=== PATIENT | female | born 1950 | race Caucasian/White ===

== ENCOUNTER 2022-11-23 08:17 | Outpatient (OUT) | payer MEDICARE, OTHER, SELFPAY ==
[2022-11-23 09:02] LABS: Basophils Percent Auto 0.9 % (0.2-2.0); Eosinophils Absolute Auto 0.2 10^3/uL (0.0-0.7); Eosinophils Percent Auto 5.2 % (0.9-7.0); Hematocrit 39.9 % (36.0-48.0); Hemoglobin 13.1 g/dL (12.0-16.0); Immature Granulocytes Abs Auto 0.01 10^3/uL (0.00-0.03); Immature Granulocytes Pct Auto 0.2 % (0.0-0.5); Lymphocytes Absolute Auto 1.5 10^3/uL (1.2-3.8); Lymphocytes Percent Auto 34.4 % (20.5-60.0); Mean Corpuscular HGB Conc 32.8 g/dL (29.9-35.2); Mean Corpuscular Hemoglobin 32.1 pg (26.7-34.0); Mean Corpuscular Volume 97.8 fL (81.0-99.0); Mean Platelet Volume 9.5 fL (9.5-13.5); Monocytes Absolute Auto 0.4 10^3/uL (0.3-0.8); Monocytes Percent Auto 8.8 % (1.7-12.0); Neutrophils Absolute Auto 2.2 10^3/uL (1.4-6.5); Neutrophils Percent Auto 50.5 % (43.0-75.0); Platelet Count 257 10^3/uL (150-450); Red Blood Count 4.08 10^6/uL (4.20-5.40); Red Cell Distribution Width 11.9 % (11.0-15.0); White Blood Count 4.4 10^3/uL (4.0-11.0)
[2022-11-23 10:13] LABS: Estimated Average Glucose 117 mg/dL; Glycohemoglobin A1C 5.7 % (4.5-6.2)
[2022-11-23 10:19] LABS: Alanine Aminotransferase 21 U/L (14-59); Albumin Globulin Ratio 1.1; Albumin Level 3.7 g/dL (3.4-5.0); Alkaline Phosphatase 88 U/L (46-116); Anion Gap 12.2; Aspartate Amino Transferase 20 U/L (15-37); Bilirubin Total 0.6 mg/dL (0.2-1.0); Chloride 106 mmol/L (98-107); Estimated GFR (African America >60 (>=60); Estimated GFR (Non-African Ame 55 (>=60); Globulin 3.4 g/dL; Glucose 99 mg/dL (74-106); Potassium 4.2 mmol/L (3.5-5.1); Sodium 141 mmol/L (136-145); Total Protein 7.1 g/dL (6.4-8.2)
[2022-11-23 10:29] LABS: Chol HDL Ratio 2.2; Cholesterol 173 mg/dL (<=200); HDL Cholesterol 77 mg/dL (40-60); Thyroid Stimulating Hormone 2.484 uIU/mL (0.358-3.740); Triglycerides 103 mg/dL (<=150); VLDL CHOLESTEROL 20.6 mg/dL
== END 2022-11-23 08:18 | disposition home or self-care (01) ==
LOC: LAB 08:25
PROVIDERS: PCP Family Medicine; Visit Provider Family Medicine
DX: I10 Essential (primary) hypertension (principal); M91.0 Juvenile osteochondrosis of pelvis; M19.90 Unspecified osteoarthritis, unspecified site; R73.9 Hyperglycemia, unspecified
CPT/HCPCS: 36415; 80053; 80061; 82306; 83036; 84436; 84443; 85025

== ENCOUNTER 2023-01-19 09:15 | Outpatient (OUT) | payer MEDICARE, OTHER, SELFPAY ==
--- NOTE | 2023-01-19 09:23 | XR_ITS ---
[address] [address] Patient Name: GALDINO STAHL MRN: [id number] date: 1950 Sex: F Assigned Patient Location: [facility] Current Patient Location: [facility] Accession/Order Number: [id number] Exam Date: 01/19/2023 09:28 Report Date: 01/19/2023 10:18 At the request of: LISA YEPEZ Procedure: XR lumbar spine 2-3V EXAM: XR lumbar spine 2-3V HISTORY: Lumbar Spondylosis M47.816 COMPARISON: None. TECHNIQUE: 3 views FINDINGS: Mild to moderate S-shaped convex curvature of the lumbar spine. Maintained vertebral body heights and disc spaces. Mild facet arthropathy of L4-S1. No acute fracture. Nonobstructive bowel gas pattern. XR/XR lumbar spine 2-3V IMPRESSION: Facet arthropathy as above. Electronically authenticated by: KEYLA KAPLAN Date: 01/19/2023 10:18
== END 2023-01-19 09:16 | disposition home or self-care (01) ==
LOC: RAD 09:17
PROVIDERS: PCP Family Medicine; Visit Provider Family Medicine
DX: M47.816 Spondylosis without myelopathy or radiculopathy, lumbar region (principal)
CPT/HCPCS: 72100

== ENCOUNTER 2023-11-30 08:27 | Outpatient (OUT) | payer MEDICARE, OTHER, SELFPAY ==
--- NOTE | 2023-11-30 | XR_ITS ---
The [address] [address] Patient Name: GALDINO STAHL MRN: [id number] date: 1950 Sex: F Assigned Patient Location: LAB Current Patient Location: LAB Accession/Order Number: [id number] Exam Date: 11/30/2023 08:50 Report Date: 11/30/2023 09:38 At the request of: LISA YEPEZ Procedure: XR lumbar spine 2-3V EXAMINATION: XR lumbar spine 2-3V HISTORY: M46.1, Inflammation of both sacroiliac joints COMPARISON: 01/19/2023 FINDINGS: BONES: Rotatory dextroscoliosis centered at L3. Mild degenerative spondylosis. [id number] facet osteoarthropathy DISC SPACES: Normal. No significant disc height narrowing, subluxation, or endplate abnormality. PARASPINOUS: Negative. No paraspinous abnormality is seen. OTHER: No acute abnormality of the sacroiliac joints. XR/XR lumbar spine 2-3V IMPRESSION: Stable degenerative changes with rotatory dextroscoliosis Electronically authenticated by: STUART SOL Date: 11/30/2023 09:38
[2023-11-30 08:48] LABS: Basophils Percent Auto 0.9 % (0.2-2.0); Eosinophils Absolute Auto 0.3 10^3/uL (0.0-0.7); Eosinophils Percent Auto 6.7 % (0.9-7.0); Hematocrit 41.8 % (36.0-48.0); Hemoglobin 13.5 g/dL (12.0-16.0); Lymphocytes Absolute Auto 1.6 10^3/uL (1.2-3.8); Lymphocytes Percent Auto 34.4 % (20.5-60.0); Mean Corpuscular HGB Conc 32.3 g/dL (29.9-35.2); Mean Corpuscular Hemoglobin 31.7 pg (26.7-34.0); Mean Corpuscular Volume 98.1 fL (81.0-99.0); Mean Platelet Volume 9.5 fL (9.5-13.5); Monocytes Absolute Auto 0.5 10^3/uL (0.3-0.8); Monocytes Percent Auto 9.7 % (1.7-12.0); Neutrophils Absolute Auto 2.2 10^3/uL (1.4-6.5); Neutrophils Percent Auto 48.3 % (43.0-75.0); Platelet Count 268 10^3/uL (150-450); Red Blood Count 4.26 10^6/uL (4.20-5.40); Red Cell Distribution Width 11.9 % (11.0-15.0); White Blood Count 4.6 10^3/uL (4.0-11.0)
[2023-11-30 09:06] LABS: Estimated Average Glucose 117 mg/dL; Glycohemoglobin A1C 5.7 % (4.5-6.2)
[2023-11-30 09:17] LABS: Anion Gap 14.3; Carbon Dioxide 26.2 mmol/L (21.0-32.0); Chloride 105 mmol/L (98-107); Estimated GFR (African America >60 (>=60); Estimated GFR (Non-African Ame 52 (>=60); Glucose 108 mg/dL (74-106); Potassium 4.5 mmol/L (3.5-5.1); Sodium 141 mmol/L (136-145)
== END 2023-11-30 08:28 | disposition home or self-care (01) ==
LOC: LAB 08:29
PROVIDERS: PCP Family Medicine; Visit Provider Family Medicine
DX: Z00.00 Encounter for general adult medical examination without abnormal findings (principal); M46.1 Sacroiliitis, not elsewhere classified; R73.9 Hyperglycemia, unspecified; R79.89 Other specified abnormal findings of blood chemistry
CPT/HCPCS: 36415; 72100; 80048; 82306; 83036; 85025

== ENCOUNTER 2023-12-27 10:20 | Outpatient (OUT) | payer MEDICARE, OTHER, SELFPAY ==
--- OUTSIDE RECORDS SUMMARY | 2023-12-27 10:42 | XMS_ITS | CCD ---
Author Organization [facility] Care Team Providers Care Account Development Specialist Name Role Phone HOUSE, DR PICKARD Admitting Unavailable HOUSE, DR PICKARD Attending Unavailable HOUSE, DR PICKARD Consulting Unavailable HOUSE, DR PICKARD Primary Care Unavailable HOUSE, DR PICKARD Admitting Unavailable HOUSE, DR PICKARD Attending Unavailable HOUSE, DR PICKARD Consulting Unavailable HOUSE, DR PICKARD Primary Care Unavailable MONICA, DR ELLIOTT Paredes Consulting Unavailable HOUSE, DR PICKARD Admitting Unavailable HOUSE, DR PICKARD Attending Unavailable HOUSE, DR PICKARD Consulting Unavailable HOUSE, DR PICKARD Primary Care Unavailable HOUSE, DR PICKARD Admitting Unavailable HOUSE, DR PICKARD Attending Unavailable HOUSE, DR PICKARD Consulting Unavailable HOUSE, DR PICKARD Primary Care Unavailable Crystal Jose Unavailable Allergies Allergy Classification Reported Allergen(s) Allergy Type Date of Onset Reaction(s) Facility (3 sources) methylPREDNISolone Drug Allergy bad reaction [facility] [employer] Other Medications Current Medications Medication Drug Class(es) Dates Sig (Normalized) Sig (Original) Calcium (3 sources) Phosphate Binder, Calcium Calcium + D Active calcium carbonate 1250 mg oral tablet (1 source) Start: 11-28-2023 take 500 mg by mouth once daily Calcium Carbonate Active 500 MG PO Daily November 28, 2023 12:00am cholecalciferol 0.025 mg oral capsule (2 sources) Vitamin D Start: 11-28-2023 End: 11-29-2023 take 25 ug by mouth once daily Cholecalciferol (Vitamin D3) Active 25 MCG PO Daily November 29, 2023 1:49pm doxycycline hyclate 50 mg delayed release oral tablet (3 sources) Tetracycline-class Drug take 1 tablet by mouth every twenty-four hours Doxycycline Hyclate 50 MG 1 tablet once a day Active metroNIDAZOLE (3 sources) Nitroimidazole Antimicrobial metroNIDAZOLE Active raloxifene hydrochloride 60 mg oral tablet (5 sources) Estrogen Agonist/Antagonist Start: 11-28-2023 End: 11-29-2023 take 1 tablet by mouth once daily Raloxifene Active 60 MG PO Daily November 29, 2023 2:18pm Free[employer] tablet once a day; Note: Source Status: Taking; Provider: Damon Rojas ( ) take 1 tablet by maru th every twenty-four hours Raloxifene HCl 60 MG 1 tablet once a day Active salmon calcitonin 200 unt/actuat nasal spray (9 sources) Calcitonin Start: 11-28-2023 End: 11-29-2023 Calcitonin ([place]) Active 1 SPRAY intranasal (ALT) Daily November 29, 2023 2:18pm Fortical Active Calcitonin ([place]m on) Active Vitamin D (3 sources) Vitamin D Active Completed/Discontinued Medications Medication Drug Class(es) Dates Sig (Normalized) Sig (Original) acetaminophen 325 mg / HYDROcodone bitartrate 5 mg oral tablet (4 sources) Opioid Agonist Start: 11-28-2023 End: 11-29-2023 take 1 tablet by mouth every six hours as needed Hydrocodone-Acetami nophen Discontinued 1 TAB PO Every 6 hours November 28, 2023 12:00am November 29, 2023 1:49pm [employer] tablet as needed Orally every 6 hrs; Note: Source Status: Start; Refills: 0; Qty: 28 Tablet; Provider: Damon Stratton Start: 01-20-2023 take 1 tablet by maru th every six hours HYDROcodone-Acetaminophen 5-325 MG 1 tab let as needed Orally every 6 hrs for 7 days Jan, Active Problems Active Problems Problem Classification Problem Date Documented Da te Episodic/Chronic Chronic kidney disease (4 sources) Chronic kidney disease, unspecified; Translations: [CHRONIC KIDNEY DISEASE UNSPECIFIED] Onset: 03-03-2021 Chronic Diabetes mellitus without complication (3 sources) Hyperglycemia, unspecified; Translations: [Hyperglycemia] Onset: 12-02-2021 11-29-2023 Episodic Essential hypertension (1 source) Essential (primary) hypertension; Translations: [ESSENTIAL PRIMARY HYPERTENSION] Onset: 12-02-2021 Chronic Osteoarthritis (1 source) Unspecified osteoarthritis, unspecified site; Translations: [UNSPECIFIED OSTEOARTHRITIS UNS SITE] Onset: 12-02-2021 Chronic Osteoporosis (7 sources) Age-related osteoporosis without current pathological fracture; Translations: [Osteoporosis] Onset: 11-29-2021 Chronic Other bone disease and musculoskeletal deformities (1 source) Osteopenia; Translations: [Other specified disorders of bone density and structure, unspecified site] 11-29-2023 Episodic Other bone disease and musculoskeletal deformities (1 source) Other specified disorders of bone density and structure, unspecified site; Translations: [Disorder of bone and cartilage, unspecified] 11-29-2023 Episodic Other nervous system disorders (3 sources) Right-sided piriformis syndrome; Translations: [Lesion of sciatic nerve, right lower limb] Chronic Other nervous system disorders (1 source) Lesion of sciatic nerve, right lower limb Chronic Other screening for suspected conditions (not mental disorders or infectious disease) (6 sources) Encounter for screening mammogram for malignant neoplasm of breast; Translations: [Decreased vitamin D] Onset: 01-25-2022 Episodic Spondylosis; intervertebral disc disorders; other back problems (6 sources) Lumbar spondylosis; Translations: [Spondylosis without myelopathy or radiculopathy, lumbar region] Chronic Past or Other Problems Problem Classification Problem Date Documented Date Episodic/Chronic Disorders of teeth and jaw (1 source) Arthralgia of temporomandibular joint, unspecified side; Translations: [ARTHRALGIA TMD JOINT UNSPEC SIDE] Onset: 02-15-2021 Episodic Other connective tissue disease (4 sources) Myalgia, unspecified site; Translations: [MYALGIA UNSPECIFIED SITE] Onset: 01-31-2021 Episodic Other nervous system disorders (1 source) Drug-induced myopathy; Translations: [DRUG-INDUCED MYOPATHY] Onset: 02-15-2021 Episodic Results Test Name Value Interpretation Reference Range Facility XR DEXA BONE DENSITYon 01-26 XR DEXA BONE DENSITY EXAMINATION: XR DEX A BONE DENSITY, 01/25/2022 9:55 AM EDT HISTORY: Osteoporosis COMPARISON: DEXA bone densitometry 11/13/2018 TECHNIQUE: Dual-energy X-ray absorptiometry (DEXA) bone density study performed for the axial skeleton. FINDINGS: SPINE ANALYSIS: Average bone mineral density is 0.57 g/cm2. T-score (standard deviation relative to young adult mean): -2.7 . -3.0% change since prior study. HIP ANALYSIS: Lowest bone mineral density is within the femoral neck, 0.722 g/cm2. T-score (standard deviation relative to young adult mean): -2.3 . -1.1% change since prior study. IMPRESSION: World Torin Organization Classification: Osteoporosis - High Fracture Risk Electronically authenticated by: ELLIOTT BECERRIL Date: 2022-01-26 06:54 Normal [facility] MG MAMM SCREEN 3D KING CADon 01-25-2022 MG MAMM SCREEN 3D KING CAD Patient: ABBY STAHL Exam Date: 01/25/2022 : 1950 Gender:F Ordering : DR MELLY OH D.O. Admission #: [id number] Family : Order #: [id number] CLICK HERE TO VIEW EXAM RADIOLOGY REPORT PROCEDURE: MAMMOGRAM SCREENING 3D BILATERAL CAD COMPARISON: MG MAMM SCREEN KING W CAD, 10/09/2018. MG MAMM SCREEN KING W CAD, 12/06/2016. INDICATIONS: Screening mammography Calculator Name NCI Breast Cancer Risk Assessment Tool 5 Year Breast Cancer Risk 1.90% Lifetime Breast Cancer Risk 5.90% Personal Breast Cancer No Personal Ovarian Cancer No Treatments None Family Cancers None LOCATION: [facility] BREAST COMPOSITION: Heterogeneously dense,which may obscure small masses. FINDINGS: DIAGNOSTIC CATEGORY 1--NEGATIVE. RIGHT BREAST: No significant suspicious finding. No significant change has occurred. LEFT BREAST: No significant suspicious finding. No significant change has occurred. RECOMMENDATIONS: ROUTINE MAMMOGRAM AND CLINICAL EVALUATION IN 12 MONTHS. PLEASE NOTE: A NORMAL MAMMOGRAM DOES NOT EXCLUDE THE POSSIBILITY OF BREAST CANCER. A CLINICALLY SUSPICIOUS PALPABLE LUMP SHOULD BE BIOPSIED. Dictated by: Elliott Becerril M.D. on 01/25/2022 at 13:51 Approved by: Elliott Becerril M.D. on 01/25/2022 at 13:54 Normal [facility] CBC AUTO DIFFon 11-29-2021 BASO # 0.0 103/ul Normal 0.0-0.1 [facility] Comment on above: Performed By: #### C BC #### [facility] [address] [address] [address] Torri Gomez Basophils/100 WBC (Bld) 0.7 % Normal 0.2-2.0 [facility] Comment on above: Performed By: #### C BC #### [facility] [address] [place] [address] Dr. Torri Gomez EO # 0.1 103/ul Normal 0.0-0.[address] [facility] Comment on above: Performed By: #### C BC #### [facility] [address] [place] [address] Dr. Torri Gomez Eosinophils/100 WBC (Bld) 2.4 % Normal 0.9-7.0 [facility] Comment on above: Performed By: #### C BC #### [facility] [address] [place] [address] Dr. Torri Gomez Erythrocyte distribution width (RBC) [Ratio] 11.7 % Normal 11.0-15.0 [facility] Comment on above: Performed By: #### C BC #### [facility] [address] [place] [address] Dr. Torri Gomez Hematocrit (Bld) [Volume fraction] 43.5 % Normal 36.0-48.0 [facility] Comment on above: Performed By: #### C BC #### [facility] [address] [place] [address] Dr. Torri Gomez Hemoglobin (Bld) [Mass/Vol] 14.2 g/dL Normal 12.0-16.[address] [facility] Comment on above: Performed By: #### C BC #### [facility] [address] [place] [address] Dr. Torri Gomez IG # 0.01 10e3/ul Normal 0.00-0.03 [facility] Comment on above: Performed By: #### C BC #### [facility] [address] [place] [address] Dr. Torri Gomez IG % 0.2 % Normal 0.0-0.[address] [facility] Comment on above: Performed By: #### C BC #### [facility] [address] [place] [address] Dr. Torri Gomez LYMPH # 1.5 103/ul Normal 1.2-3.[address] [facility] Comment on above: Performed By: #### C BC #### [facility] [address] [place] [address] Dr. Torri Gomez Lymphocytes/100 WBC (Bld) 35.6 % Normal 20.5-60.0 [facility] Comment on above: Performed By: #### C BC #### [facility] [address] [place] [address] Dr. Torri Gomez MANUAL DIFF REQ NO Normal [facility] Comment on above: Performed By: #### C BC #### [facility] [address] [place] [address] Dr. Torri Gomez MCH (RBC) [Entitic mass] 32.3 pg Normal 26.7-34.0 [facility] Comment on above: Performed By: #### C BC #### [facility] [address] [place] [address] Dr. Torri Gomez MCHC (RBC) [Mass/Vol] 32.6 g/dL Normal 29.9-35.2 [facility] Comment on above: Performed By: #### C BC #### [facility] [address] [place] [address] Dr. Torri Gomez MCV (RBC) [Entitic vol] 98.9 fL Normal 81.0-99.0 [facility] Comment on above: Performed By: #### C BC #### [facility] [address] [place] [address] Dr. Torri Gomez MONO # 0.4 103/ul Normal 0.3-0.[address] [facility] Comment on above: Performed By: #### C BC #### [facility] [address] [place] [address] Dr. Torri Gomez Monocytes/100 WBC (Bld) 9.8 % Normal 1.7-12.[address] [facility] Comment on above: Performed By: #### C BC #### [facility] [address] [place] [address] Dr. Torri Gomez NEUT # 2.2 103/ul Normal 1.4-6.5 [facility] Comment on above: Performed By: #### C BC #### [facility] [address] [place] [address] Dr. Torri Gomez Neutrophils/100 WBC (Bld) 51.3 % Normal 43.0-75.0 [facility] Comment on above: Performed By: #### C BC #### [facility] [address] [place] [address] Dr. Torri Gomez Platelet mean volume (Bld) [Entitic vol] 10.4 fL Normal 9.5-13.5 [facility] Comment on above: Performed By: #### C BC #### [facility] [address] [place] [address] Dr. Torri Gomez PLT 269 103/ul Normal 150-450 [facility] Comment on above: Performed By: #### C BC #### [facility] [address] [place] [address] Dr. Torri Gomez RBC 4.40 106/ul Normal 4.20-5.40 [facility] Comment on above: Performed By: #### C BC #### [facility] [address] [place] [address] Dr. Torri Gomez WBC 4.2 103/ul Normal 4.0-11.0 [facility] Comment on above: Performed By: #### C BC #### [facility] [address] [place] [address] Dr. Torri Gomez GLYCOHEMOGLOBIN A1Con 2021 ADA RECOMMENDATION SEE BELOW Normal [facility] Comment on above: Result Comment: ADA RECOMMENDED LIMIT 4.0 - 6.0 ADA THERAPEUTIC TARGET < 7.0 ACTION SUGGESTED > 7.0 Performed By: #### M CHANTAL, CMP #### [facility] [address] [place] [address] Jesi Briscoe Glucose [Mass/Vol] 120 mg/dL Normal [facility] Comment on above: Performed By: #### M CHANTAL, CMP #### [facility] [address] [place] [address] Jesi Briscoe HbA1c (Bld) [Mass fraction] 5.8 % Normal 4.5-6.2 [facility] Comment on above: Performed By: #### M CHANTAL, CMP #### [facility] [address] [place] [address] Jesi Briscoe LIPID PROFILEon 11-29-2021 CHOL-HDL RATIO NORM SEE BELOW Normal [facility] Comment on above: Result Comment: 3.3 - 4.4 LOW RISK 4.4 - 7.1 AVERAGE RISK 7.1 - 11.0 MODERATE RISK >11.0 HIGH RISK Performed By: #### T 4, LIPID, TSH, CMP #### [facility] [address] [address] [address] Torri Gomez Cholesterol [Mass/Vol] 198 mg/dL Normal <=200 [facility] Comment on above: Performed By: #### T 4, LIPID, TSH, CMP #### [facility] [address] [address] [address] Torri Gomez Cholesterol in HDL [Mass/Vol] 79 mg/dL Critically high 40-60 [facility] Comment on above: Performed By: #### T 4, LIPID, TSH, CMP #### [facility] [address] [address] [address] Torri Gomez Cholesterol in LDL [Mass/Vol] 101.0 mg/dL Normal [facility] Comment on above: Performed By: #### T 4, LIPID, TSH, CMP #### [facility] [address] [address] [address] Torri Gomez Cholesterol.total/Cho lesterol in HDL [Mass ratio] 2.5 {ratio} Normal [facility] Comment on above: Performed By: #### T 4, LIPID, TSH, CMP #### [facility] [address] [address] [address] Torri Gomez HDL NORMAL > or = 60 mg/dl - LO W CARDIOVASCULAR RISK <40 mg/dl - HIGH CARDIOVASCULAR RISK Normal [facility] Comment on above: Performed By: #### T 4, LIPID, TSH, CMP #### [facility] [address] [place] [address] Dr. Torri Gomez LDL CALC NORMAL SEE BELOW Normal [facility] Comment on above: Result Comment: <100 mg/dl OPTIMAL 100 - 129 mg/dl NEAR OR ABOVE OPTIMAL 130 - 159 mg/dl BORDERLINE HIGH 160 - 189 mg/dl HIGH >190 mg/dl VERY HIGH Performed By: #### T 4, LIPID, TSH, CMP #### [facility] [address] [place] [address] Dr. Torri Gomez Triglyceride [Mass/Vol] 90 mg/dL Normal <=150 [facility] Comment on above: Performed By: #### T 4, LIPID, TSH, CMP #### [facility] [address] [place] [address] Dr. Torri Gomez VLDL CALC 18.0 mg/dL Normal [facility] Comment on above: Performed By: #### T 4, LIPID, TSH, CMP #### [facility] [address] [place] [address] Dr. Torri Gomez PROF 14(COMP METB)on 022 Albumin [Mass/Vol] 4.1 g/dL Normal 3.4-5.0 [facility] Comment on above: Performed By: #### T 4, LIPID, TSH, CMP #### [facility] [address] [place] [address] Dr. Torri Gomez Albumin/Globulin [Mass ratio] 1.2 {ratio} Normal [facility] Comment on above: Performed By: #### T 4, LIPID, TSH, CMP #### [facility] [address] [place] [address] Dr. Torri Gomez ALP [Catalytic activity/Vol] 88 U/L Normal 46-116 [facility] Comment on above: Performed By: #### T 4, LIPID, TSH, CMP #### [facility] [address] [place] [address] Dr. Torri Gomez ALT [Catalytic activity/Vol] 22 U/L Normal 14-59 [facility] Comment on above: Performed By: #### T 4, LIPID, TSH, CMP #### [facility] [address] [place] [address] Dr. Torri Gomez Anion gap [Moles/Vol] 13.6 mmol/L Normal [facility] Comment on above: Performed By: #### T 4, LIPID, TSH, CMP #### [facility] [address] [place] [address] Dr. Torri Gomez AST [Catalytic activity/Vol] 18 U/L Normal 15-37 [facility] Comment on above: Performed By: #### T 4, LIPID, TSH, CMP #### [facility] [address] [place] [address] Dr. Torri Gomez Bilirubin [Mass/Vol] 0.5 mg/dL Normal 0.2-1.0 [facility] Comment on above: Performed By: #### T 4, LIPID, TSH, CMP #### [facility] [address] [place] [address] Dr. Torri Gomez Calcium [Mass/Vol] 9.1 mg/dL Normal 8.5-10.1 [facility] Comment on above: Performed By: #### T 4, LIPID, TSH, CMP #### [facility] [address] [place] [address] Dr. Torri Gomez Chloride [Moles/Vol] 104 mmol/L Normal 98-107 [facility] Comment on above: Performed By: #### T 4, LIPID, TSH, CMP #### [facility] [address] [place] [address] Dr. Torri Gomez CO2 [Moles/Vol] 26.8 mmol/L Normal 21.0-32.0 [facility] Comment on above: Performed By: #### T 4, LIPID, TSH, CMP #### [facility] [address] [place] [address] Dr. Torri Gomez Creatinine [Mass/Vol] 1.06 mg/dL Critically high 0.55-1.02 [facility] Comment on above: Performed By: #### T 4, LIPID, TSH, CMP #### [facility] [address] [place] [address] Dr. Torri Gomez EGFR-AF [place] >60 Normal >=60 [facility] Comment on above: Performed By: #### T 4, LIPID, TSH, CMP #### [facility] [address] [place] [address] Dr. Torri Gomez EGFR-NON AF [place] 51 mL/min/1.73m2 Critically low >=[address] [facility] Comment on above: Performed By: #### T 4, LIPID, TSH, CMP #### [facility] [address] [place] [address] Dr. Torri Gomez Globulin (S) [Mass/Vol] 3.4 g/dL Normal [facility] Comment on above: Performed By: #### T 4, LIPID, TSH, CMP #### [facility] [address] [place] [address] Dr. Torri Gomez Glucose [Mass/Vol] 93 mg/dL Normal 74-106 [facility] Comment on above: Performed By: #### T 4, LIPID, TSH, CMP #### [facility] [address] [place] [address] Dr. Torri Gomez Potassium [Moles/Vol] 4.4 mmol/L Normal 3.5-5.1 [facility] Comment on above: Performed By: #### T 4, LIPID, TSH, CMP #### [facility] [address] [place] [address] Dr. Torri Gomez Protein [Mass/Vol] 7.5 g/dL Normal 6.4-8.2 [facility] Comment on above: Performed By: #### T 4, LIPID, TSH, CMP #### [facility] [address] [place] [address] Dr. Torri Gomez Sodium [Moles/Vol] 140 mmol/L Normal 136-145 [facility] Comment on above: Performed By: #### T 4, LIPID, TSH, CMP #### [facility] [address] [place] [address] Dr. Torri Gomez Urea nitrogen [Mass/Vol] 21.0 mg/dL Critically high 7.0-18.0 [facility] Comment on above: Performed By: #### T 4, LIPID, TSH, CMP #### [facility] [address] [place] [address] Dr. Torri Gomez Urea nitrogen/Creatinine [Mass ratio] 19.8 mg/mg Normal [facility] Comment on above: Performed By: #### T 4, LIPID, TSH, CMP #### [facility] [address] [place] [address] Dr. Torri Gomez T4on 11-29-2021 T4 [Mass/Vol] 6.70 ug/dL Normal 4.80-13.90 [facility] Comment on above: Performed By: #### M CHANTAL, CMP #### [facility] [address] [place] [address] Jesi Lamaren TSHon 11-29-2021 TSH 2.359 uIU/mL Normal 0.358-3.740 [facility] Comment on above: Performed By: #### T 4, LIPID, TSH, CMP #### [facility] [address] [place] [address] Dr. Torri Gomez VITAMIN D 25 OHon 11-29-2021 VIT D 25-OH 70.8 ng/mL Normal [facility] Comment on above: Performed By: #### Danielle CORNEJO, CMP #### [facility] [address] [place] [address] Jesisanaz Briscoe VIT D RANGES SEE BELOW Normal [facility] Comment on above: Result Comment: <20 ng/mL Vit D deficient 20 - <30 ng/mL Vit D insufficient 30 - 100 ng/mL Vit D sufficient >100 ng/mL Potential Toxicity Performed By: #### Danielle CORNEJO, CMP #### [facility] [address] [place] [address] Jesi Lamaren PROF 14(COMP METB)on 021 Albumin [Mass/Vol] 4.0 g/dL Normal 3.5-5.0 [facility] Comment on above: Performed By: #### C MP #### [facility] [address] [place] [address] Dr. Torri Gomez Albumin/Globulin [Mass ratio] 1.2 {ratio} Normal [facility] Comment on above: Performed By: #### C MP #### [facility] [address] [place] [address] Dr. Torri Gomez ALP [Catalytic activity/Vol] 83 U/L Normal 38-126 [facility] Comment on above: Performed By: #### C MP #### [facility] [address] [place] [address] Dr. Torri Gomez ALT [Catalytic activity/Vol] 16 U/L Normal 9-52 [facility] Comment on above: Performed By: #### C MP #### [facility] [address] [address] [address] Torri Gomez Anion gap [Moles/Vol] 13.9 mmol/L Normal Th e [facility] Comment on above: Performed By: #### C MP #### [facility] [address] [address] [address] Torri Gomez AST [Catalytic activity/Vol] 28 U/L Normal 14-36 [facility] Comment on above: Performed By: #### C MP #### [facility] [address] [address] [address] Torri Gomez Bilirubin [Mass/Vol] 0.6 mg/dL Normal 0.2-1.3 [facility] Comment on above: Performed By: #### C MP #### [facility] [address] [address] [address] Torri Gomez Calcium [Mass/Vol] 9.1 mg/dL Normal 8.4-10.2 [facility] Comment on above: Performed By: #### C MP #### [facility] [address] [address] [address] Torri Gomez Chloride [Moles/Vol] 103 mmol/L Normal 98-107 [facility] Comment on above: Performed By: #### C MP #### [facility] [address] [address] [address] Torri Gomez CO2 [Moles/Vol] 25.1 mmol/L Normal 22.0-30.[address] [facility] Comment on above: Performed By: #### C MP #### [facility] [address] [address] [address] Torri Gomez Creatinine [Mass/Vol] 1.07 mg/dL Critically high 0.52-1.04 [facility] Comment on above: Performed By: #### C MP #### [facility] [address] [address] [address] Torri Gomez EGFR-AF [place]AN >60 Normal >=[address] [facility] Comment on above: Performed By: #### C MP #### [facility] [address] [address] [address] Torri Gomez EGFR-NON AF [place] 51 mL/min/1.73m2 Critically low >=60 [facility] Comment on above: Performed By: #### C MP #### [facility] [address] [address] [address] Torri Gomez Globulin (S) [Mass/Vol] 3.4 g/dL Normal [facility] Comment on above: Performed By: #### C MP #### [facility] [address] [address] [address] Torri Gomez Glucose [Mass/Vol] 131 mg/dL Critically high 74-106 [facility] Comment on above: Performed By: #### C MP #### [facility] [address] [address] [address] Torri Gomez Potassium [Moles/Vol] 5.0 mmol/L Normal 3.4-5.0 [facility] Comment on above: Performed By: #### C MP #### [facility] [address] [address] [address] Torri Gomez Protein [Mass/Vol] 7.4 g/dL Normal 6.1-8.2 [facility] Comment on above: Performed By: #### C MP #### [facility] [address] [address] [address] Torri Gomez Sodium [Moles/Vol] 137 mmol/L Normal 137-145 [facility] Comment on above: Performed By: #### C MP #### [facility] [address] [address] [address] Torri Gomez Urea nitrogen [Mass/Vol] 26.0 mg/dL Critically high 7.0-17.0 [facility] Comment on above: Performed By: #### C MP #### [facility] [address] [address] [address] Torri Gomez Urea nitrogen/Creatinine [Mass ratio] 24.3 mg/mg Normal [facility] Comment on above: Performed By: #### C MP #### [facility] [id number] Torri Gomez CBC AUTO DIFFon 01-31-2021 BASO # 0.0 103/ul Normal 0.0-0.1 [facility] Comment on above: Performed By: #### C BC #### [facility] [address] [place], [place] [address] Jesi Rachna Basophils/100 WBC (Bld) 0.4 % Normal 0.2-2.[address] [facility] Comment on above: Performed By: #### C BC #### [facility] [address] [place] [address] Jesi Rachna EO # 0.0 103/ul Normal 0.0-0.7 [facility] Comment on above: Performed By: #### C BC #### [facility] [address] [place] [address] Jesi Rachna Eosinophils/100 WBC (Bld) 0.6 % Critically low 0.9-7.0 [facility] Comment on above: Performed By: #### C BC #### [facility] [address] [place] [address] Jesi Rachna Erythrocyte distribution width (RBC) [Ratio] 11.9 % Normal 11.0-15.0 [facility] Comment on above: Performed By: #### C BC #### [facility] [address] [place] [address] Jesi Rachna Hematocrit (Bld) [Volume fraction] 38.5 % Normal 36.0-48.[address] [facility] Comment on above: Performed By: #### C BC #### [facility] [address] [place] [address] Jesi Rachna Hemoglobin (Bld) [Mass/Vol] 12.1 g/dL Normal 12.0-16.[address] [facility] Comment on above: Performed By: #### C BC #### [facility] [address] [place] [address] Jesi Rachna IG # 0.01 10e3/ul Normal 0.00-0.[address] [facility] Comment on above: Performed By: #### C BC #### [facility] [address] [id number] Jesi Rachna IG % 0.1 % Normal 0.0-0.[address] [facility] Comment on above: Performed By: #### C BC #### [facility] [address] [place], [place] [address] Jesi Rachna LYMPH # 1.7 103/ul Normal 1.2-3.[address] [facility] Comment on above: Performed By: #### C BC #### [facility] [address] [place], [place] [address] Jesi Rachna Lymphocytes/100 WBC (Bld) 26.1 % Normal 20.5-60.[address] [facility] Comment on above: Performed By: #### C BC #### [facility] [address] [place], [place] [address] Jesi Rachna MANUAL DIFF REQ NO Normal [facility] Comment on above: Performed By: #### C BC #### [facility] [address] [place] [address] Jesi Rachna MCH (RBC) [Entitic mass] 31.8 pg Normal 26.7-34.0 [facility] Comment on above: Performed By: #### C BC #### [facility] [address] [place] [address] Jesi Rachna MCHC (RBC) [Mass/Vol] 31.4 g/dL Normal 29.9-35.[address] [facility] Comment on above: Performed By: #### C BC #### [facility] [address] [place] [address] Jesi Rachna MCV (RBC) [Entitic vol] 101.0 fL Critically high 81.0-99.[address] [facility] Comment on above: Performed By: #### C BC #### [facility] [address] [place] [address] Jesi Rachna MONO # 0.4 103/ul Normal 0.3-0.[address] [facility] Comment on above: Performed By: #### C BC #### [facility] [address] [place], [place] [address] Jesi Rachna Monocytes/100 WBC (Bld) 5.2 % Normal 1.7-12.[address] [facility] Comment on above: Performed By: #### C BC #### [facility] [address] [place] [address] Jesi Briscoe NEUT # 4.5 103/ul Normal 1.4-6.[address] [facility] Comment on above: Performed By: #### C BC #### [facility] [address] [place] [address] Jesi Briscoe Neutrophils/100 WBC (Bld) 67.6 % Normal 43.0-75.[address] [facility] Comment on above: Performed By: #### C BC #### [facility] [address] [place], [place] [address] Jesi Briscoe Platelet mean volume (Bld) [Entitic vol] 10.3 fL Normal 9.5-13.[address] [facility] Comment on above: Performed By: #### C BC #### [facility] [address] [place] [address] Jesisanaz Briscoe PLT 329 103/ul Normal 150-[address] [facility] Comment on above: Performed By: #### C BC #### [facility] [address] [place], [place] [address] Jesi Briscoe RBC 3.81 106/ul Critically low 4.20-5.40 [facility] Comment on above: Performed By: #### C BC #### [facility] [address] [place] [address] Jesisanaz Briscoe WBC 6.7 103/ul Normal 4.0-11.[address] [facility] Comment on above: Performed By: #### C BC #### [facility] [address] [place], [place] [address] Jesi Briscoe MYOGLOBINon 01-31-2021 JIMBO 44.0 ng/mL Normal <=61.[address] [facility] Comment on above: Performed By: #### M YO, CMP #### [facility] [address] [place] [address] Jesi Rachna PROF 14(COMP METB)on 08-30-2 021 Albumin [Mass/Vol] 3.7 g/dL Normal 3.5-5.0 [facility] Comment on above: Performed By: #### Danielle CORNEJO, CMP #### [facility] [address] [place], [place] [address] Jesi Rachna Albumin/Globulin [Mass ratio] 0.9 {ratio} Normal [facility] Comment on above: Performed By: #### M CHANTAL, CMP #### [facility] [address] [id number] Jesi Rachna ALP [Catalytic activity/Vol] 81 U/L Normal 38-126 [facility] Comment on above: Performed By: #### Danielle CORNEJO, CMP #### [facility] [address] [place] [address] Jesi Rachna ALT [Catalytic activity/Vol] 17 U/L Normal 9-52 [facility] Comment on above: Performed By: #### Danielle CORNEJO, CMP #### [facility] [address] [place] [address] Jesi Rachna Anion gap [Moles/Vol] 15.1 mmol/L Normal [facility] Comment on above: Performed By: #### Danielle CORNEJO, CMP #### [facility] [address] [place] [address] Jesi Rachna AST [Catalytic activity/Vol] 26 U/L Normal 14-36 [facility] Comment on above: Performed By: #### Danielle CORNEJO, CMP #### [facility] [address] [place] [address] Jesi Rachna Bilirubin [Mass/Vol] 0.3 mg/dL Normal 0.2-1.3 [facility] Comment on above: Performed By: #### M YO, CMP #### [facility] [address] [place], [place] [address] Jesi Rachna Calcium [Mass/Vol] 9.4 mg/dL Normal 8.4-10.2 [facility] Comment on above: Performed By: #### M YO, CMP #### [facility] [address] [place], [place] [address] Jesi Rachna Chloride [Moles/Vol] 104 mmol/L Normal 98-107 [facility] Comment on above: Performed By: #### M YO, CMP #### [facility] [address] [id number] Jesi Rachna CO2 [Moles/Vol] 26.0 mmol/L Normal 22.0-30.[address] [facility] Comment on above: Performed By: #### M YO, CMP #### [facility] [address] [place] [address] Jesi Rachna Creatinine [Mass/Vol] 1.21 mg/dL Critically high 0.52-1.04 [facility] Comment on above: Performed By: #### M YO, CMP #### [facility] [address] [place] [address] Jesi Rachna EGFR-AF [place] 54 mL/min/1.73m2 Critically low >=60 [facility] Comment on above: Performed By: #### M YO, CMP #### [facility] [address] [place] [address] Jesi Rachna EGFR-NON AF [place] 44 mL/min/1.73m2 Critically low >=60 [facility] Comment on above: Performed By: #### M YO, CMP #### [facility] [address] [place], [place] [address] Jesi Rachna Globulin (S) [Mass/Vol] 3.9 g/dL Normal [facility] Comment on above: Performed By: #### M YO, CMP #### [facility] [address] [place] [address] Jesi Rachna Glucose [Mass/Vol] 138 mg/dL Critically high 74-106 [facility] Comment on above: Performed By: #### M YO, CMP #### [facility] [address] [place], [place] [address] Jesi Rachna Potassium [Moles/Vol] 4.1 mmol/L Normal 3.4-5.0 [facility] Comment on above: Performed By: #### M YO, CMP #### [facility] [address] [place] [address] Jesi Rachna Protein [Mass/Vol] 7.6 g/dL Normal 6.1-8.2 [facility] Comment on above: Performed By: #### M YO, CMP #### [facility] [address] [id number] Jesi Rachna Sodium [Moles/Vol] 141 mmol/L Normal 137-145 [facility] Comment on above: Performed By: #### M YO, CMP #### [facility] [address] [place], [place] [address] Jesi Rachna Urea nitrogen [Mass/Vol] 19.0 mg/dL Critically high 7.0-17.0 [facility] Comment on above: Performed By: #### M YO, CMP #### [facility] [address] [id number] Jesi Rachna Urea nitrogen/Creatinine [Mass ratio] 15.7 mg/mg Normal [facility] Comment on above: Performed By: #### M YO, CMP #### [facility] [address] [id number] Jesi Rachna SED RATE [facility] 2020 SED RATE 66 mm/hr Critically high <=30 [facility] Comment on above: Performed By: #### M YO, CMP #### [facility] [address] [place] [address] Jesi Rachna Vital Signs Date Time Vital Sign Value Performing Clinician Facility 11-29-2023 13:43-0400 Body height 160.02 cm [facility] 11-29-2023 13:43-0400 Body mass index (BMI) [Ratio] 20.9 kg/m2 [facility] 11-29-2023 13:43-0400 Body weight 53.52 kg [facility] 11-29-2023 13:43-0400 Diastolic blood pressure 81 mm[Hg] [facility] 11-29-2023 13:43-0400 Heart rate 109 /min [facility] 11-29-2023 13:43-0400 Systolic blood pressure 128 mm[Hg] [facility] 01-18-2023 13:00-0400 Body height 160.02 cm Crystal Jose Other [employer] Other 01-18-2023 13:00-0400 Body mass index (BMI) [Ratio] 20.72 kg/m2 Crystal Jose Other [employer] [facility] Other 01-18-2023 13:00-0400 Body weight 53.07 kg Crystal Jose Other [employer] Other 01-18-2023 13:00-0400 Diastolic blood pressure 84 mm[Hg] Crystal Jose Other [employer] Other 01-18-2023 13:00-0400 Systolic blood pressure 134 mm[Hg] Crystal Jose Other [employer] Other Encounters Encounter Date Encounter Type Care Provider Facility Start: 11-29-2023 End: 11-29-2023 ambulatory [facility] Work Phone: Start: 11-29-2023 End: 11-29-2023 Patient encounter procedure [facility] Work Phone: Start: 01-30-2023 End: 01-30-2023 ambulatory Crystal Jose Other [employer] Other Start: 01-30-2023 Telephone encounter Crystal Jose [facility] Start: 01-19-2023 End: 01-19-2023 ambulatory Crystal Jose Other [employer] Other Start: 01-19-2023 Telephone encounter Crystal Jose [facility] Start: 01-18-2023 End: 01-18-2023 ambulatory Crystal Jose Other [employer] Other Start: 01-18-2023 Office outpatient ne w 30 minutes Crystal Jose [facility] Start: 01-25-2022 End: 01-26-[address] [place] Facility:[facility] Start: 11-29-2021 End: 11-30-[address] [place] Facility:[facility] Start: 03-03-2021 End: 03-04-[address] [place] Facility:[facility] Start: 01-31-2021 End: 02-01-[address] [place] Facility:[facility] Plan of Treatment Date Care Activity Detail Author DXA Skeletal system. axial Views for bone density [facility] enter XR Lumbar spine 2 or 3 Views [facility] Payers Date Payer Category Payer Medicare [id number] 1957 Unknown [id number] 1950 Unknown [id number] [id number] [id number] 1950 Unknown [id number] [id number] [id number] 1950 Unknown [id number] [id number] [id number] 1950 Unknown [id number] [id number] [id number] Unknown [place] [facility] [place] [id number] Social History Date Type Detail Facility Unknown if ever smoked [employer] Other Sex Assigned At Sex Assigned At Bir th [employer] Other Start: 11-29-2023 Tobacco smoking status NHIS Never smoked tobacco (finding) [facility] Start: 1950 Sex Assigned At Female [facility] Evaluation note 01-18-2023 Note Date & Type Note Facility 01-18-2023 Evaluation note Encounter Date Diagnosis Assessment Notes Jan, Piriformis syndrome of right side (ICD-10 - G57.01) Order for PT given to pt. Consider repeat xray, Neurosurgery referral. Requests short term rx of pain med. 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 [place] [employer] Other Evaluation note Note Date & Type Note Facility Evaluation note No Information [facility] Other Evaluation note Note Date & Type Note Facility Evaluation note Diagnosis Onset Date Bilateral sacroiliitis acute Hyperglycemia acute Low vitamin D level acute Medicare annual wellness visit, subsequent acute Osteopenia acute Osteoporosis acute [facility] Work Phone: History general Narrative - Reported Note Date & Type Note Facility History general Narrative - Reported Type Medical History osteoporosis [facility] [employer] Other Summary Purpose Family History Relationship Condition Age at Onset Recorded Date/T toma father Unknown Advance Directives Advance Directive Response Recorded Date/ Time Advance Directives No November 28 1:25pm Chief Complaint and Reason for Visit Chief Complaint pysical Reason for Visit Bilateral sacroiliit is Hyperglycemia Low vitamin D level Medicare annual wellness visit, subsequent Osteopenia Osteoporosis Additional Source Comments INFORMATION SOURCE (unrecogn ized section and content) DATE CREATED AUTHOR 01/28/2022 [facility] REASON FOR VISIT (unrecogniz ed section and content) Prescription?Check [facility] x[facility] Care Teams (unrecognized sec tion and content) Team Status: Active Member Role Status Dates Crystal Jose MD Primary Care Provider Active Team Status: Inactive Member Role Status Dates Crystal Jose MD Primary Care Provide r, Attending Provider Active Start: November 29, 2023 End: November 29, 2023 Goals (unrecognized section and content) Goals may be documented in a n alternate section FOR RECORDS PERTAINING TO PATIENTS WHO ARE OR HAVE BEEN ENROLLED IN A CHEMICAL DEPENDENCY/SUBSTANCEABUSE PROGRAM, SOME INFORMATION MAY BE OMITTED. This clinical summary was aggregated from multiple sources. Caution should be exercised in using it in the provision of clinical care. This summary normalizes information from multiple sources, and as a consequence, information in this document may materially change the coding, format and clinical context of patient data. In addition, data may be omitted in some cases. CLINICAL DECISIONS SHOULD BE BASED ON THE PRIMARY CLINICAL RECORDS. [employer] provides no warranty or guarantee of the accuracy or completeness of information in this document.
--- NOTE | 2023-12-27 11:12 | P.CN_ITS ---
Consult Note: HPI Data of Consult Patient: new to practice Requesting Physician: Yue Ward NP Primary Care Provider: Crystal Jose MD Consult Narrative Reason for consult: establish chronic low back pain Narrative: Abby Carlin 73 year old female presents for evaluation of chronic low back pain. Patient has had low back pain greater than 5 years, but worsening to constant annoying pain as of june 2023. Patient has been engaged in provider guided HEP greater than 6 weeks with mild benefit. She has recent imaging which confirms facet arthropathy, lumbar DDD, and scoliosis. Patient reporting pain 3/10 increasing to 6/10 with strenuous activity and throughout the day. Pain constant 3/10 with no improvement with tylenol and ibuprofen. denies numbness tingling weakness. cc:: CC: Yue Ward NP Review of Systems 2 ROS0 Status of ROS 10 or more systems reviewed and unremark able except as noted in history and below Musculoskeletal Reports: back pain Exam Constitutional Documenting provider has reviewed patient's vital signs: yes Common normals: no apparent distress, oriented x3, healthy appearing, alert and well nourished General appearance: cooperative HENMT Common normals: normocephalic, hearing grossly normal bilaterally and moist oral mucous membranes Head and scalp: normocephalic Eye Common normals: PERRL Pupil: PERRL Neck & C-Spine Common normals: full ROM General: normal visual inspection Chest Common normals: inspection of chest normal Respiratory Common normals: normal respiratory effort, no retractions and no use of accessory muscles Back & Pelvis Lumbar spine/lower back: ROM limited, pain with ROM, lumbar scoliosis present and straight leg raise negative bilaterally Other: bilateral positive facet loading at L4-S1 no radiculopathy strength 5/5 in BLE sensation intact BLE negative bilateral galo(patricks), gaenslens, thigh thrust, compression test intermittent pain over right buttocks as noted above, unable to produce on exam with internal and external log roll and above listed exam techniques as well as deep palpation. Back image (female): 2 1. constant pain 2. intermittent pain, unable to produce on exam Extremity Common normals: normal to inspection and full ROM Neuro Common normals: oriented x3, CN's II-XII intact bilaterally, moves all extremities, no focal motor deficits, no sensory deficits noted and deep tendon reflexes 2+ bilaterally Sensorium/orientation: alert Motor exam: strength 5/5 throughout and no movement abnormalities noted Psych Common normals: mental status grossly normal, thought process normal, cooperative, affect normal, speech normal and activity/motor behavior normal Speech: normal speech Thought process: normal thought process Results Additional Findings Additional findings: If on a controlled substance or opioids, I have checked an [place] report on this patient and there are no aberrancies noted in the prescribing history.??If on a controlled substance or opioid a drug screen was completed and reviewed within the last year, and if there has not been a drug screen completed we ordered one today to monitor higher risk, state monitored pain medication use. As part of providing excellent, safe, comprehensive care, the following was completed at our patient's visit: 1. A medication reconciliation and review to ensure accurate knowledge of current/active medications, including asking our patients to inform us about any [id number] medications or herbal remedies/nutritional supplements/alternative remedies. 2. A review to specifically ensure our patients have had annual screening for screening for depression, screening for tobacco use, and screening for unhealthy alcohol use. For concerning screenings had a discussion with the patient, provided patient education, and recommended follow-up with primary care provider when appropriate. If patient noted with a risk of falling, they received education on strength, gait, and balance training to prevent future risk of falling. Assessment and Plan Assessment and Plan (1) Lumbar spondylosis: Assessment and Plan: The patient has had over 3 months of moderate to severe low back pain with functional impairment and inadequate response to conservative care including NSAIDS (unless there are contraindication such as concurrent blood thinners), multiple oral or topical pain medications, and home exercise program/physical therapy.? Patient has completed >6 weeks of guided home exercise program and/or formal physical therapy program without relief of their symptoms.? I have reviewed the imaging of the lumbar spine and no red flags were identified.? The imaging reveals radiographic findings consistent with lumbar spondylosis and lumbar facet arthropathy We discussed the risks and benefits of the procedure with the patient, and we are NOT planning on using sedation as outlined in the guidelines from Medicare unless there is a documented reason that sedation would be strongly recommended.?? ?The procedure will be completed with fluoroscopy guidance.? (2) Chronic bilateral low back pain: (3) Spasm of right piriformis muscle: Plan bilateral L4-5 L5-S1 facet medial branch block x2 working towards RFA continue HEP as tolerated continue current medications f/u after each injection
== END 2023-12-27 10:21 | disposition home or self-care (01) ==
LOC: PM 10:21
PROVIDERS: PCP Family Medicine; Visit Provider Nurse Practitioner
DX: M47.816 Spondylosis without myelopathy or radiculopathy, lumbar region (principal); M54.50 Low back pain, unspecified; M62.838 Other muscle spasm
CPT/HCPCS: G0463

== ENCOUNTER 2024-01-07 11:14 | Day surgery (SDC) | payer MEDICARE, OTHER, SELFPAY ==
[2024-01-07 11:36] VITALS: BP 177/102; PULSE 83; TEMP 36.8; O2SAT 100
[2024-01-07 12:03] VITALS: BP 184/86; BP 191/90; PULSE 86; PULSE 93; O2SAT 96; O2SAT 97
[2024-01-07] MEDS: BUPIVACAINE HCL 0.25% PF 25 MG/10 ML VIAL INJ (12:04)
[2024-01-07] MEDS: LIDOCAINE HCL 2% 400 MG/20 ML MDV 15 ML INJ (12:04)
--- NOTE | 2024-01-07 12:07 | W.PM.PROCNOT ---
Date of procedure: 01/07/24 Pre-op diagnosis: Pain due to lumbar spondylosis without myelopathy Post-op diagnosis: same as pre-op Procedure: Procedure: Bilateral L4-5, L5-S1 medial branch block Medications: Bupivacaine 0.25% 6cc The patient was seen and examined in the preoperative holding area.? An informed consent was obtained and placed on the chart.? The patient was brought to the medical procedure unit and placed in the prone position.? A timeout was completed verifying correct patient, procedure site, positioning, plan, and special equipment.? Using aseptic technique, the needle was placed at left L4. Under direct fluoroscopic visualization a Quincke-tipped spinal needle was advanced to the junction of the superior articulating process with the transverse process at the designated medial branch segment.? Preceded by negative aspiration, the above-mentioned injectate was placed in 1 mL aliquots.? The procedure was repeated at left L5, S1.? The needle was removed and insertion site was covered. The same procedure, at the same levels, was completed on the right side. The patient was taken to the postprocedural recovery area and monitored for an appropriate length of time before found suitable for discharge in the company of a responsible adult. Anesthesia: Local Surgeon: Lia Marcum Pathology: none sent Condition: stable Disposition: no change
== END 2024-01-07 12:10 | disposition home or self-care (01) ==
LOC: SURGOUT 11:15
PROVIDERS: PCP Family Medicine; Visit Provider Anesthesiology
DX: M47.816 Spondylosis without myelopathy or radiculopathy, lumbar region (principal)
CPT/HCPCS: 64493; 64494; J0665

== ENCOUNTER 2024-01-14 12:33 | Outpatient (OUT) | payer MEDICARE, OTHER, SELFPAY ==
--- OUTSIDE RECORDS SUMMARY | 2024-01-14 12:49 | XMS_ITS | CCD ---
Author Organization [facility] Care Team Providers Care Range Feeder Name Role Phone HOUSE, DR PICKARD Admitting [...] (3 sources) methylPREDNISolone Drug Allergy bad reaction [facility] [employer] Other Medications Current Medications Medication Drug Class(es) [...] sources) Calcitonin Start: 11-28-2023 End: 11-29-2023 Calcitonin ([place]) Active 1 SPRAY intranasal (ALT) Daily November [...] ELLIOTT BECERRIL Date: 2022-01-26 06:54 Normal [facility] MG MAMM SCREEN 3D KING CADon 01-25-2022 MG MAMM SCREEN 3D KING CAD Patient: ABBY STAHL Exam Date: 01/25/2022 : 1950 Gender:F Ordering : DR MELLY OH D.O. Admission #: [id number] Family : Order #: [id number] CLICK HERE TO VIEW EXAM RADIOLOGY REPORT [...] Treatments None Family Cancers None LOCATION: [facility] BREAST COMPOSITION: Heterogeneously dense,which may obscure [...] Becerril M.D. on 01/25/2022 at 13:54 Normal [facility] CBC AUTO DIFFon 11-29-2021 BASO # 0.0 103/ul Normal 0.0-0.1 [facility] Comment on above: Performed By: #### C BC #### [facility] [address] [address] [address] Torri Gomez Basophils/100 WBC (Bld) 0.7 % Normal 0.2-2.0 [facility] Comment on above: Performed By: #### C BC #### [facility] [address] [place] [address] Dr. Torri Gomez EO # 0.1 103/ul Normal 0.0-0.7 [facility] Comment on above: Performed By: #### C BC #### [facility] [address] [place] [address] Dr. Torri Gomez Eosinophils/100 WBC (Bld) 2.4 % Normal 0.9-7.0 [facility] Comment on above: Performed By: #### C BC #### [facility] [address] [place] [address] Dr. Torri Gomez Erythrocyte distribution width (RBC) [Ratio] 11.7 % Normal 11.0-15.0 [facility] Comment on above: Performed By: #### C BC #### [facility] [address] [place] [address] Dr. Torri Gomez Hematocrit (Bld) [Volume fraction] 43.5 % Normal 36.0-48.0 [facility] Comment on above: Performed By: #### C BC #### [facility] [address] [place] [address] Dr. Torri Gomez Hemoglobin (Bld) [Mass/Vol] 14.2 g/dL Normal 12.0-16.0 [facility] Comment on above: Performed By: #### C BC #### [facility] [address] [place] [address] Dr. Torri Gomez IG # 0.01 10e3/ul Normal 0.00-0.03 [facility] Comment on above: Performed By: #### C BC #### [facility] [address] [place] [address] Dr. Torri Gomez IG % 0.2 % Normal 0.0-0.5 [facility] Comment on above: Performed By: #### C BC #### [facility] [address] [place] [address] Dr. Torri Gomez LYMPH # 1.5 103/ul Normal 1.2-3.8 [facility] Comment on above: Performed By: #### C BC #### [facility] [address] [place] [address] Dr. Torri Gomez Lymphocytes/100 WBC (Bld) 35.6 % Normal 20.5-60.0 [facility] Comment on above: Performed By: #### C BC #### [facility] [address] [place] [address] Dr. Torri Gomez MANUAL DIFF REQ NO Normal [facility] Comment on above: Performed By: #### C BC #### [facility] [address] [place] [address] Dr. Torri Gomez MCH (RBC) [Entitic mass] 32.3 pg Normal 26.7-34.0 [facility] Comment on above: Performed By: #### C BC #### [facility] [address] [place] [address] Dr. Torri Gomez MCHC (RBC) [Mass/Vol] 32.6 g/dL Normal 29.9-35.2 [facility] Comment on above: Performed By: #### C BC #### [facility] [address] [place] [address] Dr. Torri Gomez MCV (RBC) [Entitic vol] 98.9 fL Normal 81.0-99.0 [facility] Comment on above: Performed By: #### C BC #### [facility] [address] [place] [address] Dr. Torri Gomez MONO # 0.4 103/ul Normal 0.3-0.8 [facility] Comment on above: Performed By: #### C BC #### [facility] [address] [place] [address] Dr. Torri Gomez Monocytes/100 WBC (Bld) 9.8 % Normal 1.7-12.0 [facility] Comment on above: Performed By: #### C BC #### [facility] [address] [place] [address] Dr. Torri Gomez NEUT # 2.2 103/ul Normal 1.4-6.5 [facility] Comment on above: Performed By: #### C BC #### [facility] [address] [place] [address] Dr. Torri Gomze Neutrophils/100 WBC (Bld) 51.3 % Normal 43.0-75.0 [facility] Comment on above: Performed By: #### C BC #### [facility] [address] [place] [address] Dr. Torri Gomez Platelet mean volume (Bld) [Entitic vol] 10.4 fL Normal 9.5-13.5 [facility] Comment on above: Performed By: #### C BC #### [facility] [address] [place] [address] Dr. Torri Gomez PLT 269 103/ul Normal 150-450 [facility] Comment on above: Performed By: #### C BC #### [facility] [address] [place] [address] Dr. Torri Gomez RBC 4.40 106/ul Normal 4.20-5.40 [facility] Comment on above: Performed By: #### C BC #### [facility] [address] [place] [address] Dr. Torri Gomez WBC 4.2 103/ul Normal 4.0-11.0 [facility] Comment on above: Performed By: #### C BC #### [facility] [address] [place] [address] Dr. Torri Gomez GLYCOHEMOGLOBIN A1Con 2021 ADA RECOMMENDATION SEE BELOW Normal [facility] Comment on above: Result Comment: ADA RECOMMENDED LIMIT 4.0 - 6.0 ADA THERAPEUTIC TARGET < 7.0 ACTION SUGGESTED > 7.0 Performed By: #### M CHANTAL, CMP #### [facility] [address] [place] [address] Jesi Briscoe Glucose [Mass/Vol] 120 mg/dL Normal [facility] Comment on above: Performed By: #### M CHANTAL, CMP #### [facility] [address] [place] [address] Jeis Briscoe HbA1c (Bld) [Mass fraction] 5.8 % Normal 4.5-6.2 [facility] Comment on above: Performed By: #### M CHANTAL, CMP #### [facility] [address] [place] [address] Jesi Briscoe LIPID PROFILEon 11-29-2021 CHOL-HDL RATIO NORM SEE BELOW Normal [facility] Comment on above: Result Comment: 3.3 - 4.4 LOW RISK 4.4 - 7.1 AVERAGE RISK 7.1 - 11.0 MODERATE RISK >11.0 HIGH RISK Performed By: #### T 4, LIPID, TSH, CMP #### [facility] [address] [address] [address] Torri Gomez Cholesterol [Mass/Vol] 198 mg/dL Normal <=200 [facility] Comment on above: Performed By: #### T 4, LIPID, TSH, CMP #### [facility] [address] [address] [address] Torri Gomez Cholesterol in HDL [Mass/Vol] 79 mg/dL Critically high 40-60 [facility] Comment on above: Performed By: #### T 4, LIPID, TSH, CMP #### [facility] [address] [address] [address] Torri Gomez Cholesterol in LDL [Mass/Vol] 101.0 mg/dL Normal [facility] Comment on above: Performed By: #### T 4, LIPID, TSH, CMP #### [facility] [address] [address] [address] Torri Gomez Cholesterol.total/Cho lesterol in HDL [Mass ratio] 2.5 {ratio} Normal [facility] Comment on above: Performed By: #### T 4, LIPID, TSH, CMP #### [facility] [address] [address] [address] Torri Gomez HDL NORMAL > or = 60 mg/dl - LO W CARDIOVASCULAR RISK <40 mg/dl - HIGH CARDIOVASCULAR RISK Normal [facility] Comment on above: Performed By: #### T 4, LIPID, TSH, CMP #### [facility] [address] [place] [address] Dr. Torri Gomez LDL CALC NORMAL SEE BELOW Normal [facility] Comment on above: Result Comment: <100 mg/dl OPTIMAL 100 - 129 mg/dl NEAR OR ABOVE OPTIMAL 130 - 159 mg/dl BORDERLINE HIGH 160 - 189 mg/dl HIGH >190 mg/dl VERY HIGH Performed By: #### T 4, LIPID, TSH, CMP #### [facility] [address] [place] [address] Dr. Torri Gomez Triglyceride [Mass/Vol] 90 mg/dL Normal <=150 [facility] Comment on above: Performed By: #### T 4, LIPID, TSH, CMP #### [facility] [address] [place] [address] Dr. Torri Gomez VLDL CALC 18.0 mg/dL Normal [facility] Comment on above: Performed By: #### T 4, LIPID, TSH, CMP #### [facility] [address] [place] [address] Dr. Torri Gomez PROF 14(COMP METB)on 022 Albumin [Mass/Vol] 4.1 g/dL Normal 3.4-5.0 [facility] Comment on above: Performed By: #### T 4, LIPID, TSH, CMP #### [facility] [address] [place] [address] Dr. Torri Gomez Albumin/Globulin [Mass ratio] 1.2 {ratio} Normal [facility] Comment on above: Performed By: #### T 4, LIPID, TSH, CMP #### [facility] [address] [place] [address] Dr. Torri Gomez ALP [Catalytic activity/Vol] 88 U/L Normal 46-116 [facility] Comment on above: Performed By: #### T 4, LIPID, TSH, CMP #### [facility] [address] [place] [address] Dr. Torri Gomez ALT [Catalytic activity/Vol] 22 U/L Normal 14-59 [facility] Comment on above: Performed By: #### T 4, LIPID, TSH, CMP #### [facility] [address] [place] [address] Dr. Torri Gomez Anion gap [Moles/Vol] 13.6 mmol/L Normal [facility] Comment on above: Performed By: #### T 4, LIPID, TSH, CMP #### [facility] [address] [place] [address] Dr. Torri Gomez AST [Catalytic activity/Vol] 18 U/L Normal 15-37 [facility] Comment on above: Performed By: #### T 4, LIPID, TSH, CMP #### [facility] [address] [place] [address] Dr. Torri Gomez Bilirubin [Mass/Vol] 0.5 mg/dL Normal 0.2-1.0 [facility] Comment on above: Performed By: #### T 4, LIPID, TSH, CMP #### [facility] [address] [place] [address] Dr. Torri Gomez Calcium [Mass/Vol] 9.1 mg/dL Normal 8.5-10.1 [facility] Comment on above: Performed By: #### T 4, LIPID, TSH, CMP #### [facility] [address] [place] [address] Dr. Torri Gomez Chloride [Moles/Vol] 104 mmol/L Normal 98-107 [facility] Comment on above: Performed By: #### T 4, LIPID, TSH, CMP #### [facility] [address] [place] [address] Dr. Torri Gomez CO2 [Moles/Vol] 26.8 mmol/L Normal 21.0-32.0 [facility] Comment on above: Performed By: #### T 4, LIPID, TSH, CMP #### [facility] [address] [place] [address] Dr. Torri Gomez Creatinine [Mass/Vol] 1.06 mg/dL Critically high 0.55-1.02 [facility] Comment on above: Performed By: #### T 4, LIPID, TSH, CMP #### [facility] [address] [place] [address] Dr. Torri Gomez EGFR-AF ITALIAN >60 Normal >=60 [facility] Comment on above: Performed By: #### T 4, LIPID, TSH, CMP #### [facility] [address] [place] [address] Dr. Torri Gomez EGFR-NON AF ITALIAN 51 mL/min/1.73m2 Critically low >=60 [facility] Comment on above: Performed By: #### T 4, LIPID, TSH, CMP #### [facility] [address] [place] [address] Dr. Torri Gomez Globulin (S) [Mass/Vol] 3.4 g/dL Normal [facility] Comment on above: Performed By: #### T 4, LIPID, TSH, CMP #### [facility] [address] [place] [address] Dr. Torri Gomez Glucose [Mass/Vol] 93 mg/dL Normal 74-106 [facility] Comment on above: Performed By: #### T 4, LIPID, TSH, CMP #### [facility] [address] [place] [address] Dr. Torri Gomez Potassium [Moles/Vol] 4.4 mmol/L Normal 3.5-5.1 [facility] Comment on above: Performed By: #### T 4, LIPID, TSH, CMP #### [facility] [address] [place] [address] Dr. Torri Gomez Protein [Mass/Vol] 7.5 g/dL Normal 6.4-8.2 [facility] Comment on above: Performed By: #### T 4, LIPID, TSH, CMP #### [facility] [address] [place] [address] Dr. Torri Gmoez Sodium [Moles/Vol] 140 mmol/L Normal 136-145 [facility] Comment on above: Performed By: #### T 4, LIPID, TSH, CMP #### [facility] [address] [place] [address] Dr. Torri Gomez Urea nitrogen [Mass/Vol] 21.0 mg/dL Critically high 7.0-18.0 [facility] Comment on above: Performed By: #### T 4, LIPID, TSH, CMP #### [facility] [address] [place] [address] Dr. Torri Gomez Urea nitrogen/Creatinine [Mass ratio] 19.8 mg/mg Normal [facility] Comment on above: Performed By: #### T 4, LIPID, TSH, CMP #### [facility] [address] [place] [address] Dr. Torri Gomez T4on 11-29-2021 T4 [Mass/Vol] 6.70 ug/dL Normal 4.80-13.90 [facility] Comment on above: Performed By: #### M CHANTAL, CMP #### [facility] [address] [place] [address] Jesi Lamaren TSHon 11-29-2021 TSH 2.359 uIU/mL Normal 0.358-3.740 [facility] Comment on above: Performed By: #### T 4, LIPID, TSH, CMP #### [facility] [address] [place] [address] Dr. Torri Gomez VITAMIN D 25 OHon 11-29-2021 VIT D 25-OH 70.8 ng/mL Normal [facility] Comment on above: Performed By: #### Danielle CORNEJO, CMP #### [facility] [address] [place] [address] Jesisanaz Briscoe VIT D RANGES SEE BELOW Normal [facility] Comment on above: Result Comment: <20 ng/mL Vit D deficient 20 - <30 ng/mL Vit D insufficient 30 - 100 ng/mL Vit D sufficient >100 ng/mL Potential Toxicity Performed By: #### Danielle CORNEJO, CMP #### [facility] [address] [place] [address] Jesi Lamaren PROF 14(COMP METB)on 021 Albumin [Mass/Vol] 4.0 g/dL Normal 3.5-5.0 [facility] Comment on above: Performed By: #### C MP #### [facility] [address] [place] [address] Dr. Torri Gomez Albumin/Globulin [Mass ratio] 1.2 {ratio} Normal [facility] Comment on above: Performed By: #### C MP #### [facility] [address] [place] [address] Dr. Torri Gomez ALP [Catalytic activity/Vol] 83 U/L Normal 38-126 [facility] Comment on above: Performed By: #### C MP #### [facility] [address] [place] [address] Dr. Torri Gomez ALT [Catalytic activity/Vol] 16 U/L Normal 9-52 [facility] Comment on above: Performed By: #### C MP #### [facility] [address] [address] [address] Torri Gomez Anion gap [Moles/Vol] 13.9 mmol/L Normal Th e [facility] Comment on above: Performed By: #### C MP #### [facility] [address] [address] [address] Torri Gomez AST [Catalytic activity/Vol] 28 U/L Normal 14-36 [facility] Comment on above: Performed By: #### C MP #### [facility] [address] [address] [address] Torri Gomez Bilirubin [Mass/Vol] 0.6 mg/dL Normal 0.2-1.3 [facility] Comment on above: Performed By: #### C MP #### [facility] [address] [address] [address] Torri Gomez Calcium [Mass/Vol] 9.1 mg/dL Normal 8.4-10.2 [facility] Comment on above: Performed By: #### C MP #### [facility] [address] [address] [address] Torri Gomez Chloride [Moles/Vol] 103 mmol/L Normal 98-107 [facility] Comment on above: Performed By: #### C MP #### [facility] [address] [address] [address] Torri Gomez CO2 [Moles/Vol] 25.1 mmol/L Normal 22.0-30.0 [facility] Comment on above: Performed By: #### C MP #### [facility] [address] [address] [address] Torri Gomez Creatinine [Mass/Vol] 1.07 mg/dL Critically high 0.52-1.04 [facility] Comment on above: Performed By: #### C MP #### [facility] [address] [address] [address] Torri Gomez EGFR-AF ITALIAN >60 Normal >=60 [facility] Comment on above: Performed By: #### C MP #### [facility] [address] [address] [address] Torri Gomez EGFR-NON AF ITALIAN 51 mL/min/1.73m2 Critically low >=60 [facility] Comment on above: Performed By: #### C MP #### [facility] [address] [address] [address] Torri Gomez Globulin (S) [Mass/Vol] 3.4 g/dL Normal [facility] Comment on above: Performed By: #### C MP #### [facility] [address] [address] [address] Torri Gomez Glucose [Mass/Vol] 131 mg/dL Critically high 74-106 [facility] Comment on above: Performed By: #### C MP #### [facility] [address] [address] [address] Torri Gomez Potassium [Moles/Vol] 5.0 mmol/L Normal 3.4-5.0 [facility] Comment on above: Performed By: #### C MP #### [facility] [address] [address] [address] Torri Gomez Protein [Mass/Vol] 7.4 g/dL Normal 6.1-8.2 [facility] Comment on above: Performed By: #### C MP #### [facility] [address] [address] [address] Torri Gomez Sodium [Moles/Vol] 137 mmol/L Normal 137-145 [facility] Comment on above: Performed By: #### C MP #### [facility] [address] [address] [address] Torri Gomez Urea nitrogen [Mass/Vol] 26.0 mg/dL Critically high 7.0-17.0 [facility] Comment on above: Performed By: #### C MP #### [facility] [address] [address] [address] Torri Gomez Urea nitrogen/Creatinine [Mass ratio] 24.3 mg/mg Normal [facility] Comment on above: Performed By: #### C MP #### [facility] [id number] Torri Gomez CBC AUTO DIFFon 01-31-2021 BASO # 0.0 103/ul Normal 0.0-0.1 [facility] Comment on above: Performed By: #### C BC #### [facility] [address] [place], [place] [id number] Jesi Rachna Basophils/100 WBC (Bld) 0.4 % Normal 0.2-2.0 [facility] Comment on above: Performed By: #### C BC #### [facility] [address] [place] [address] Jesi Rachna EO # 0.0 103/ul Normal 0.0-0.7 [facility] Comment on above: Performed By: #### C BC #### [facility] [address] [place] [address] Jesi Rachna Eosinophils/100 WBC (Bld) 0.6 % Critically low 0.9-7.0 [facility] Comment on above: Performed By: #### C BC #### [facility] [address] [place] [address] Jesi Rachna Erythrocyte distribution width (RBC) [Ratio] 11.9 % Normal 11.0-15.0 [facility] Comment on above: Performed By: #### C BC #### [facility] [address] [place] [address] Jesi Racnha Hematocrit (Bld) [Volume fraction] 38.5 % Normal 36.0-48.0 [facility] Comment on above: Performed By: #### C BC #### [facility] [address] [place] [address] Jesi Rachna Hemoglobin (Bld) [Mass/Vol] 12.1 g/dL Normal 12.0-16.0 [facility] Comment on above: Performed By: #### C BC #### [facility] [address] [place] [address] Jesi Rachna IG # 0.01 10e3/ul Normal 0.00-0.03 [facility] Comment on above: Performed By: #### C BC #### [facility] [address] [id number] Jesi Rachna IG % 0.1 % Normal 0.0-0.5 [facility] Comment on above: Performed By: #### C BC #### [facility] [address] [place], [place] [id number] Jesi Rachna LYMPH # 1.7 103/ul Normal 1.2-3.8 [facility] Comment on above: Performed By: #### C BC #### [facility] [address] [place], [place] [phone] Jesi Rachna Lymphocytes/100 WBC (Bld) 26.1 % Normal 20.5-60.0 [facility] Comment on above: Performed By: #### C BC #### [facility] [address] [place], [place] [phone] Jesi Rachna MANUAL DIFF REQ NO Normal [facility] Comment on above: Performed By: #### C BC #### [facility] [address] [place] [address] Jesi Rachna MCH (RBC) [Entitic mass] 31.8 pg Normal 26.7-34.0 [facility] Comment on above: Performed By: #### C BC #### [facility] [address] [place] [address] Jesi Rachna MCHC (RBC) [Mass/Vol] 31.4 g/dL Normal 29.9-35.2 [facility] Comment on above: Performed By: #### C BC #### [facility] [address] [place] [address] Jesi Rachna MCV (RBC) [Entitic vol] 101.0 fL Critically high 81.0-99.0 [facility] Comment on above: Performed By: #### C BC #### [facility] [address] [place] [address] Jesi Rachna MONO # 0.4 103/ul Normal 0.3-0.8 [facility] Comment on above: Performed By: #### C BC #### [facility] [address] [place], [place] [phone] Jesi Rachna Monocytes/100 WBC (Bld) 5.2 % Normal 1.7-12.0 [facility] Comment on above: Performed By: #### C BC #### [facility] [address] [place] [address] Jesi Briscoe NEUT # 4.5 103/ul Normal 1.4-6.5 [facility] Comment on above: Performed By: #### C BC #### [facility] [address] [place] [address] Jesi Briscoe Neutrophils/100 WBC (Bld) 67.6 % Normal 43.0-75.0 [facility] Comment on above: Performed By: #### C BC #### [facility] [address] [place], [place] [id number] Jesi Briscoe Platelet mean volume (Bld) [Entitic vol] 10.3 fL Normal 9.5-13.5 [facility] Comment on above: Performed By: #### C BC #### [facility] [address] [place] [address] Jesisanaz Briscoe PLT 329 103/ul Normal 150-450 [facility] Comment on above: Performed By: #### C BC #### [facility] [address] [place], [place] [id number] Jesi Briscoe RBC 3.81 106/ul Critically low 4.20-5.40 [facility] Comment on above: Performed By: #### C BC #### [facility] [address] [place] [address] Jesisanaz Briscoe WBC 6.7 103/ul Normal 4.0-11.0 [facility] Comment on above: Performed By: #### C BC #### [facility] [address] [place], [place] [id number] Jesi Briscoe MYOGLOBINon 01-31-2021 JIMBO 44.0 ng/mL Normal <=61.5 [facility] Comment on above: Performed By: #### M YO, CMP #### [facility] [address] [place] [address] Jesi Rachna PROF 14(COMP METB)on 08-30-2 021 Albumin [Mass/Vol] 3.7 g/dL Normal 3.5-5.0 [facility] Comment on above: Performed By: #### Danielle CORNEJO, CMP #### [facility] [address] [place], [place] [id number] Jesi Rachna Albumin/Globulin [Mass ratio] 0.9 {ratio} Normal [facility] Comment on above: Performed By: #### M CHANTAL, CMP #### [facility] [address] [id number] Jesi Rachna ALP [Catalytic activity/Vol] 81 U/L Normal 38-126 [facility] Comment on above: Performed By: #### Danielle CORNEJO, CMP #### [facility] [address] [place] [address] Jesi Rachna ALT [Catalytic activity/Vol] 17 U/L Normal 9-52 [facility] Comment on above: Performed By: #### Danielle CORNEJO, CMP #### [facility] [address] [place] [address] Jesi Rachna Anion gap [Moles/Vol] 15.1 mmol/L Normal [facility] Comment on above: Performed By: #### Danielle CORNEJO, CMP #### [facility] [address] [place] [address] Jesi Rachna AST [Catalytic activity/Vol] 26 U/L Normal 14-36 [facility] Comment on above: Performed By: #### Danielle CORNEJO, CMP #### [facility] [address] [place] [address] Jesi Rachna Bilirubin [Mass/Vol] 0.3 mg/dL Normal 0.2-1.3 [facility] Comment on above: Performed By: #### M YO, CMP #### [facility] [address] [place], [place] [phone] Jesi Rachna Calcium [Mass/Vol] 9.4 mg/dL Normal 8.4-10.2 [facility] Comment on above: Performed By: #### M YO, CMP #### [facility] [address] [place], [place] [phone] Jesi Rachna Chloride [Moles/Vol] 104 mmol/L Normal 98-107 [facility] Comment on above: Performed By: #### M YO, CMP #### [facility] [address] [id number] Jesi Rachna CO2 [Moles/Vol] 26.0 mmol/L Normal 22.0-30.0 [facility] Comment on above: Performed By: #### M YO, CMP #### [facility] [address] [place] [address] Jesi Rachna Creatinine [Mass/Vol] 1.21 mg/dL Critically high 0.52-1.04 [facility] Comment on above: Performed By: #### M YO, CMP #### [facility] [address] [place] [address] Jesi Rachna EGFR-AF ITALIAN 54 mL/min/1.73m2 Critically low >=60 [facility] Comment on above: Performed By: #### M YO, CMP #### [facility] [address] [place] [address] Jesi Rachna EGFR-NON AF ITALIAN 44 mL/min/1.73m2 Critically low >=60 [facility] Comment on above: Performed By: #### M YO, CMP #### [facility] [address] [place], [place] [phone] Jesi Rachna Globulin (S) [Mass/Vol] 3.9 g/dL Normal [facility] Comment on above: Performed By: #### M YO, CMP #### [facility] [address] [place] [address] Jesi Rachna Glucose [Mass/Vol] 138 mg/dL Critically high 74-106 [facility] Comment on above: Performed By: #### M YO, CMP #### [facility] [address] [place], [place] [phone] Jesi Rachna Potassium [Moles/Vol] 4.1 mmol/L Normal 3.4-5.0 [facility] Comment on above: Performed By: #### M YO, CMP #### [facility] [address] [place] [address] Jesi Rachna Protein [Mass/Vol] 7.6 g/dL Normal 6.1-8.2 [facility] Comment on above: Performed By: #### M YO, CMP #### [facility] [address] [id number] Jesi Rachna Sodium [Moles/Vol] 141 mmol/L Normal 137-145 [facility] Comment on above: Performed By: #### M YO, CMP #### [facility] [address] [place], [place] [address] Jesi Rachna Urea nitrogen [Mass/Vol] 19.0 mg/dL Critically high 7.0-17.0 [facility] Comment on above: Performed By: #### M YO, CMP #### [facility] [address] [id number] Jesi Rachna Urea nitrogen/Creatinine [Mass ratio] 15.7 mg/mg Normal [facility] Comment on above: Performed By: #### M YO, CMP #### [facility] [address] [id number] Jesi Rachna SED RATE [facility] 2020 SED RATE 66 mm/hr Critically high <=30 [facility] Comment on above: Performed By: #### M YO, CMP #### [facility] [address] [place] [address] Jesi Rachna Vital Signs Date Time Vital Sign Value Performing Clinician Facility 11-29-2023 13:43-0400 Body height 160.02 cm [facility] 11-29-2023 13:43-0400 Body mass index (BMI) [Ratio] 20.9 kg/m2 [facility] 11-29-2023 13:43-0400 Body weight 53.52 kg [facility] 11-29-2023 13:43-0400 Diastolic blood pressure 81 mm[Hg] [facility] 11-29-2023 13:43-0400 Heart rate 109 /min [facility] 11-29-2023 13:43-0400 Systolic blood pressure 128 mm[Hg] [facility] 01-18-2023 13:00-0400 Body height 160.02 cm Crystal Jose Other [facility] Other 01-18-2023 13:00-0400 Body mass index (BMI) [Ratio] 20.72 kg/m2 Crystal Jose Other [facility] Other 01-18-2023 13:00-0400 Body weight 53.07 kg Crystal Jose Other [facility] Other 01-18-2023 13:00-0400 Diastolic blood pressure 84 mm[Hg] Crystal Jose Other [facility] Other 01-18-2023 13:00-0400 Systolic blood pressure 134 mm[Hg] Crystal Jose Other [employer] Other Encounters Encounter Date Encounter Type Care Provider Facility Start: 11-29-2023 End: 11-29-2023 ambulatory [facility] Work Phone: Start: 11-29-2023 End: 11-29-2023 Patient encounter procedure [facility] Work Phone: Start: 01-30-2023 End: 01-30-2023 ambulatory Crystal Jose Other [facility] Other Start: 01-30-2023 Telephone encounter Crystal Jose [facility] Start: 01-19-2023 End: 01-19-2023 ambulatory Crystal Jose Other [facility] Other Start: 01-19-2023 Telephone encounter Crystal Jose [facility] Start: 01-18-2023 End: 01-18-2023 ambulatory Crystal Jose Other [facility] Other Start: 01-18-2023 Office outpatient ne w 30 minutes Crystal Jose [facility] Start: 01-25-2022 End: 01-26-[address] [place] Facility:[facility] Start: 11-29-2021 End: 11-30-[address] [place] Facility:[facility] Start: 03-03-2021 End: 03-04-[address] [place] Facility:[facility] Start: 01-31-2021 End: 02-01-[address] [place] Facility:[facility] Plan of Treatment Date Care Activity Detail Author DXA Skeletal system. axial Views for bone density [facility] enter XR Lumbar spine 2 or 3 Views [facility] Payers Date Payer Category Payer Medicare [id number] 1957 Unknown [id number] 1950 Unknown [id number] 2.16.84 [id number] 1950 Unknown [id number] 2.16.84 [id number] 1950 Unknown [id number] 2.16.84 [id number] 1950 Unknown [id number] [id number] [id number] Unknown [place] [id number] Social History Date Type Detail Facility Unknown if ever smoked [employer] Other Sex Assigned At Sex Assigned At Bir th [employer] Other Start: 11-29-2023 Tobacco smoking status NHIS Never smoked tobacco (finding) [facility] Start: 1950 Sex Assigned At Female F [facility] Evaluation note 01-18-2023 Note Date & Type Note Facility 01-18-2023 Evaluation note Encounter Date Diagnosis Assessment Notes Jan, Piriformis syndrome of right side (ICD-10 - G57.01) Order for PT given to pt. Consider repeat xray, Neurosurgery referral. Requests short term rx of pain med. 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 [employer] Other Evaluation note Note Date & Type Note Facility Evaluation note No Information [facility] [employer] Other Evaluation note Note Date & Type Note Facility Evaluation note Diagnosis Onset Date Bilateral sacroiliitis acute Hyperglycemia acute Low vitamin D level acute Medicare annual wellness visit, subsequent acute Osteopenia acute Osteoporosis acute [facility] Work Phone: History general Narrative - Reported Note Date & Type Note Facility History general Narrative - Reported Type Medical History osteoporosis [facility] [employer] Other Summary Purpose Family History Relationship Condition [...] and content) DATE CREATED AUTHOR 01/28/2022 [facility] REASON FOR VISIT (unrecogniz ed [...] BE BASED ON THE PRIMARY CLINICAL RECORDS. [employer] provides no warranty or guarantee of the accuracy or completeness of information in this document.
--- NOTE | 2024-01-14 13:21 | P.CN_ITS ---
Consult Note: HPI Data of Consult Patient: known to practice within the last 3 years Consult date: 01/14/24 Requesting Physician: Lia Marcum MD Primary Care Provider: Crystal Jose MD Consult Narrative Reason for consult: low back pain Narrative: 73yof who presents for assessment. had significant relief of 100% after her recent bilateral l4-5, l5-s1 medial branch block. lasted >2 hours with subsequent return of pain to baseline. pain was 7 pre procedure, was 0 after procedure for >2 hours, and now back to baseline of 6-7. continues to engage in a series of provider directed home exercises >6 weeks, without lasting benefit. uses OTC pain meds as needed. denies adverse med side effects. cc:: CC: Lia Marcum MD Review of Systems ROS Status of ROS 10 or more systems reviewed and unremark able except as noted in history and below [facility] Medical History (Updated 12/27/23 @ 11:31 by Livia Page RN) Scoliosis ?M41.9 - Scoliosis, unspecified (ICD-10) Meds Home Medications and Allergies Home Medications ?Medication ?Instructions ?Recorded ?Confirmed ?Type wtdybmh-wxcdjhetujkwk-pybsawqm 250 1 tab PO Q6H PRN pain 12/27/23 01/07/24 History mg-250 mg-65 mg tablet (Excedrin Extra Strength) calcitonin (salmon) 200 1 spray intranasal DAILY 12/27/23 01/07/24 History unit/actuation nasal spray calcium 600 mg-D3 800 unit-mag11 1 tab PO DAILY 12/27/23 01/07/24 History 50 of-xrbx-bvguyf-rita-s.borat tablet (Caltrate 600-D Plus Minerals) doxycycline hyclate 50 mg capsule 50 mg PO Q24H 12/27/23 01/07/24 History ibuprofen 200 mg tablet (Advil) 200 mg PO Q8H PRN pain 12/27/23 01/07/24 History magnesium 250 mg tablet 250 mg PO DAILY 12/27/23 01/07/24 History metronidazole 0.75 % topical gel 1 applic topical DAILY 12/27/23 01/07/24 History raloxifene 60 mg tablet 60 mg PO DAILY 12/27/23 01/07/24 History Allergies Allergy/AdvReac Type Severity Reaction Status Date / Time methylprednisolone Allergy Unknown Verified 01/07/24 11:35 Exam Narrative Exam Narrative: Psych-alert and oriented x 3. Attentive and appropriate, constitutionally normal, displays normal mood and affect per situation.? There are no obvious deficits in memory, reasoning, or intellect.? Skin-no obvious rashes, bruising, erythema noted to the patient's area of pain. Extremities- extremities are warm with minimal edema and palpable pulses. Lumbar-no significant tenderness to palpation noted in the lumbar spine and paraspinal musculature.? Pain is elicited with extension, and lateral rotation of the lumbar spine. Range of motion is slightly diminished with these motions due to pain. Facet loading maneuvers are positive bilaterally and do appear to be concordant with the patient's normal complaints of pain.? Coordination remains intact.? Gait remains non-antalgic. Assessment and Plan Assessment and Plan (1) Lumbar spondylosis: Plan 73yof who presents for assessment. failed conservative measures, as noted. given significant response with first medial branch block, prudent to attempt diagnostic bilateral l4-5, l5-s1 medial branch block under fluoroscopic guidance with intention of proceeding to radiofrequency ablation. she is in agreement. meds reviewed, no changes. follow up after procedure.
== END 2024-01-14 12:34 | disposition home or self-care (01) ==
LOC: PM 12:34
PROVIDERS: PCP Family Medicine; Visit Provider Anesthesiology
DX: M47.816 Spondylosis without myelopathy or radiculopathy, lumbar region (principal)
CPT/HCPCS: G0463

== ENCOUNTER 2024-01-21 07:44 | Day surgery (SDC) | payer MEDICARE, OTHER, SELFPAY ==
--- OUTSIDE RECORDS SUMMARY | 2024-01-21 07:48 | XMS_ITS | CCD ---
Author Organization [facility] Care Team Providers Care Building Repair Maintenance Supervisor Name Role Phone HOUSE, DR PICKARD Admitting [...] PICKARD Primary Care Unavailable Crystal Jose Unavailable Jossue NEGRETE, Lia Bartlett Attending Unavailable Allergies Allergy Classification Reported Allergen(s) Allergy Type Date of Onset Reaction(s) Facility (3 sources) methylPREDNISolone Drug Allergy bad reaction [facility]is Other Medications Current Medications Medication Drug Class(es) [...] sources) Calcitonin Start: 11-28-2023 End: 11-29-2023 Calcitonin ([place]) Active 1 SPRAY intranasal (ALT) Daily November [...] ELLIOTT BECERRIL Date: 2022-01-26 06:[address] [facility] MG MAMM SCREEN 3D KING CADon 01-25-2022 MG MAMM SCREEN 3D KING CAD Patient: ABBY STAHL Exam Date: 01/25/2022 : 1950 Gender:F Ordering : DR MELLY OH D.O. Admission #: [id number] Family : Order #: [id number] CLICK HERE TO VIEW EXAM RADIOLOGY REPORT [...] Treatments None Family Cancers None LOCATION: [facility] BREAST COMPOSITION: Heterogeneously dense,which may obscure [...] Becerril M.D. on 01/25/2022 at 13:[address] [facility] CBC AUTO DIFFon 11-29-2021 BASO # 0.0 103/ul Normal 0.0-0.1 [facility] Comment on above: Performed By: #### C BC #### [facility] [address] [address] [address] Torri Gomez Basophils/100 WBC (Bld) 0.7 % Normal 0.2-2.0 [facility] Comment on above: Performed By: #### C BC #### [facility] [address] [place] [address] Dr. Torri Gomez EO # 0.1 103/ul Normal 0.0-0.[address] [facility] Comment on above: Performed By: #### C BC #### [facility] [address] [place] [address] Dr. Torri Gomez Eosinophils/100 WBC (Bld) 2.4 % Normal 0.9-7.[address] [facility] Comment on above: Performed By: #### C BC #### [facility] [address] [place] [address] Dr. Torri Gomez Erythrocyte distribution width (RBC) [Ratio] 11.7 % Normal 11.0-15.0 [facility] Comment on above: Performed By: #### C BC #### [facility] [address] [place] [address] Dr. Torri Gomez Hematocrit (Bld) [Volume fraction] 43.5 % Normal 36.0-48.0 [facility] Comment on above: Performed By: #### C BC #### [facility] [address] [place] [address] Dr. Torri Gomez Hemoglobin (Bld) [Mass/Vol] 14.2 g/dL Normal 12.0-16.0 [facility] Comment on above: Performed By: #### C BC #### [facility] [address] [place] [address] Dr. Torri Gomez IG # 0.01 10e3/ul Normal 0.00-0.03 [facility] Comment on above: Performed By: #### C BC #### [facility] [address] [place] [address] Dr. Torri Gomez IG % 0.2 % Normal 0.0-0.[address] [facility] Comment on above: Performed By: #### C BC #### [facility] [address] [place] [address] Dr. Torri Gomez LYMPH # 1.5 103/ul Normal 1.2-3.[address] [facility] Comment on above: Performed By: #### C BC #### [facility] [address] [place] [address] Dr. Torri Gomez Lymphocytes/100 WBC (Bld) 35.6 % Normal 20.5-60.[address] [facility] Comment on above: Performed By: #### C BC #### [facility] [address] [place] [address] Dr. Torri Gomez MANUAL DIFF REQ NO Normal [facility] Comment on above: Performed By: #### C BC #### [facility] [address] [place] [address] Dr. Torri Gomez MCH (RBC) [Entitic mass] 32.3 pg Normal 26.7-34.[address] [facility] Comment on above: Performed By: #### C BC #### [facility] [address] [place] [address] Dr. Torri Gomez MCHC (RBC) [Mass/Vol] 32.6 g/dL Normal 29.9-35.[address] [facility] Comment on above: Performed By: #### C BC #### [facility] [address] [place] [address] Dr. Torri Gomez MCV (RBC) [Entitic vol] 98.9 fL Normal 81.0-99.[address] [facility] Comment on above: Performed By: #### C BC #### [facility] [address] [place] [address] Dr. Torri Gomez MONO # 0.4 103/ul Normal 0.3-0.[address] [facility] Comment on above: Performed By: #### C BC #### [facility] [address] [place] [address] Dr. Torri Gomez Monocytes/100 WBC (Bld) 9.8 % Normal 1.7-12.[address] [facility] Comment on above: Performed By: #### C BC #### [facility] [address] [place] [address] Dr. Torri Gomez NEUT # 2.2 103/ul Normal 1.4-6.[address] [facility] Comment on above: Performed By: #### C BC #### [facility] [address] [place] [address] Dr. Torri Gomez Neutrophils/100 WBC (Bld) 51.3 % Normal 43.0-75.0 [facility] Comment on above: Performed By: #### C BC #### [facility] [address] [place] [address] Dr. Torri Gomez Platelet mean volume (Bld) [Entitic vol] 10.4 fL Normal 9.5-13.5 [facility] Comment on above: Performed By: #### C BC #### [facility] [address] [place] [address] Dr. Torri Gomez PLT 269 103/ul Normal 150-[address] [facility] Comment on above: Performed By: #### C BC #### [facility] [address] [place] [address] Dr. Torri Gomez RBC 4.40 106/ul Normal 4.20-5.40 [facility] Comment on above: Performed By: #### C BC #### [facility] [address] [place] [address] Dr. Torri Gomez WBC 4.2 103/ul Normal 4.0-11.0 [facility] Comment on above: Performed By: #### C BC #### [facility] [address] [place] [address] Dr. Torri Gomez GLYCOHEMOGLOBIN A1Con 2021 ADA RECOMMENDATION SEE BELOW Normal [facility] Comment on above: Result Comment: ADA RECOMMENDED LIMIT 4.0 - 6.0 ADA THERAPEUTIC TARGET < 7.0 ACTION SUGGESTED > 7.0 Performed By: #### Danielle CORNEJO, CMP #### [facility] [address] [place] [address] Jesi Rachna Glucose [Mass/Vol] 120 mg/dL Normal [facility] Comment on above: Performed By: #### Danielle CORNEJO, CMP #### [facility] [address] [place] [address] Jesi Rachna HbA1c (Bld) [Mass fraction] 5.8 % Normal 4.5-6.2 [facility] Comment on above: Performed By: #### Danielle CORNEJO, CMP #### [facility] [address] [address] Jesi Briscoe LIPID PROFILEon 11-29-2021 CHOL-HDL RATIO NORM SEE BELOW Normal [facility] Comment on above: Result Comment: 3.3 - 4.4 LOW RISK 4.4 - 7.1 AVERAGE RISK 7.1 - 11.0 MODERATE RISK >11.0 HIGH RISK Performed By: #### T 4, LIPID, TSH, CMP #### [facility] [address] [address] [address] Torri Gomez Cholesterol [Mass/Vol] 198 mg/dL Normal <=200 [facility] Comment on above: Performed By: #### T 4, LIPID, TSH, CMP #### [facility] [address] [place] [address] Dr. Torri Gomez Cholesterol in HDL [Mass/Vol] 79 mg/dL Critically high 40-60 [facility] Comment on above: Performed By: #### T 4, LIPID, TSH, CMP #### [facility] [address] [address] [address] Torri Gomez Cholesterol in LDL [Mass/Vol] 101.0 mg/dL Normal [facility] Comment on above: Performed By: #### T 4, LIPID, TSH, CMP #### [facility] [address] [address] [address] Torri Gomez Cholesterol.total/Cho lesterol in HDL [Mass ratio] 2.5 {ratio} Normal [facility] Comment on above: Performed By: #### T 4, LIPID, TSH, CMP #### [facility] [address] [address] [address] Torri Gomez HDL NORMAL > or = 60 mg/dl - LO W CARDIOVASCULAR RISK <40 mg/dl - HIGH CARDIOVASCULAR RISK Normal [facility] Comment on above: Performed By: #### T 4, LIPID, TSH, CMP #### [facility] [address] [place] [address] Dr. Torri Gomez LDL CALC NORMAL SEE BELOW Normal [facility] Comment on above: Result Comment: <100 mg/dl OPTIMAL 100 - 129 mg/dl NEAR OR ABOVE OPTIMAL 130 - 159 mg/dl BORDERLINE HIGH 160 - 189 mg/dl HIGH >190 mg/dl VERY HIGH Performed By: #### T 4, LIPID, TSH, CMP #### [facility] [address] [address] [address] Torri Gomez Triglyceride [Mass/Vol] 90 mg/dL Normal <=150 [facility] Comment on above: Performed By: #### T 4, LIPID, TSH, CMP #### [facility] [address] [address] [address] Torri Gomez VLDL CALC 18.0 mg/dL Normal [facility] Comment on above: Performed By: #### T 4, LIPID, TSH, CMP #### [facility] [address] [place] [address] Dr. Torri Gomez PROF 14(COMP METB)on 022 Albumin [Mass/Vol] 4.1 g/dL Normal 3.4-5.0 [facility] Comment on above: Performed By: #### T 4, LIPID, TSH, CMP #### [facility] [address] [place] [address] Dr. Torri Gomez Albumin/Globulin [Mass ratio] 1.2 {ratio} Normal [facility] Comment on above: Performed By: #### T 4, LIPID, TSH, CMP #### [facility] [address] [place] [address] Dr. Torri Gomez ALP [Catalytic activity/Vol] 88 U/L Normal 46-116 [facility] Comment on above: Performed By: #### T 4, LIPID, TSH, CMP #### [facility] [address] [place] [address] Dr. Torri Gomez ALT [Catalytic activity/Vol] 22 U/L Normal 14-59 [facility] Comment on above: Performed By: #### T 4, LIPID, TSH, CMP #### [facility] [address] [place] [address] Dr. Torri Gomez Anion gap [Moles/Vol] 13.6 mmol/L Normal [facility] Comment on above: Performed By: #### T 4, LIPID, TSH, CMP #### [facility] [address] [place] [address] Dr. Torri Gomez AST [Catalytic activity/Vol] 18 U/L Normal 15-37 [facility] Comment on above: Performed By: #### T 4, LIPID, TSH, CMP #### [facility] [address] [address] [address] Torri Gomez Bilirubin [Mass/Vol] 0.5 mg/dL Normal 0.2-1.0 [facility] Comment on above: Performed By: #### T 4, LIPID, TSH, CMP #### [facility] [address] [address] [address] Torri Gomez Calcium [Mass/Vol] 9.1 mg/dL Normal 8.5-10.1 [facility] Comment on above: Performed By: #### T 4, LIPID, TSH, CMP #### [facility] [address] [address] [address] Torri Gomez Chloride [Moles/Vol] 104 mmol/L Normal 98-[address] [facility] Comment on above: Performed By: #### T 4, LIPID, TSH, CMP #### [facility] [address] [address] [address] Torri Gomez CO2 [Moles/Vol] 26.8 mmol/L Normal 21.0-32.0 [facility] Comment on above: Performed By: #### T 4, LIPID, TSH, CMP #### [facility] [address] [address] [address] Torri Gomez Creatinine [Mass/Vol] 1.06 mg/dL Critically high 0.55-1.02 [facility] Comment on above: Performed By: #### T 4, LIPID, TSH, CMP #### [facility] [address] [address] [address] Torri Gomez EGFR-AF CUBAN >60 Normal >=[address] [facility] Comment on above: Performed By: #### T 4, LIPID, TSH, CMP #### [facility] [address] [address] [address] Torri Gomez EGFR-NON AF CUBAN 51 mL/min/1.73m2 Critically low >=60 [facility] Comment on above: Performed By: #### T 4, LIPID, TSH, CMP #### [facility] [address] [address] [address] Torri Gomez Globulin (S) [Mass/Vol] 3.4 g/dL Normal [facility] Comment on above: Performed By: #### T 4, LIPID, TSH, CMP #### [facility] [address] [address] [address] Torri Gomez Glucose [Mass/Vol] 93 mg/dL Normal 74-106 [facility] Comment on above: Performed By: #### T 4, LIPID, TSH, CMP #### [facility] [address] [address] [address] Torri Gomez Potassium [Moles/Vol] 4.4 mmol/L Normal 3.5-5.[address] [facility] Comment on above: Performed By: #### T 4, LIPID, TSH, CMP #### [facility] [address] [place] [address] Dr. Torri Gomez Protein [Mass/Vol] 7.5 g/dL Normal 6.4-8.2 [facility] Comment on above: Performed By: #### T 4, LIPID, TSH, CMP #### [facility] [address] [place] [address] Dr. Torri Gomez Sodium [Moles/Vol] 140 mmol/L Normal 136-145 [facility] Comment on above: Performed By: #### T 4, LIPID, TSH, CMP #### [facility] [address] [address] [address] Torri Gomez Urea nitrogen [Mass/Vol] 21.0 mg/dL Critically high 7.0-18.[address] [facility] Comment on above: Performed By: #### T 4, LIPID, TSH, CMP #### [facility] [address] [place] [address] Dr. Torri Gomez Urea nitrogen/Creatinine [Mass ratio] 19.8 mg/mg Normal [facility] Comment on above: Performed By: #### T 4, LIPID, TSH, CMP #### [facility] [address] [place] [address] Dr. Torri Gomez T4on 11-29-2021 T4 [Mass/Vol] 6.70 ug/dL Normal 4.80-13.90 [facility] Comment on above: Performed By: #### M CHANTAL, CMP #### [facility] [address] [place] [address] Jesisanaz Laamren TSHon 11-29-2021 TSH 2.359 uIU/mL Normal 0.358-3.740 [facility] Comment on above: Performed By: #### T 4, LIPID, TSH, CMP #### [facility] [address] [place] [address] Dr. Torri Gomez VITAMIN D 25 OHon 11-29-2021 VIT D 25-OH 70.8 ng/mL Normal [facility] Comment on above: Performed By: #### Danielle CORNEJO, CMP #### [facility] [address] [place] [address] Jesi Rachna VIT D RANGES SEE BELOW Normal [facility] Comment on above: Result Comment: <20 ng/mL Vit D deficient 20 - <30 ng/mL Vit D insufficient 30 - 100 ng/mL Vit D sufficient >100 ng/mL Potential Toxicity Performed By: #### Danielle CORNEJO, CMP #### [facility] [address] [place] [address] Jesi Briscoe PROF 14(COMP METB)on 021 Albumin [Mass/Vol] 4.0 g/dL Normal 3.5-5.0 [facility] Comment on above: Performed By: #### C MP #### [facility] [address] [place] [address] Dr. Torri Gomez Albumin/Globulin [Mass ratio] 1.2 {ratio} Normal [facility] Comment on above: Performed By: #### C MP #### [facility] [address] [place] [address] Dr. Torri Gomez ALP [Catalytic activity/Vol] 83 U/L Normal 38-126 [facility] Comment on above: Performed By: #### C MP #### [facility] [address] [place] [address] Dr. Torri Gomez ALT [Catalytic activity/Vol] 16 U/L Normal 9-52 [facility] Comment on above: Performed By: #### C MP #### [facility] [address] [address] [address] Torri Gomez Anion gap [Moles/Vol] 13.9 mmol/L Normal [facility] Comment on above: Performed By: #### C MP #### [facility] [address] [address] [address] Torri Gomez AST [Catalytic activity/Vol] 28 U/L Normal 14-36 [facility] Comment on above: Performed By: #### C MP #### [facility] [address] [address] [address] Torri Gomez Bilirubin [Mass/Vol] 0.6 mg/dL Normal 0.2-1.3 [facility] Comment on above: Performed By: #### C MP #### [facility] [address] [address] [address] Torri Gomez Calcium [Mass/Vol] 9.1 mg/dL Normal 8.4-10.2 [facility] Comment on above: Performed By: #### C MP #### [facility] [address] [address] [address] Torri Gomez Chloride [Moles/Vol] 103 mmol/L Normal 98-107 [facility] Comment on above: Performed By: #### C MP #### [facility] [address] [address] [address] Torri Gomez CO2 [Moles/Vol] 25.1 mmol/L Normal 22.0-30.[address] [facility] Comment on above: Performed By: #### C MP #### [facility] [address] [address] [address] Torri Gomez Creatinine [Mass/Vol] 1.07 mg/dL Critically high 0.52-1.04 [facility] Comment on above: Performed By: #### C MP #### [facility] [address] [address] [address] Torri Gomez EGFR-AF CUBAN >60 Normal >=60 [facility] Comment on above: Performed By: #### C MP #### [facility] [address] [address] [address] Torri Gomez EGFR-NON AF CUBAN 51 mL/min/1.73m2 Critically low >=60 [facility] Comment on above: Performed By: #### C MP #### [facility] [address] [address] [address] Torri Gomez Globulin (S) [Mass/Vol] 3.4 g/dL Normal [facility] Comment on above: Performed By: #### C MP #### [facility] [address] [address] [address] Torri Gomez Glucose [Mass/Vol] 131 mg/dL Critically high 74-106 [facility] Comment on above: Performed By: #### C MP #### [facility] [address] [address] [address] Torri Gomez Potassium [Moles/Vol] 5.0 mmol/L Normal 3.4-5.0 [facility] Comment on above: Performed By: #### C MP #### [facility] [address] [address] [address] Torri Gomez Protein [Mass/Vol] 7.4 g/dL Normal 6.1-8.2 [facility] Comment on above: Performed By: #### C MP #### [facility] [address] [address] [address] Torri Gomez Sodium [Moles/Vol] 137 mmol/L Normal 137-145 [facility] Comment on above: Performed By: #### C MP #### [facility] [address] [address] [address] Torri Gomez Urea nitrogen [Mass/Vol] 26.0 mg/dL Critically high 7.0-17.0 [facility] Comment on above: Performed By: #### C MP #### [facility] [address] [address] [address] Torri Gomez Urea nitrogen/Creatinine [Mass ratio] 24.3 mg/mg Normal [facility] Comment on above: Performed By: #### C MP #### [facility] [address] [place], [place] [address] Dr. Torri Gomez CBC AUTO DIFFon 01-31-2021 BASO # 0.0 103/ul Normal 0.0-0.1 [facility] Comment on above: Performed By: #### C BC #### [facility] [address] [id number] Jesi Rachna Basophils/100 WBC (Bld) 0.4 % Normal 0.2-2.0 [facility] Comment on above: Performed By: #### C BC #### [facility] [address] [id number] Jesi Rachna EO # 0.0 103/ul Normal 0.0-0.7 [facility] Comment on above: Performed By: #### C BC #### [facility] [address] [address] Jesi Rachna Eosinophils/100 WBC (Bld) 0.6 % Critically low 0.9-7.0 [facility] Comment on above: Performed By: #### C BC #### [facility] [address] [place], [place] [id number] Jesi Rachna Erythrocyte distribution width (RBC) [Ratio] 11.9 % Normal 11.0-15.0 [facility] Comment on above: Performed By: #### C BC #### [facility] [address] [address] Jesi Rachna Hematocrit (Bld) [Volume fraction] 38.5 % Normal 36.0-48.0 [facility] Comment on above: Performed By: #### C BC #### [facility] [address] [id number] Jesi Rachna Hemoglobin (Bld) [Mass/Vol] 12.1 g/dL Normal 12.0-16.0 [facility] Comment on above: Performed By: #### C BC #### [facility] [address] [address] Jesi Rachna IG # 0.01 10e3/ul Normal 0.00-0.[address] [facility] Comment on above: Performed By: #### C BC #### [facility] [address] [place], [place] [id number] Jesi Rachna IG % 0.1 % Normal 0.0-0.5 [facility] Comment on above: Performed By: #### C BC #### [facility] [address] [place], [place] [id number] Jesi Rachna LYMPH # 1.7 103/ul Normal 1.2-3.[address] [facility] Comment on above: Performed By: #### C BC #### [facility] [address] [place], [place] [id number] Jesisanaz Briscoe Lymphocytes/100 WBC (Bld) 26.1 % Normal 20.5-60.0 [facility] Comment on above: Performed By: #### C BC #### [facility] [address] [place] [address] Jesisanaz Briscoe MANUAL DIFF REQ NO Normal [facility] Comment on above: Performed By: #### C BC #### [facility] [address] [place], [place] [id number] Jesisanaz Briscoe MCH (RBC) [Entitic mass] 31.8 pg Normal 26.7-34.0 [facility] Comment on above: Performed By: #### C BC #### [facility] [address] [place], [place] [id number] Jesisanaz Briscoe MCHC (RBC) [Mass/Vol] 31.4 g/dL Normal 29.9-35.[address] [facility] Comment on above: Performed By: #### C BC #### [facility] [address] [place], [place] [id number] Jesi Rachna MCV (RBC) [Entitic vol] 101.0 fL Critically high 81.0-99.[address] [facility] Comment on above: Performed By: #### C BC #### [facility] [address] [place] [address] Jesi Rachna MONO # 0.4 103/ul Normal 0.3-0.[address] [facility] Comment on above: Performed By: #### C BC #### [facility] [address] [id number] Jesi Rachna Monocytes/100 WBC (Bld) 5.2 % Normal 1.7-12.[address] [facility] Comment on above: Performed By: #### C BC #### [facility] [address] [place], [place] [id number] Jesisanaz Lamaren NEUT # 4.5 103/ul Normal 1.4-6.[address] [facility] Comment on above: Performed By: #### C BC #### [facility] [address] [place], [place] [id number] Jesi Rachna Neutrophils/100 WBC (Bld) 67.6 % Normal 43.0-75.[address] [facility] Comment on above: Performed By: #### C BC #### [facility] [address] [place], [place] [id number] Jesisanaz Briscoe Platelet mean volume (Bld) [Entitic vol] 10.3 fL Normal 9.5-13.[address] [facility] Comment on above: Performed By: #### C BC #### [facility] [address] [place], [place] [id number] Jesi Rachna PLT 329 103/ul Normal 150-[address] [facility] Comment on above: Performed By: #### C BC #### [facility] [address] [place], [place] [address] Jesi Rachna RBC 3.81 106/ul Critically low 4.20-5.40 [facility] Comment on above: Performed By: #### C BC #### [facility] [address] [place], [place] [id number] Jesi Rachna WBC 6.7 103/ul Normal 4.0-11.[address] [facility] Comment on above: Performed By: #### C BC #### [facility] [address] [place], [place] [id number] Jesi Rachna MYOGLOBINon 01-31-2021 JIMBO 44.0 ng/mL Normal <=61.[address] [facility] Comment on above: Performed By: #### M CHANTAL CMP #### [facility] [address] [place], [place] [id number] Jesi Rachna PROF 14(COMP METB)on 021 Albumin [Mass/Vol] 3.7 g/dL Normal 3.5-5.0 [facility] Comment on above: Performed By: #### Danielle CORNEJO, CMP #### [facility] [address] [place] [address] Jesi Rachna Albumin/Globulin [Mass ratio] 0.9 {ratio} Normal [facility] Comment on above: Performed By: #### Danielle CORNEJO, CMP #### [facility] Laboratory [address] [place] [address] Jesi Rachna ALP [Catalytic activity/Vol] 81 U/L Normal 38-126 [facility] Comment on above: Performed By: #### Danielle CORNEJO, CMP #### [facility] [address] [place] [address] Jesi Rachna ALT [Catalytic activity/Vol] 17 U/L Normal 9-52 [facility] Comment on above: Performed By: #### Danielle CORNEJO, CMP #### [facility] [address] [place] [address] Jesi Rachna Anion gap [Moles/Vol] 15.1 mmol/L Normal [facility] Comment on above: Performed By: #### Danielle CORNEJO, CMP #### [facility] [address] [place] [address] Jesi Rachna AST [Catalytic activity/Vol] 26 U/L Normal 14-36 [facility] Comment on above: Performed By: #### Danielle CORNEJO, CMP #### [facility] [address] [place] [address] Jesi Rachna Bilirubin [Mass/Vol] 0.3 mg/dL Normal 0.2-1.3 [facility] Comment on above: Performed By: #### Danielle CORNEJO, CMP #### [facility] [address] [place], [place] [id number] Jesi Rachna Calcium [Mass/Vol] 9.4 mg/dL Normal 8.4-10.2 [facility] Comment on above: Performed By: #### Danielle CORNEJO, CMP #### [facility] [address] [place], [place] [id number] Jesi Rachna Chloride [Moles/Vol] 104 mmol/L Normal 98-107 [facility] Comment on above: Performed By: #### M YO, CMP #### [facility] [address] [place] [address] Jesi Rachna CO2 [Moles/Vol] 26.0 mmol/L Normal 22.0-30.0 [facility] Comment on above: Performed By: #### M YO, CMP #### [facility] [address] [place] [address] Jesi Rachna Creatinine [Mass/Vol] 1.21 mg/dL Critically high 0.52-1.04 [facility] Comment on above: Performed By: #### M YO, CMP #### [facility] [address] [place] [address] Jesi Rachna EGFR-AF CUBAN 54 mL/min/1.73m2 Critically low >=60 [facility] Comment on above: Performed By: #### M YO, CMP #### [facility] [address] [place] [address] Jesi Rachna EGFR-NON AF CUBAN 44 mL/min/1.73m2 Critically low >=60 [facility] Comment on above: Performed By: #### M YO, CMP #### [facility] [address] [place] [address] Jesi Rachna Globulin (S) [Mass/Vol] 3.9 g/dL Normal [facility] Comment on above: Performed By: #### M YO, CMP #### [facility] [address] [place] [address] Jesi Rachna Glucose [Mass/Vol] 138 mg/dL Critically high 74-106 [facility] Comment on above: Performed By: #### M YO, CMP #### [facility] [address] [place] [address] Jesi Rachna Potassium [Moles/Vol] 4.1 mmol/L Normal 3.4-5.0 [facility] Comment on above: Performed By: #### M YO, CMP #### [facility] [address] [place] [address] Jesi Rachna Protein [Mass/Vol] 7.6 g/dL Normal 6.1-8.2 [facility] Comment on above: Performed By: #### Danielle CORNEJO, CMP #### [facility] [address] [id number] Jesi Rachna Sodium [Moles/Vol] 141 mmol/L Normal 137-145 [facility] Comment on above: Performed By: #### Danielle CORNEJO, CMP #### [facility] [address] [id number] Jesi Rachna Urea nitrogen [Mass/Vol] 19.0 mg/dL Critically high 7.0-17.0 [facility] Comment on above: Performed By: #### Danielle CORNEJO, CMP #### [facility] [address] [id number] Jesi Rachna Urea nitrogen/Creatinine [Mass ratio] 15.7 mg/mg Normal [facility] Comment on above: Performed By: #### Danielle CORNEJO, CMP #### [facility] [address] [id number] Jesi Rachna SED RATE [facility] 2020 SED RATE 66 mm/hr Critically high <=[address] [facility] Comment on above: Performed By: #### Danielle CORNEJO, CMP #### [facility] [address] [id number] Jesi Rachna Vital Signs Date Time Vital Sign Value Performing Clinician Facility 11-29-2023 13:43-0400 Body height 160.02 cm [facility] 11-29-2023 13:43-0400 Body mass index (BMI) [Ratio] 20.9 kg/m2 [facility] 11-29-2023 13:43-0400 Body weight 53.52 kg [facility] 11-29-2023 13:43-0400 Diastolic blood pressure 81 mm[Hg] [facility] 11-29-2023 13:43-0400 Heart rate 109 /min [facility] 11-29-2023 13:43-0400 Systolic blood pressure 128 mm[Hg] [facility] 01-18-2023 13:00-0400 Body height 160.02 cm Crystal Rivera [facility] Other 01-18-2023 13:00-0400 Body mass index (BMI) [Ratio] 20.72 kg/m2 Crystal Jose Other [facility] Other 01-18-2023 13:00-0400 Body weight 53.07 kg Crystal Jose Other [facility] Other 01-18-2023 13:00-0400 Diastolic blood pressure 84 mm[Hg] Crystal Jose Other [facility] Other 01-18-2023 13:00-0400 Systolic blood pressure 134 mm[Hg] Crystal Jose Other [facility] Other Encounters Encounter Date Encounter Type Care Provider Facility Start: 01-07-2024 End: 01-07-2024 ambulatory Lia Marcum MD Facility:[facility] Start: 11-29-2023 End: 11-29-2023 ambulatory [facility] Work Phone: Start: 11-29-2023 End: 11-29-2023 Patient encounter procedure [facility] Work Phone: Start: 01-30-2023 End: 01-30-2023 ambulatory Crystal Jose Other [facility] Other Start: 01-30-2023 Telephone encounter Crystal Jose [facility] Start: 01-19-2023 End: 01-19-2023 ambulatory Crystal Jose Other [facility] Other Start: 01-19-2023 Telephone encounter Crystal Jose [facility] Start: 01-18-2023 End: 01-18-2023 ambulatory Crystal Jose Other [facility] Other Start: 01-18-2023 Office outpatient ne w 30 minutes Crystal Jose [facility] Start: 01-25-2022 End: 01-26-[address] [place] Facility:[facility] Start: 11-29-2021 End: 11-30-[address] [place] Facility:[facility] Start: 03-03-2021 End: 03-04-[address] [place] Facility:[facility] Start: 01-31-2021 End: 02-01-[address] [place] Facility:[facility] Plan of Treatment Date Care Activity Detail Author DXA Skeletal system. axial Views for bone density [facility] enter XR Lumbar spine 2 or 3 Views [facility] Payers Date Payer Category Payer Medicare 2023 Unknown 1957 Medicare [id number] 1957 Unknown [id number] 1950 Unknown [id number] 2.16.84 [id number] 1950 Unknown [id number] 2.16.84 [id number] 1950 Unknown [id number] 2.16.84 [id number] 1952 Unknown [id number] 2.16.84 [id number] 1952 Unknown [id number] [id number] Unknown [facility] [id number] Social History Date Type Detail Facility Unknown if ever smoked [facility] Other Sex Assigned At Sex Assigned At Bir th [facility] Other Start: 11-29-2023 Tobacco smoking status NHIS Never smoked tobacco (finding) [facility] Start: 1950 Sex Assigned At Female F [facility] Evaluation note 01-18-2023 Note Date & Type Note Facility 01-18-2023 Evaluation note Encounter Date Diagnosis Assessment Notes Jan, Piriformis syndrome of right side (ICD-10 - G57.01) Order for PT given to pt. Consider repeat xray, Neurosurgery referral. Requests short term rx of pain med. 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 [facility] Other Evaluation note Note Date & Type Note Facility Evaluation note No Information [facility] Valued Relationships Other Evaluation note Note Date & Type Note Facility Evaluation note Diagnosis Onset Date Bilateral sacroiliitis acute Hyperglycemia acute Low vitamin D level acute Medicare annual wellness visit, subsequent acute Osteopenia acute Osteoporosis acute [facility] Work Phone: History general Narrative - Reported Note Date & Type Note Facility History general Narrative - Reported Type Medical History osteoporosis [facility] Other Summary Purpose Family History No Family History Records Found Relationship Condition Age at Onset Recorded Date/T toma father Unknown Advance Directives No Advanced Directives Records Found Advance Directive Response Recorded Date/ Time Advance Directives No November 28 1:25pm Chief Complaint and Reason for Visit Chief Complaint pysical Reason for Visit Bilateral sacroiliit is Hyperglycemia Low vitamin D level Medicare annual wellness visit, subsequent Osteopenia Osteoporosis Additional Source Comments INFORMATION SOURCE (unrecogn ized section and content) DATE CREATED AUTHOR 01/28/2022 [facility] DATE CREATED AUTHOR AUTHOR'S ORGANIZ ATION 01/21/2024 [facility] REASON FOR VISIT (unrecogniz ed section and [...] BE BASED ON THE PRIMARY CLINICAL RECORDS. [facility]. provides no warranty or guarantee of the accuracy or completeness of information in this document.
[2024-01-21 08:15] VITALS: BP 176/99; PULSE 120; TEMP 36.2; O2SAT 99
[2024-01-21] MEDS: BUPIVACAINE HCL 0.25% PF 25 MG/10 ML VIAL 8 ML INJ (09:07)
[2024-01-21] MEDS: LIDOCAINE HCL 2% 400 MG/20 ML MDV INJ (09:08)
[2024-01-21 09:09] VITALS: BP 193/91; BP 213/94; PULSE 77; PULSE 81; O2SAT 98; O2SAT 99
--- NOTE | 2024-01-21 09:10 | W.PM.PROCNOT ---
Date of procedure: 01/21/24 Pre-op diagnosis: Pain due to lumbar spondylosis without myelopathy Post-op diagnosis: same as pre-op Procedure: Procedure: Bilateral L4-5, L5-S1 medial branch block Medications: Bupivacaine 0.25% 6cc The patient was seen and examined in the preoperative holding area.? An informed consent was obtained and placed on the chart.? The patient was brought to the medical procedure unit and placed in the prone position.? A timeout was completed verifying correct patient, procedure site, positioning, plan, and special equipment.? Using aseptic technique, the needle was placed at left L4. Under direct fluoroscopic visualization a Quincke-tipped spinal needle was advanced to the junction of the superior articulating process with the transverse process at the designated medial branch segment.? Preceded by negative aspiration, the above-mentioned injectate was placed in 1 mL aliquots.? The procedure was repeated at left L5, S1.? The needle was removed and insertion site was covered. The same procedure, at the same levels, was completed on the right side. The patient was taken to the postprocedural recovery area and monitored for an appropriate length of time before found suitable for discharge in the company of a responsible adult. Anesthesia: Local Surgeon: Lia Marcum Pathology: none sent Condition: stable Disposition: no change
== END 2024-01-21 09:14 | disposition home or self-care (01) ==
PROVIDERS: PCP Family Medicine; Visit Provider Anesthesiology
DX: M47.816 Spondylosis without myelopathy or radiculopathy, lumbar region (principal)
CPT/HCPCS: 64493; 64494; J0665

== ENCOUNTER 2024-01-23 10:45 | Outpatient (OUT) | payer MEDICARE, OTHER, SELFPAY ==
--- OUTSIDE RECORDS SUMMARY | 2024-01-23 10:54 | XMS_ITS | CCD ---
Author Organization [facility] Care Team Providers Care [employer] Director Name Role Phone HOUSE, DR PICKARD Admitting [...] (3 sources) methylPREDNISolone Drug Allergy bad reaction Merged With [facility] [email or web address] Other Medications Current Medications Medication Drug Class(es) [...] sources) Calcitonin Start: 11-28-2023 End: 11-29-2023 Calcitonin ([place]) Active 1 SPRAY intranasal (ALT) Daily November [...] ELLIOTT BECERRIL Date: 2022-01-26 06:54 Normal [facility] MG MAMM SCREEN 3D KING CADon 01-25-2022 MG MAMM SCREEN 3D KING CAD Patient: ABBY STAHL Exam Date: 01/25/2022 : 1950 Gender:F Ordering : DR MELLY OH D.O. Admission #: [id number] Family : Order #: [id number] CLICK HERE TO VIEW EXAM RADIOLOGY REPORT [...] Treatments None Family Cancers None LOCATION: [facility] BREAST COMPOSITION: Heterogeneously dense,which may obscure [...] M.D. on 01/25/2022 at 13:54 Normal [facility] CBC AUTO DIFFon 11-29-2021 BASO # 0.0 103/ul Normal 0.0-0.1 [facility] Comment on above: Performed By: #### C BC #### [facility] [address] [address] [address] Torri Gomez Basophils/100 WBC (Bld) 0.7 % Normal 0.2-2.0 [facility] Comment on above: Performed By: #### C BC #### [facility] [address] [place] [address] Dr. Torri Gomez EO # 0.1 103/ul Normal 0.0-0.7 [facility] Comment on above: Performed By: #### C BC #### [facility] [address] [place] [address] Dr. Torri Gomez Eosinophils/100 WBC (Bld) 2.4 % Normal 0.9-7.0 [facility] Comment on above: Performed By: #### C BC #### [facility] [address] [place] [address] Dr. Torri Gomez Erythrocyte distribution width (RBC) [Ratio] 11.7 % Normal 11.0-15.0 [facility] Comment on above: Performed By: #### C BC #### [facility] [address] [place] [address] Dr. Torri Gomez Hematocrit (Bld) [Volume fraction] 43.5 % Normal 36.0-48.0 [facility] Comment on above: Performed By: #### C BC #### [facility] [address] [place] [address] Dr. Torri Gomez Hemoglobin (Bld) [Mass/Vol] 14.2 g/dL Normal 12.0-16.0 [facility] Comment on above: Performed By: #### C BC #### [facility] [address] [place] [address] Dr. Torri Gomez IG # 0.01 10e3/ul Normal 0.00-0.03 [facility] Comment on above: Performed By: #### C BC #### [facility] [address] [place] [address] Dr. Torri Gomez IG % 0.2 % Normal 0.0-0.5 [facility] Comment on above: Performed By: #### C BC #### [facility] [address] [place] [address] Dr. Torri Gomez LYMPH # 1.5 103/ul Normal 1.2-3.8 [facility] Comment on above: Performed By: #### C BC #### [facility] [address] [place] [address] Dr. Torri Gomez Lymphocytes/100 WBC (Bld) 35.6 % Normal 20.5-60.0 [facility] Comment on above: Performed By: #### C BC #### [facility] [address] [place] [address] Dr. Torri Gomez MANUAL DIFF REQ NO Normal [facility] Comment on above: Performed By: #### C BC #### [facility] [address] [place] [address] Dr. Torri Gomez MCH (RBC) [Entitic mass] 32.3 pg Normal 26.7-34.0 [facility] Comment on above: Performed By: #### C BC #### [facility] [address] [place] [address] Dr. Torri Gomez MCHC (RBC) [Mass/Vol] 32.6 g/dL Normal 29.9-35.2 [facility] Comment on above: Performed By: #### C BC #### [facility] [address] [place] [address] Dr. Torri Gomez MCV (RBC) [Entitic vol] 98.9 fL Normal 81.0-99.0 [facility] Comment on above: Performed By: #### C BC #### [facility] [address] [place] [address] Dr. Torri Gomez MONO # 0.4 103/ul Normal 0.3-0.8 [facility] Comment on above: Performed By: #### C BC #### [facility] [address] [place] [address] Dr. Torri Gomez Monocytes/100 WBC (Bld) 9.8 % Normal 1.7-12.0 [facility] Comment on above: Performed By: #### C BC #### [facility] [address] [place] [address] Dr. Torri Gomez NEUT # 2.2 103/ul Normal 1.4-6.5 [facility] Comment on above: Performed By: #### C BC #### [facility] [address] [place] [address] Dr. Torri Gomez Neutrophils/100 WBC (Bld) 51.3 % Normal 43.0-75.0 [facility] Comment on above: Performed By: #### C BC #### [facility] [address] [place] [address] Dr. Torri Gomez Platelet mean volume (Bld) [Entitic vol] 10.4 fL Normal 9.5-13.5 [facility] Comment on above: Performed By: #### C BC #### [facility] [address] [place] [address] Dr. Torri Gomez PLT 269 103/ul Normal 150-450 [facility] Comment on above: Performed By: #### C BC #### [facility] [address] [place] [address] Dr. Torri Gomez RBC 4.40 106/ul Normal 4.20-5.40 [facility] Comment on above: Performed By: #### C BC #### [facility] [address] [place] [address] Dr. Torri Gomez WBC 4.2 103/ul Normal 4.0-11.0 [facility] Comment on above: Performed By: #### C BC #### [facility] [address] [place] [address] Dr. Torri Gomez GLYCOHEMOGLOBIN A1Con 2021 ADA RECOMMENDATION SEE BELOW Normal [facility] Comment on above: Result Comment: ADA RECOMMENDED LIMIT 4.0 - 6.0 ADA THERAPEUTIC TARGET < 7.0 ACTION SUGGESTED > 7.0 Performed By: #### Danielle CORNEJO, CMP #### [facility] [address] [place] [address] Jesi Rachna Glucose [Mass/Vol] 120 mg/dL Normal [facility] Comment on above: Performed By: #### Danielle CORNEJO, CMP #### [facility] [address] [place] [address] Jesi Rachna HbA1c (Bld) [Mass fraction] 5.8 % Normal 4.5-6.2 [facility] Comment on above: Performed By: #### Danielle CORNEJO, CMP #### [facility] [address] [address] Jesi Briscoe LIPID PROFILEon 11-29-2021 CHOL-HDL RATIO NORM SEE BELOW Normal [facility] Comment on above: Result Comment: 3.3 - 4.4 LOW RISK 4.4 - 7.1 AVERAGE RISK 7.1 - 11.0 MODERATE RISK >11.0 HIGH RISK Performed By: #### T 4, LIPID, TSH, CMP #### [facility] [address] [address] [address] Torri Gomez Cholesterol [Mass/Vol] 198 mg/dL Normal <=200 [facility] Comment on above: Performed By: #### T 4, LIPID, TSH, CMP #### [facility] [address] [place] [address] Dr. Torri Gomez Cholesterol in HDL [Mass/Vol] 79 mg/dL Critically high 40-60 [facility] Comment on above: Performed By: #### T 4, LIPID, TSH, CMP #### [facility] [address] [address] [address] Torri Gomez Cholesterol in LDL [Mass/Vol] 101.0 mg/dL Normal [facility] Comment on above: Performed By: #### T 4, LIPID, TSH, CMP #### [facility] [address] [address] [address] Torri Gomez Cholesterol.total/Cho lesterol in HDL [Mass ratio] 2.5 {ratio} Normal [facility] Comment on above: Performed By: #### T 4, LIPID, TSH, CMP #### [facility] [address] [address] [address] Torri Gomez HDL NORMAL > or = 60 mg/dl - LO W CARDIOVASCULAR RISK <40 mg/dl - HIGH CARDIOVASCULAR RISK Normal [facility] Comment on above: Performed By: #### T 4, LIPID, TSH, CMP #### [facility] [address] [place] [address] Dr. Torri Gomez LDL CALC NORMAL SEE BELOW Normal [facility] Comment on above: Result Comment: <100 mg/dl OPTIMAL 100 - 129 mg/dl NEAR OR ABOVE OPTIMAL 130 - 159 mg/dl BORDERLINE HIGH 160 - 189 mg/dl HIGH >190 mg/dl VERY HIGH Performed By: #### T 4, LIPID, TSH, CMP #### [facility] [address] [address] [address] Torri Gomez Triglyceride [Mass/Vol] 90 mg/dL Normal <=150 [facility] Comment on above: Performed By: #### T 4, LIPID, TSH, CMP #### [facility] [address] [address] [address] Torri Gomez VLDL CALC 18.0 mg/dL Normal [facility] Comment on above: Performed By: #### T 4, LIPID, TSH, CMP #### [facility] [address] [place] [address] Dr. Torri Gomez PROF 14(COMP METB)on 022 Albumin [Mass/Vol] 4.1 g/dL Normal 3.4-5.0 [facility] Comment on above: Performed By: #### T 4, LIPID, TSH, CMP #### [facility] [address] [place] [address] Dr. Torri Gomez Albumin/Globulin [Mass ratio] 1.2 {ratio} Normal [facility] Comment on above: Performed By: #### T 4, LIPID, TSH, CMP #### [facility] [address] [place] [address] Dr. Torri Gomez ALP [Catalytic activity/Vol] 88 U/L Normal 46-116 [facility] Comment on above: Performed By: #### T 4, LIPID, TSH, CMP #### [facility] [address] [place] [address] Dr. Torri Gomez ALT [Catalytic activity/Vol] 22 U/L Normal 14-59 [facility] Comment on above: Performed By: #### T 4, LIPID, TSH, CMP #### [facility] [address] [place] [address] Dr. Torri Gomez Anion gap [Moles/Vol] 13.6 mmol/L Normal [facility] Comment on above: Performed By: #### T 4, LIPID, TSH, CMP #### [facility] [address] [place] [address] Dr. Torri Gomez AST [Catalytic activity/Vol] 18 U/L Normal 15-37 [facility] Comment on above: Performed By: #### T 4, LIPID, TSH, CMP #### [facility] [address] [address] [address] Torri Gomez Bilirubin [Mass/Vol] 0.5 mg/dL Normal 0.2-1.0 [facility] Comment on above: Performed By: #### T 4, LIPID, TSH, CMP #### [facility] [address] [address] [address] Torri Gomez Calcium [Mass/Vol] 9.1 mg/dL Normal 8.5-10.1 [facility] Comment on above: Performed By: #### T 4, LIPID, TSH, CMP #### [facility] [address] [address] [address] Torri Gomez Chloride [Moles/Vol] 104 mmol/L Normal 98-107 [facility] Comment on above: Performed By: #### T 4, LIPID, TSH, CMP #### [facility] [address] [address] [address] Torri Gomez CO2 [Moles/Vol] 26.8 mmol/L Normal 21.0-32.0 [facility] Comment on above: Performed By: #### T 4, LIPID, TSH, CMP #### [facility] [address] [address] [address] Torri Gomez Creatinine [Mass/Vol] 1.06 mg/dL Critically high 0.55-1.02 [facility] Comment on above: Performed By: #### T 4, LIPID, TSH, CMP #### [facility] [address] [address] [address] Torri Gomez EGFR-AF MALTESE >60 Normal >=60 [facility] Comment on above: Performed By: #### T 4, LIPID, TSH, CMP #### [facility] [address] [address] [address] Torri Gomez EGFR-NON AF M[place]ESE 51 mL/min/1.73m2 Critically low >=60 [facility] Comment on above: Performed By: #### T 4, LIPID, TSH, CMP #### [facility] [address] [address] [address] Torri Gomez Globulin (S) [Mass/Vol] 3.4 g/dL Normal [facility] Comment on above: Performed By: #### T 4, LIPID, TSH, CMP #### [facility] [address] [address] [address] Torri Gomez Glucose [Mass/Vol] 93 mg/dL Normal 74-106 [facility] Comment on above: Performed By: #### T 4, LIPID, TSH, CMP #### [facility] [address] [address] [address] Torri Gomez Potassium [Moles/Vol] 4.4 mmol/L Normal 3.5-5.1 [facility] Comment on above: Performed By: #### T 4, LIPID, TSH, CMP #### [facility] [address] [place] [address] Dr. Torri Gomez Protein [Mass/Vol] 7.5 g/dL Normal 6.4-8.2 [facility] Comment on above: Performed By: #### T 4, LIPID, TSH, CMP #### [facility] [address] [place] [address] Dr. Torri Gomez Sodium [Moles/Vol] 140 mmol/L Normal 136-145 [facility] Comment on above: Performed By: #### T 4, LIPID, TSH, CMP #### [facility] [address] [address] [address] Torri Gomez Urea nitrogen [Mass/Vol] 21.0 mg/dL Critically high 7.0-18.0 [facility] Comment on above: Performed By: #### T 4, LIPID, TSH, CMP #### [facility] [address] [place] [address] Dr. Torri Gomez Urea nitrogen/Creatinine [Mass ratio] 19.8 mg/mg Normal [facility] Comment on above: Performed By: #### T 4, LIPID, TSH, CMP #### [facility] [address] [place] [address] Dr. Torri Gomez T4on 11-29-2021 T4 [Mass/Vol] 6.70 ug/dL Normal 4.80-13.90 [facility] Comment on above: Performed By: #### M CHANTAL, CMP #### [facility] [address] [place] [address] Jesisanaz Lamaren TSHon 11-29-2021 TSH 2.359 uIU/mL Normal 0.358-3.740 [facility] Comment on above: Performed By: #### T 4, LIPID, TSH, CMP #### [facility] [address] [place] [address] Dr. Torri Gomez VITAMIN D 25 OHon 11-29-2021 VIT D 25-OH 70.8 ng/mL Normal [facility] Comment on above: Performed By: #### Danielle CORNEJO, CMP #### [facility] [address] [place] [address] Jesi Rachna VIT D RANGES SEE BELOW Normal [facility] Comment on above: Result Comment: <20 ng/mL Vit D deficient 20 - <30 ng/mL Vit D insufficient 30 - 100 ng/mL Vit D sufficient >100 ng/mL Potential Toxicity Performed By: #### Danielle CORNEJO, CMP #### [facility] [address] [place] [address] Jesi Briscoe PROF 14(COMP METB)on 021 Albumin [Mass/Vol] 4.0 g/dL Normal 3.5-5.0 [facility] Comment on above: Performed By: #### C MP #### [facility] [address] [place] [address] Dr. Torri Gomez Albumin/Globulin [Mass ratio] 1.2 {ratio} Normal [facility] Comment on above: Performed By: #### C MP #### [facility] [address] [place] [address] Dr. Torri Gomez ALP [Catalytic activity/Vol] 83 U/L Normal 38-126 [facility] Comment on above: Performed By: #### C MP #### [facility] [address] [place] [address] Dr. Torri Gomez ALT [Catalytic activity/Vol] 16 U/L Normal 9-52 [facility] Comment on above: Performed By: #### C MP #### [facility] [address] [address] [address] Torri Gomez Anion gap [Moles/Vol] 13.9 mmol/L Normal Th e [facility] Comment on above: Performed By: #### C MP #### [facility] [address] [address] [address] Torri Gomez AST [Catalytic activity/Vol] 28 U/L Normal 14-36 [facility] Comment on above: Performed By: #### C MP #### [facility] [address] [address] [address] Torri Gomez Bilirubin [Mass/Vol] 0.6 mg/dL Normal 0.2-1.3 [facility] Comment on above: Performed By: #### C MP #### [facility] [address] [address] [address] Torri Gomez Calcium [Mass/Vol] 9.1 mg/dL Normal 8.4-10.2 [facility] Comment on above: Performed By: #### C MP #### [facility] [address] [address] [address] Torri Gomez Chloride [Moles/Vol] 103 mmol/L Normal 98-107 [facility] Comment on above: Performed By: #### C MP #### [facility] [address] [address] [address] Torri Gomez CO2 [Moles/Vol] 25.1 mmol/L Normal 22.0-30.0 [facility] Comment on above: Performed By: #### C MP #### [facility] [address] [address] [address] Torri Gomez Creatinine [Mass/Vol] 1.07 mg/dL Critically high 0.52-1.04 [facility] Comment on above: Performed By: #### C MP #### [facility] [address] [address] [address] Torri Gomez EGFR-AF M[place]ESE >60 Normal >=60 [facility] Comment on above: Performed By: #### C MP #### [facility] [address] [address] [address] Torri Gomez EGFR-NON AF [place]ESE 51 mL/min/1.73m2 Critically low >=60 [facility] Comment on above: Performed By: #### C MP #### [facility] [address] [address] [address] Torri Gomez Globulin (S) [Mass/Vol] 3.4 g/dL Normal [facility] Comment on above: Performed By: #### C MP #### [facility] [address] [address] [address] Torri Gomez Glucose [Mass/Vol] 131 mg/dL Critically high 74-106 [facility] Comment on above: Performed By: #### C MP #### [facility] [address] [address] [address] Torri Gomez Potassium [Moles/Vol] 5.0 mmol/L Normal 3.4-5.0 [facility] Comment on above: Performed By: #### C MP #### [facility] [address] [address] [address] Torri Gomez Protein [Mass/Vol] 7.4 g/dL Normal 6.1-8.2 [facility] Comment on above: Performed By: #### C MP #### [facility] [address] [address] [address] Torri Gomez Sodium [Moles/Vol] 137 mmol/L Normal 137-145 [facility] Comment on above: Performed By: #### C MP #### [facility] [address] [address] [address] Torri Gomez Urea nitrogen [Mass/Vol] 26.0 mg/dL Critically high 7.0-17.0 [facility] Comment on above: Performed By: #### C MP #### [facility] [address] [address] [address] Torri Gomez Urea nitrogen/Creatinine [Mass ratio] 24.3 mg/mg Normal [facility] Comment on above: Performed By: #### C MP #### [facility] [address] [place], [place] [address] Dr. Torri Gomez CBC AUTO DIFFon 01-31-2021 BASO # 0.0 103/ul Normal 0.0-0.1 [facility] Comment on above: Performed By: #### C BC #### [facility] [address] [id number] Jesi Rachna Basophils/100 WBC (Bld) 0.4 % Normal 0.2-2.0 [facility] Comment on above: Performed By: #### C BC #### [facility] [address] [id number] Jesi Rachna EO # 0.0 103/ul Normal 0.0-0.7 [facility] Comment on above: Performed By: #### C BC #### [facility] [address] [address] Jesi Rachna Eosinophils/100 WBC (Bld) 0.6 % Critically low 0.9-7.0 [facility] Comment on above: Performed By: #### C BC #### [facility] [address] [place], [place] [id number] Jesi Rachna Erythrocyte distribution width (RBC) [Ratio] 11.9 % Normal 11.0-15.0 [facility] Comment on above: Performed By: #### C BC #### [facility] [address] [address] Jesi Rachna Hematocrit (Bld) [Volume fraction] 38.5 % Normal 36.0-48.0 [facility] Comment on above: Performed By: #### C BC #### [facility] [address] [id number] Jesi Rachna Hemoglobin (Bld) [Mass/Vol] 12.1 g/dL Normal 12.0-16.0 [facility] Comment on above: Performed By: #### C BC #### [facility] [address] [address] Jesi Rachna IG # 0.01 10e3/ul Normal 0.00-0.03 [facility] Comment on above: Performed By: #### C BC #### [facility] [address] [place], [place] [id number] Jesi Rachna IG % 0.1 % Normal 0.0-0.5 [facility] Comment on above: Performed By: #### C BC #### [facility] [address] [place], [place] [id number] Jesi Rachna LYMPH # 1.7 103/ul Normal 1.2-3.8 [facility] Comment on above: Performed By: #### C BC #### [facility] [address] [place], [place] [id number] Jesisanaz Briscoe Lymphocytes/100 WBC (Bld) 26.1 % Normal 20.5-60.0 [facility] Comment on above: Performed By: #### C BC #### [facility] [address] [place] [address] Jesisanaz Briscoe MANUAL DIFF REQ NO Normal [facility] Comment on above: Performed By: #### C BC #### [facility] [address] [place], [place] [id number] Jesisanaz Briscoe MCH (RBC) [Entitic mass] 31.8 pg Normal 26.7-34.0 [facility] Comment on above: Performed By: #### C BC #### [facility] [address] [place], [place] [id number] Jesisanaz Briscoe MCHC (RBC) [Mass/Vol] 31.4 g/dL Normal 29.9-35.2 [facility] Comment on above: Performed By: #### C BC #### [facility] [address] [place], [place] [id number] Jesi Rachna MCV (RBC) [Entitic vol] 101.0 fL Critically high 81.0-99.0 [facility] Comment on above: Performed By: #### C BC #### [facility] [address] [place] [address] Jesi Rachna MONO # 0.4 103/ul Normal 0.3-0.8 [facility] Comment on above: Performed By: #### C BC #### [facility] [address] [id number] Jesi Rachna Monocytes/100 WBC (Bld) 5.2 % Normal 1.7-12.0 [facility] Comment on above: Performed By: #### C BC #### [facility] [address] [place], [place] [id number] Jesisanaz Lamaren NEUT # 4.5 103/ul Normal 1.4-6.5 [facility] Comment on above: Performed By: #### C BC #### [facility] [address] [place], [place] [id number] Jesi Rachna Neutrophils/100 WBC (Bld) 67.6 % Normal 43.0-75.0 [facility] Comment on above: Performed By: #### C BC #### [facility] [address] [place], [place] [id number] Jesisanaz Briscoe Platelet mean volume (Bld) [Entitic vol] 10.3 fL Normal 9.5-13.5 [facility] Comment on above: Performed By: #### C BC #### [facility] [address] [place], [place] [id number] Jesi Rachna PLT 329 103/ul Normal 150-450 [facility] [facility] Comment on above: Performed By: #### C BC #### [facility] [address] [place], [place] [id number] Jesi Rachna RBC 3.81 106/ul Critically low 4.20-5.40 [facility] Comment on above: Performed By: #### C BC #### [facility] [address] [place], [place] [id number] Jesi Rachna WBC 6.7 103/ul Normal 4.0-11.0 [facility] Comment on above: Performed By: #### C BC #### [facility] [address] [place], [place] [id number] Jesi Rachna MYOGLOBINon 01-31-2021 JIMBO 44.0 ng/mL Normal <=61.5 [facility] Comment on above: Performed By: #### M CHANTAL CMP #### [facility] [address] [place], [place] [id number] Jesi Rachna PROF 14(COMP METB)on 021 Albumin [Mass/Vol] 3.7 g/dL Normal 3.5-5.0 [facility] Comment on above: Performed By: #### Danielle CORNEJO, CMP #### [facility] [address] [place] [address] Jesi Rachna Albumin/Globulin [Mass ratio] 0.9 {ratio} Normal [facility] Comment on above: Performed By: #### Danielle CORNEJO, CMP #### [facility] [address] [place] [address] Jesi Rachna ALP [Catalytic activity/Vol] 81 U/L Normal 38-126 [facility] Comment on above: Performed By: #### Danielle CORNEJO, CMP #### [facility] [address] [place] [address] Jesi Rachna ALT [Catalytic activity/Vol] 17 U/L Normal 9-52 [facility] Comment on above: Performed By: #### Danielle CORNEJO, CMP #### [facility] [address] [place] [address] Jesi Rachna Anion gap [Moles/Vol] 15.1 mmol/L Normal [facility] Comment on above: Performed By: #### Danielle CORNEJO, CMP #### [facility] [address] [place] [address] Jesi Rachna AST [Catalytic activity/Vol] 26 U/L Normal 14-36 [facility] Comment on above: Performed By: #### Danielle CORNEJO, CMP #### [facility] [address] [place] [address] Jesi Rachna Bilirubin [Mass/Vol] 0.3 mg/dL Normal 0.2-1.3 [facility] Comment on above: Performed By: #### Danielle CORNEJO, CMP #### [facility] [address] [place], [place] [id number] Jesi Rachna Calcium [Mass/Vol] 9.4 mg/dL Normal 8.4-10.2 [facility] Comment on above: Performed By: #### Danielle CORNEJO, CMP #### [facility] [address] [place], [place] [id number] Jesi Rachna Chloride [Moles/Vol] 104 mmol/L Normal 98-107 [facility] Comment on above: Performed By: #### M YO, CMP #### [facility] [address] [place] [address] Jesi Rachna CO2 [Moles/Vol] 26.0 mmol/L Normal 22.0-30.0 [facility] Comment on above: Performed By: #### M YO, CMP #### [facility] [address] [place] [address] Jesi Rachna Creatinine [Mass/Vol] 1.21 mg/dL Critically high 0.52-1.04 [facility] Comment on above: Performed By: #### M YO, CMP #### [facility] [address] [place] [address] Jesi Rachna EGFR-AF MALTESE 54 mL/min/1.73m2 Critically low >=60 [facility] Comment on above: Performed By: #### M YO, CMP #### [facility] [address] [place] [address] Jesi Rachna EGFR-NON AF [place]ESE 44 mL/min/1.73m2 Critically low >=60 [facility] Comment on above: Performed By: #### M YO, CMP #### [facility] [address] [place] [address] Jesi Rachna Globulin (S) [Mass/Vol] 3.9 g/dL Normal [facility] Comment on above: Performed By: #### M YO, CMP #### [facility] [address] [place] [address] Jesi Rachna Glucose [Mass/Vol] 138 mg/dL Critically high 74-106 [facility] Comment on above: Performed By: #### M YO, CMP #### [facility] [address] [place] [address] Jesi Rachna Potassium [Moles/Vol] 4.1 mmol/L Normal 3.4-5.0 [facility] Comment on above: Performed By: #### M YO, CMP #### [facility] [address] [place] [address] Jesi Rachna Protein [Mass/Vol] 7.6 g/dL Normal 6.1-8.2 [facility] Comment on above: Performed By: #### Danielle CORNEJO, CMP #### [facility] [address] [id number] Jesi Rachna Sodium [Moles/Vol] 141 mmol/L Normal 137-145 [facility] Comment on above: Performed By: #### Danielle CORNEJO, CMP #### [facility] [address] [id number] Jesi Rachna Urea nitrogen [Mass/Vol] 19.0 mg/dL Critically high 7.0-17.0 [facility] Comment on above: Performed By: #### Danielle CORNEJO, CMP #### [facility] [address] [id number] Jesi Rachna Urea nitrogen/Creatinine [Mass ratio] 15.7 mg/mg Normal [facility] Comment on above: Performed By: #### Danielle CORNEJO, CMP #### [facility] [address] [id number] Jesi Rachna SED RATE [facility] 2020 SED RATE 66 mm/hr Critically high <=30 [facility] Comment on above: Performed By: #### Danielle CORNEJO, CMP #### [facility] [address] [id number] Jesi Rachna Vital Signs Date Time Vital Sign Value Performing Clinician Facility 11-29-2023 13:43-0400 Body height 160.02 cm [facility] 11-29-2023 13:43-0400 Body mass index (BMI) [Ratio] 20.9 kg/m2 [facility] 11-29-2023 13:43-0400 Body weight 53.52 kg [facility] 11-29-2023 13:43-0400 Diastolic blood pressure 81 mm[Hg] [facility] 11-29-2023 13:43-0400 Heart rate 109 /min [facility] 11-29-2023 13:43-0400 Systolic blood pressure 128 mm[Hg] [facility] 01-18-2023 13:00-0400 Body height 160.02 cm Crystal Rivera [employer] Other 01-18-2023 13:00-0400 Body mass index (BMI) [Ratio] 20.72 kg/m2 Crystal Jose Other [employer] Other 01-18-2023 13:00-0400 Body weight 53.07 kg Crystal Jose Other [employer] Other 01-18-2023 13:00-0400 Diastolic blood pressure 84 mm[Hg] Crystal Jose Other [employer] Other 01-18-2023 13:00-0400 Systolic blood pressure 134 mm[Hg] Crystal Jose Other [employer] Other Encounters Encounter Date Encounter Type Care Provider Facility Start: 01-07-2024 End: 01-07-2024 ambulatory Lia Marcum MD Facility:[facility] Start: 11-29-2023 End: 11-29-2023 ambulatory [facility] Work Phone: Start: 11-29-2023 End: 11-29-2023 Patient encounter procedure [facility] Work Phone: Start: 01-30-2023 End: 01-30-2023 ambulatory Crystal Jose Other [employer] Other Start: 01-30-2023 Telephone encounter Crystal Jose [facility] Start: 01-19-2023 End: 01-19-2023 ambulatory Crystal Jose Other [employer] Other Start: 01-19-2023 Telephone encounter Crystal Jose [facility] Start: 01-18-2023 End: 01-18-2023 ambulatory Crystal Jose Other [employer] Other Start: 01-18-2023 Office outpatient ne w 30 minutes Crystal Jose [facility] Start: 01-25-2022 End: 01-26-[address] [place] Facility:[facility] Start: 11-29-2021 End: 11-30-[address] [place] Facility:[facility] Start: 03-03-2021 End: 03-04-[address] [place] Facility:[facility] Start: 01-31-2021 End: 02-01-[address] [place] Facility:[facility] Plan of Treatment Date Care Activity Detail Author DXA Skeletal system. axial Views for bone density [facility] enter XR Lumbar spine 2 or 3 Views [facility] Payers Date Payer Category Payer Medicare 2023 Unknown 1957 Medicare [id number] 1957 Unknown [id number] 1950 Unknown [id number] 2.16.84 [id number] 1950 Unknown [id number] 2.16.84 [id number] 1950 Unknown [id number] 2.16.84 [id number] 1950 Unknown [id number] 2.16.84 [id number] 1950 Unknown [id number] [id number] [facility] [id number] Social History Date Type Detail Facility Unknown if ever smoked [employer] Other Sex Assigned At Sex Assigned At Bir th [employer] Other Start: 11-29-2023 Tobacco smoking status NHIS Never smoked tobacco (finding) [facility] Start: 1950 Sex Assigned At Female F [facility] Evaluation note 01-18-2023 Note Date & Type Note Facility 01-18-2023 Evaluation note Encounter Date Diagnosis Assessment Notes Jan, Piriformis syndrome of right side (ICD-10 - G57.01) Order for PT given to pt. Consider repeat xray, Neurosurgery referral. Requests short term rx of pain med. 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 [employer] Other Evaluation note Note Date & Type Note Facility Evaluation note No Information Merged With [facility] [employer] Other Evaluation note Note Date & Type Note Facility Evaluation note Diagnosis Onset Date Bilateral sacroiliitis acute Hyperglycemia acute Low vitamin D level acute Medicare annual wellness visit, subsequent acute Osteopenia acute Osteoporosis acute [facility] Work Phone: History general Narrative - Reported Note Date & Type Note Facility History general Narrative - Reported Type Medical History osteoporosis Merged With [facility] [email or web address] Other Summary Purpose Family History No Family [...] and content) DATE CREATED AUTHOR 01/28/2022 [facility] DATE CREATED AUTHOR AUTHOR'S ORGANIZ ATION 01/21/2024 [facility] REASON FOR VISIT (unrecogniz ed section and [...] BE BASED ON THE PRIMARY CLINICAL RECORDS. [facility] [employer] [facility]. provides no warranty or guarantee of the accuracy or completeness of information in this document.
--- NOTE | 2024-01-23 11:02 | P.CN_ITS ---
Consult Note: HPI Data of Consult Patient: known to practice within the last 3 years Requesting Physician: Yue Ward NP Primary Care Provider: Crystal Jose MD Consult Narrative Reason for consult: chronic low back pain Narrative: Abby Carlin 73 year old female presents for evaluation of chronic low back pain. Patient has had low back pain greater than 5 years, but worsening to constant annoying pain as of june 2023. Patient has been engaged in provider guided HEP greater than 6 weeks with mild benefit. She has recent imaging which confirms facet arthropathy, lumbar DDD, and scoliosis. Patient reporting pain 3/10 increasing to 6/10 with strenuous activity and throughout the day. Pain constant 3/10 with no improvement with tylenol and ibuprofen. denies numbness tingling weakness. Recently completed bilateral L4-5 L5-S1 MBB #2 with 100% improvement in her pain for 2 hours following the procedure, significant functional improvement. cc:: CC: Yue Ward NP Review of Systems ROS Status of ROS 10 or more systems reviewed and unremark able except as noted in history and below Musculoskeletal Reports: back pain PFSH [facility] Medical History (Updated 12/27/23 @ 11:31 by Livia Page RN) Scoliosis ?M41.9 - Scoliosis, unspecified (ICD-10) Meds Home Medications and Allergies Home Medications ?Medication ?Instructions ?Recorded ?Confirmed ?Type zneiscw-shdwiizydpihw-frxpbeqy 250 1 tab PO Q6H PRN pain 12/27/23 01/21/24 History mg-250 mg-65 mg tablet (Excedrin Extra Strength) calcitonin (salmon) 200 1 spray intranasal DAILY 12/27/23 01/21/24 History unit/actuation nasal spray calcium 600 mg-D3 800 unit-mag11 1 tab PO DAILY 12/27/23 01/21/24 History 50 fi-ukhs-jtxcjo-rita-s.borat tablet (Caltrate 600-D Plus Minerals) doxycycline hyclate 50 mg capsule 50 mg PO Q24H 12/27/23 01/21/24 History ibuprofen 200 mg tablet (Advil) 200 mg PO Q8H PRN pain 12/27/23 01/21/24 History magnesium 250 mg tablet 250 mg PO DAILY 12/27/23 01/21/24 History metronidazole 0.75 % topical gel 1 applic topical DAILY 12/27/23 01/21/24 History raloxifene 60 mg tablet 60 mg PO DAILY 12/27/23 01/21/24 History Allergies Allergy/AdvReac Type Severity Reaction Status Date / Time methylprednisolone Allergy Unknown Verified 01/21/24 08:22 Exam Constitutional Documenting provider has reviewed patient's vital signs: yes Common normals: no apparent distress, oriented x3, healthy appearing, alert and well nourished General appearance: cooperative HENMT Common normals: normocephalic, hearing grossly normal bilaterally and moist oral mucous membranes Head and scalp: normocephalic Eye Common normals: PERRL Pupil: PERRL Neck & C-Spine Common normals: full ROM General: normal visual inspection Chest Common normals: inspection of chest normal Respiratory Common normals: normal respiratory effort, no retractions and no use of accessory muscles Back & Pelvis Lumbar spine/lower back: ROM limited, pain with ROM and straight leg raise negative bilaterally Sacroiliac joints: SI joints normal Other: pain over L4-S1 facets positive facet loading bilaterally negative radiculopathy, sensation intact BLE strength 5/5 in BLE Extremity Common normals: normal to inspection and full ROM Neuro Common normals: oriented x3, CN's II-XII intact bilaterally, moves all extremities, no focal motor deficits, no sensory deficits noted, deep tendon reflexes 2+ bilaterally and gait normal Sensorium/orientation: alert Motor exam: strength 5/5 throughout and no movement abnormalities noted Psych Common normals: mental status grossly normal, thought process normal, cooperative, affect normal, speech normal and activity/motor behavior normal Speech: normal speech Thought process: normal thought process Results Additional Findings Additional findings: If on a controlled substance or opioids, I have checked an [place] report on this patient and there are no aberrancies noted in the prescribing history.??If on a controlled substance or opioid a drug screen was completed and reviewed within the last year, and if there has not been a drug screen completed we ordered one today to monitor higher risk, state monitored pain medication use. As part of providing excellent, safe, comprehensive care, the following was completed at our patient's visit: 1. A medication reconciliation and review to ensure accurate knowledge of current/active medications, including asking our patients to inform us about any yjsy-pch-mwewawa medications or herbal remedies/nutritional supplements/alternative remedies. 2. A review to specifically ensure our patients have had annual screening for screening for depression, screening for tobacco use, and screening for unhealthy alcohol use. For concerning screenings had a discussion with the patient, provided patient education, and recommended follow-up with primary care provider when appropriate. If patient noted with a risk of falling, they received education on strength, gait, and balance training to prevent future risk of falling. Assessment and Plan Assessment and Plan (1) Lumbar spondylosis: Assessment and Plan: The patient has had over 3 months of moderate to severe low back pain with functional impairment and inadequate response to conservative care including NSAIDS (unless there are contraindication such as concurrent blood thinners), multiple oral or topical pain medications, and home exercise program/physical therapy.? Patient has completed >6 weeks of guided home exercise program and/or formal physical therapy program without relief of their symptoms.? I have reviewed the imaging of the lumbar spine and no red flags were identified.? The imaging reveals radiographic findings consistent with lumbar spondylosis and lumbar facet arthropathy We discussed the risks and benefits of the procedure with the patient, and we are NOT planning on using sedation as outlined in the guidelines from Medicare unless there is a documented reason that sedation would be strongly recommended.?? ?The procedure will be completed with fluoroscopy guidance.? (2) Chronic bilateral low back pain: (3) Spasm of right piriformis muscle: Plan proceed with bilateral L4-5 L5-S1 facet medial branch thermal RFA continue HEP as tolerated continue current medications f/u 1 month after RFA complete
== END 2024-01-23 10:46 | disposition home or self-care (01) ==
LOC: PM 10:46
PROVIDERS: PCP Family Medicine; Visit Provider Nurse Practitioner
DX: M47.816 Spondylosis without myelopathy or radiculopathy, lumbar region (principal); M54.50 Low back pain, unspecified; M62.838 Other muscle spasm
CPT/HCPCS: G0463

== ENCOUNTER 2024-01-28 10:29 | Day surgery (SDC) | payer MEDICARE, OTHER, SELFPAY ==
--- OUTSIDE RECORDS SUMMARY | 2024-01-28 10:47 | XMS_ITS | CCD ---
Author Organization [facility] Care Team Providers Care Strategic Account Director Name Role Phone HOUSE, DR PICKARD [...] (3 sources) methylPREDNISolone Drug Allergy bad reaction [facility] [employer] Other Medications Current Medications Medication Drug Class(es) [...] sources) Calcitonin Start: 11-28-2023 End: 11-29-2023 Calcitonin ([place]) Active 1 SPRAY intranasal (ALT) Daily November [...] ELLIOTT BECERRIL Date: 2022-01-26 06:54 Normal [facility] MG MAMM SCREEN 3D KING CADon 01-25-2022 MG MAMM SCREEN 3D KING CAD Patient: ABBY STAHL Exam Date: 01/25/2022 : 1950 Gender:F Ordering : DR MELLY OH D.O. Admission #: [id number] Family : Order #: [id number] CLICK HERE TO VIEW EXAM RADIOLOGY REPORT [...] Treatments None Family Cancers None LOCATION: [facility] BREAST COMPOSITION: Heterogeneously dense,which may obscure small [...] M.D. on 01/25/2022 at 13:54 Normal [facility] CBC AUTO DIFFon 11-29-2021 BASO # 0.0 103/ul Normal 0.0-0.[address] [facility] Comment on above: Performed By: #### C BC #### [facility] [address] [address] [address] Torri Gomez Basophils/100 WBC (Bld) 0.7 % Normal 0.2-2.[address] [facility] Comment on above: Performed By: #### C BC #### [facility] [address] [place] [address] Dr. Torri Gomez EO # 0.1 103/ul Normal 0.0-0.7 [facility] Comment on above: Performed By: #### C BC #### [facility] [address] [place] [address] Dr. Torri Gomez Eosinophils/100 WBC (Bld) 2.4 % Normal 0.9-7.0 [facility] Comment on above: Performed By: #### C BC #### [facility] [address] [place] [address] Dr. Torri Gomez Erythrocyte distribution width (RBC) [Ratio] 11.7 % Normal 11.0-15.[address] [facility] Comment on above: Performed By: #### C BC #### [facility] [address] [place] [address] Dr. Torri Gomez Hematocrit (Bld) [Volume fraction] 43.5 % Normal 36.0-48.[address] [facility] Comment on above: Performed By: #### C BC #### [facility] [address] [place] [address] Dr. Torri Gomez Hemoglobin (Bld) [Mass/Vol] 14.2 g/dL Normal 12.0-16.[address] [facility] Comment on above: Performed By: #### C BC #### [facility] [address] [place] [address] Dr. Torri Gomez IG # 0.01 10e3/ul Normal 0.00-0.[address] [facility] Comment on above: Performed By: #### C BC #### [facility] [address] [place] [address] Dr. Torri Gomez IG % 0.2 % Normal 0.0-0.5 [facility] Comment on above: Performed By: #### C BC #### [facility] [address] [place] [address] Dr. Torri Gomez LYMPH # 1.5 103/ul Normal 1.2-3.8 [facility] Comment on above: Performed By: #### C BC #### [facility] [address] [place] [address] Dr. Torri Gomez Lymphocytes/100 WBC (Bld) 35.6 % Normal 20.5-60.0 [facility] Comment on above: Performed By: #### C BC #### [facility] [address] [place] [address] Dr. Torri Gomez MANUAL DIFF REQ NO Normal [facility] Comment on above: Performed By: #### C BC #### [facility] [address] [place] [address] Dr. Torri Gomez MCH (RBC) [Entitic mass] 32.3 pg Normal 26.7-34.0 [facility] Comment on above: Performed By: #### C BC #### [facility] [address] [place] [address] Dr. Torri Gomez MCHC (RBC) [Mass/Vol] 32.6 g/dL Normal 29.9-35.2 [facility] Comment on above: Performed By: #### C BC #### [facility] [address] [place] [address] Dr. Torri Gomez MCV (RBC) [Entitic vol] 98.9 fL Normal 81.0-99.0 [facility] Comment on above: Performed By: #### C BC #### [facility] [address] [place] [address] Dr. Torri Gomez MONO # 0.4 103/ul Normal 0.3-0.8 [facility] Comment on above: Performed By: #### C BC #### [facility] [address] [place] [address] Dr. Torri Gomez Monocytes/100 WBC (Bld) 9.8 % Normal 1.7-12.0 [facility] Comment on above: Performed By: #### C BC #### [facility] [address] [place] [address] Dr. Torri Gomez NEUT # 2.2 103/ul Normal 1.4-6.5 [facility] Comment on above: Performed By: #### C BC #### [facility] [address] [place] [address] Dr. Torri Gomez Neutrophils/100 WBC (Bld) 51.3 % Normal 43.0-75.[address] [facility] Comment on above: Performed By: #### C BC #### [facility] [address] [place] [address] Dr. Torri Gomez Platelet mean volume (Bld) [Entitic vol] 10.4 fL Normal 9.5-13.[address] [facility] Comment on above: Performed By: #### C BC #### [facility] [address] [place] [address] Dr. Torri Gomez PLT 269 103/ul Normal 150-450 [facility] Comment on above: Performed By: #### C BC #### [facility] [address] [place] [address] Dr. Torri Gomez RBC 4.40 106/ul Normal 4.20-5.[address] [facility] Comment on above: Performed By: #### C BC #### [facility] [address] [place] [address] Dr. Torri Gomez WBC 4.2 103/ul Normal 4.0-11.[address] [facility] Comment on above: Performed By: #### C BC #### [facility] [address] [place] [address] Dr. Torri Gomez GLYCOHEMOGLOBIN A1Con 2021 ADA RECOMMENDATION SEE BELOW Normal [facility] Comment on above: Result Comment: ADA RECOMMENDED LIMIT 4.0 - 6.0 ADA THERAPEUTIC TARGET < 7.0 ACTION SUGGESTED > 7.0 Performed By: #### Danielle CORNEJO, CMP #### [facility] [address] [place] [address] Jesi Rachna Glucose [Mass/Vol] 120 mg/dL Normal [facility] Comment on above: Performed By: #### Danielle CORNEJO, CMP #### [facility] [address] [place] [address] Jesi Rachna HbA1c (Bld) [Mass fraction] 5.8 % Normal 4.5-6.[address] [facility] Comment on above: Performed By: #### Danielle CORNEJO, CMP #### [facility] [address] [address] Jesi Briscoe LIPID PROFILEon 11-29-2021 CHOL-HDL RATIO NORM SEE BELOW Normal [facility] Comment on above: Result Comment: 3.3 - 4.4 LOW RISK 4.4 - 7.1 AVERAGE RISK 7.1 - 11.0 MODERATE RISK >11.0 HIGH RISK Performed By: #### T 4, LIPID, TSH, CMP #### [facility] [address] [address] [address] Torri Gomez Cholesterol [Mass/Vol] 198 mg/dL Normal <=[address] [facility] Comment on above: Performed By: #### T 4, LIPID, TSH, CMP #### [facility] [address] [place] [address] Dr. Torri Gomez Cholesterol in HDL [Mass/Vol] 79 mg/dL Critically high 40-[address] [facility] Comment on above: Performed By: #### T 4, LIPID, TSH, CMP #### [facility] [address] [address] [address] Torri Gomez Cholesterol in LDL [Mass/Vol] 101.0 mg/dL Normal [facility] Comment on above: Performed By: #### T 4, LIPID, TSH, CMP #### [facility] [address] [address] [address] Torri Gomez Cholesterol.total/Cho lesterol in HDL [Mass ratio] 2.5 {ratio} Normal [facility] Comment on above: Performed By: #### T 4, LIPID, TSH, CMP #### [facility] [address] [address] [address] Torri Gomez HDL NORMAL > or = 60 mg/dl - LO W CARDIOVASCULAR RISK <40 mg/dl - HIGH CARDIOVASCULAR RISK Normal [facility] Comment on above: Performed By: #### T 4, LIPID, TSH, CMP #### [facility] [address] [place] [address] Dr. Torri Gomez LDL CALC NORMAL SEE BELOW Normal [facility] Comment on above: Result Comment: <100 mg/dl OPTIMAL 100 - 129 mg/dl NEAR OR ABOVE OPTIMAL 130 - 159 mg/dl BORDERLINE HIGH 160 - 189 mg/dl HIGH >190 mg/dl VERY HIGH Performed By: #### T 4, LIPID, TSH, CMP #### [facility] [address] [address] [address] Torri Gomez Triglyceride [Mass/Vol] 90 mg/dL Normal <=[address] [facility] Comment on above: Performed By: #### T 4, LIPID, TSH, CMP #### [facility] [address] [address] [address] Torri Gomez VLDL CALC 18.0 mg/dL Normal [facility] Comment on above: Performed By: #### T 4, LIPID, TSH, CMP #### [facility] [address] [place] [address] Dr. Torri Gomez PROF 14(COMP METB)on 022 Albumin [Mass/Vol] 4.1 g/dL Normal 3.4-5.0 [facility] Comment on above: Performed By: #### T 4, LIPID, TSH, CMP #### [facility] [address] [place] [address] Dr. Torri Gomez Albumin/Globulin [Mass ratio] 1.2 {ratio} Normal [facility] Comment on above: Performed By: #### T 4, LIPID, TSH, CMP #### [facility] [address] [place] [address] Dr. Torri Gomez ALP [Catalytic activity/Vol] 88 U/L Normal 46-[address] [facility] Comment on above: Performed By: #### T 4, LIPID, TSH, CMP #### [facility] [address] [place] [address] Dr. Torri Gomez ALT [Catalytic activity/Vol] 22 U/L Normal 14-[address] [facility] Comment on above: Performed By: #### T 4, LIPID, TSH, CMP #### [facility] [address] [place] [address] Dr. Torri Gomez Anion gap [Moles/Vol] 13.6 mmol/L Normal [facility] Comment on above: Performed By: #### T 4, LIPID, TSH, CMP #### [facility] [address] [place] [address] Dr. Torri Gomez AST [Catalytic activity/Vol] 18 U/L Normal 15-[address] [facility] Comment on above: Performed By: #### T 4, LIPID, TSH, CMP #### [facility] [address] [address] [address] Torri Gomez Bilirubin [Mass/Vol] 0.5 mg/dL Normal 0.2-1.[address] [facility] Comment on above: Performed By: #### T 4, LIPID, TSH, CMP #### [facility] [address] [address] [address] Torri Gomez Calcium [Mass/Vol] 9.1 mg/dL Normal 8.5-10.1 [facility] Comment on above: Performed By: #### T 4, LIPID, TSH, CMP #### [facility] [address] [address] [address] Torri Gomez Chloride [Moles/Vol] 104 mmol/L Normal 98-107 [facility] Comment on above: Performed By: #### T 4, LIPID, TSH, CMP #### [facility] [address] [address] [address] Torri Gomez CO2 [Moles/Vol] 26.8 mmol/L Normal 21.0-32.0 [facility] Comment on above: Performed By: #### T 4, LIPID, TSH, CMP #### [facility] [address] [address] [address] Torri Gomez Creatinine [Mass/Vol] 1.06 mg/dL Critically high 0.55-1.[address] [facility] Comment on above: Performed By: #### T 4, LIPID, TSH, CMP #### [facility] [address] [address] [address] Torri Gomez EGFR-AF TURKMEN >60 Normal >=60 [facility] Comment on above: Performed By: #### T 4, LIPID, TSH, CMP #### [facility] [address] [address] [address] Torri Gomez EGFR-NON AF TURKMEN 51 mL/min/1.73m2 Critically low >=[address] [facility] Comment on above: Performed By: #### T 4, LIPID, TSH, CMP #### [facility] [address] [address] [address] Torri Gomez Globulin (S) [Mass/Vol] 3.4 g/dL Normal [facility] Comment on above: Performed By: #### T 4, LIPID, TSH, CMP #### [facility] [address] [address] [address] Torri Gomez Glucose [Mass/Vol] 93 mg/dL Normal 74-106 [facility] Comment on above: Performed By: #### T 4, LIPID, TSH, CMP #### [facility] [address] [address] [address] Torri Gomez Potassium [Moles/Vol] 4.4 mmol/L Normal 3.5-5.1 [facility] Comment on above: Performed By: #### T 4, LIPID, TSH, CMP #### [facility] [address] [place] [address] Dr. Torri Gomez Protein [Mass/Vol] 7.5 g/dL Normal 6.4-8.2 [facility] Comment on above: Performed By: #### T 4, LIPID, TSH, CMP #### [facility] [address] [place] [address] Dr. Torri Gomez Sodium [Moles/Vol] 140 mmol/L Normal 136-145 [facility] Comment on above: Performed By: #### T 4, LIPID, TSH, CMP #### [facility] [address] [address] [address] Torri Gomez Urea nitrogen [Mass/Vol] 21.0 mg/dL Critically high 7.0-18.0 [facility] Comment on above: Performed By: #### T 4, LIPID, TSH, CMP #### [facility] [address] [place] [address] Dr. Torri Gomez Urea nitrogen/Creatinine [Mass ratio] 19.8 mg/mg Normal [facility] Comment on above: Performed By: #### T 4, LIPID, TSH, CMP #### [facility] [address] [place] [address] Dr. Torri Gomez T4on 11-29-2021 T4 [Mass/Vol] 6.70 ug/dL Normal 4.80-13.90 [facility] Comment on above: Performed By: #### M CHANTAL, CMP #### [facility] [address] [place] [address] Jesisanaz Lamaren TSHon 11-29-2021 TSH 2.359 uIU/mL Normal 0.358-3.740 [facility] Comment on above: Performed By: #### T 4, LIPID, TSH, CMP #### [facility] [address] [place] [address] Dr. Torri Gomez VITAMIN D 25 OHon 11-29-2021 VIT D 25-OH 70.8 ng/mL Normal [facility] Comment on above: Performed By: #### Danielle CORNEJO, CMP #### [facility] [address] [place] [address] Jesi Rachna VIT D RANGES SEE BELOW Normal [facility] Comment on above: Result Comment: <20 ng/mL Vit D deficient 20 - <30 ng/mL Vit D insufficient 30 - 100 ng/mL Vit D sufficient >100 ng/mL Potential Toxicity Performed By: #### Danielle CORNEJO, CMP #### [facility] [address] [place] [address] Jesi Briscoe PROF 14(COMP METB)on 021 Albumin [Mass/Vol] 4.0 g/dL Normal 3.5-5.0 [facility] Comment on above: Performed By: #### C MP #### [facility] [address] [place] [address] Dr. Torri Gomez Albumin/Globulin [Mass ratio] 1.2 {ratio} Normal [facility] Comment on above: Performed By: #### C MP #### [facility] [address] [place] [address] Dr. Torri Gomez ALP [Catalytic activity/Vol] 83 U/L Normal 38-[address] [facility] Comment on above: Performed By: #### C MP #### [facility] [address] [place] [address] Dr. Torri Gomez ALT [Catalytic activity/Vol] 16 U/L Normal 9-[address] [facility] Comment on above: Performed By: #### C MP #### [facility] [address] [address] [address] Torri Gomez Anion gap [Moles/Vol] 13.9 mmol/L Normal [facility] Comment on above: Performed By: #### C MP #### [facility] [address] [address] [address] Torri Gomez AST [Catalytic activity/Vol] 28 U/L Normal 14-[address] [facility] Comment on above: Performed By: #### C MP #### [facility] [address] [address] [address] Torri Gomez Bilirubin [Mass/Vol] 0.6 mg/dL Normal 0.2-1.[address] [facility] Comment on above: Performed By: #### C MP #### [facility] [address] [address] [address] Torri Gomez Calcium [Mass/Vol] 9.1 mg/dL Normal 8.4-10.2 [facility] Comment on above: Performed By: #### C MP #### [facility] [address] [address] [address] Torri Gomez Chloride [Moles/Vol] 103 mmol/L Normal 98-[address] [facility] Comment on above: Performed By: #### C MP #### [facility] [address] [address] [address] Torri Gomez CO2 [Moles/Vol] 25.1 mmol/L Normal 22.0-30.0 [facility] Comment on above: Performed By: #### C MP #### [facility] [address] [address] [address] Torri Gomez Creatinine [Mass/Vol] 1.07 mg/dL Critically high 0.52-1.[address] [facility] Comment on above: Performed By: #### C MP #### [facility] [address] [address] [address] Torri Gomez EGFR-AF TURKMEN >60 Normal >=60 [facility] Comment on above: Performed By: #### C MP #### [facility] [address] [address] [address] Torri Gomez EGFR-NON AF TURKMEN 51 mL/min/1.73m2 Critically low >=[address] [facility] Comment on above: Performed By: #### C MP #### [facility] [address] [address] [address] Torri Gomez Globulin (S) [Mass/Vol] 3.4 g/dL Normal [facility] Comment on above: Performed By: #### C MP #### [facility] [address] [address] [address] Torri Gomez Glucose [Mass/Vol] 131 mg/dL Critically high 74-106 [facility] Comment on above: Performed By: #### C MP #### [facility] [address] [address] [address] Torri Gomez Potassium [Moles/Vol] 5.0 mmol/L Normal 3.4-5.[address] [facility] Comment on above: Performed By: #### C MP #### [facility] [address] [address] [address] Torri Gomez Protein [Mass/Vol] 7.4 g/dL Normal 6.1-8.2 [facility] Comment on above: Performed By: #### C MP #### [facility] [address] [address] [address] Torri Gomez Sodium [Moles/Vol] 137 mmol/L Normal 137-145 [facility] Comment on above: Performed By: #### C MP #### [facility] [address] [address] [address] Torri Gomez Urea nitrogen [Mass/Vol] 26.0 mg/dL Critically high 7.0-17.[address] [facility] Comment on above: Performed By: #### C MP #### [facility] [address] [address] [address] Torri Gomez Urea nitrogen/Creatinine [Mass ratio] 24.3 mg/mg Normal [facility] Comment on above: Performed By: #### C MP #### [facility] [address] [place], [place] [address] Dr. Torri Gomez CBC AUTO DIFFon 01-31-2021 BASO # 0.0 103/ul Normal 0.0-0.[address] [facility] Comment on above: Performed By: #### C BC #### [facility] [address] [id number] Jesi Rachna Basophils/100 WBC (Bld) 0.4 % Normal 0.2-2.[address] [facility] Comment on above: Performed By: #### C BC #### [facility] [address] [id number] Jesi Rachna EO # 0.0 103/ul Normal 0.0-0.[address] [facility] Comment on above: Performed By: #### C BC #### [facility] [address] [address] Jesi Rachna Eosinophils/100 WBC (Bld) 0.6 % Critically low 0.9-7.[address] [facility] Comment on above: Performed By: #### C BC #### [facility] [address] [place], [place] [id number] Jesi Rachna Erythrocyte distribution width (RBC) [Ratio] 11.9 % Normal 11.0-15.[address] [facility] Comment on above: Performed By: #### C BC #### [facility] [address] [address] Jesi Rachna Hematocrit (Bld) [Volume fraction] 38.5 % Normal 36.0-48.[address] [facility] Comment on above: Performed By: #### C BC #### [facility] [address] [id number] Jesi Rachna Hemoglobin (Bld) [Mass/Vol] 12.1 g/dL Normal 12.0-16.[address] [facility] Comment on above: Performed By: #### C BC #### [facility] [address] [address] Jesi Rachna IG # 0.01 10e3/ul Normal 0.00-0.03 [facility] Comment on above: Performed By: #### C BC #### [facility] [address] [place], [place] [id number] Jesi Rachna IG % 0.1 % Normal 0.0-0.[address] [facility] Comment on above: Performed By: #### C BC #### [facility] [address] [place], [place] [id number] Jesi Rachna LYMPH # 1.7 103/ul Normal 1.2-3.8 [facility] Comment on above: Performed By: #### C BC #### [facility] [address] [place], [place] [id number] Jesisanaz Briscoe Lymphocytes/100 WBC (Bld) 26.1 % Normal 20.5-60.[address] [facility] Comment on above: Performed By: #### C BC #### [facility] [address] [place] [address] Jesisanaz Briscoe MANUAL DIFF REQ NO Normal [facility] Comment on above: Performed By: #### C BC #### [facility] [address] [place], [place] [id number] Jesisanaz Briscoe MCH (RBC) [Entitic mass] 31.8 pg Normal 26.7-34.[address] [facility] Comment on above: Performed By: #### C BC #### [facility] [address] [place], [place] [id number] Jesisanaz Briscoe MCHC (RBC) [Mass/Vol] 31.4 g/dL Normal 29.9-35.2 [facility] Comment on above: Performed By: #### C BC #### [facility] [address] [place], [place] [id number] Jesi Rachna MCV (RBC) [Entitic vol] 101.0 fL Critically high 81.0-99.0 [facility] Comment on above: Performed By: #### C BC #### [facility] [address] [place] [address] Jesi Rachna MONO # 0.4 103/ul Normal 0.3-0.8 [facility] Comment on above: Performed By: #### C BC #### [facility] [address] [id number] Jesi Rachna Monocytes/100 WBC (Bld) 5.2 % Normal 1.7-12.0 [facility] Comment on above: Performed By: #### C BC #### [facility] [address] [place], [place] [phone] Jesisanaz Lamaren NEUT # 4.5 103/ul Normal 1.4-6.5 [facility] Comment on above: Performed By: #### C BC #### [facility] [address] [place], [place] [phone] Jesi Rachna Neutrophils/100 WBC (Bld) 67.6 % Normal 43.0-75.0 [facility] Comment on above: Performed By: #### C BC #### [facility] [address] [place], [place] [phone] Jesisanaz Briscoe Platelet mean volume (Bld) [Entitic vol] 10.3 fL Normal 9.5-13.5 [facility] Comment on above: Performed By: #### C BC #### [facility] [address] [place], [place] [phone] Jesi Rachna PLT 329 103/ul Normal 150-450 [facility] Comment on above: Performed By: #### C BC #### [facility] [address] [place], [place] [phone] Jesi Rachna RBC 3.81 106/ul Critically low 4.20-5.40 [facility] Comment on above: Performed By: #### C BC #### [facility] [address] [place], [place] [id number] Jesi Rachna WBC 6.7 103/ul Normal 4.0-11.0 [facility] Comment on above: Performed By: #### C BC #### [facility] [address] [place], [place] [id number] Jesi Rachna MYOGLOBINon 01-31-2021 JIMBO 44.0 ng/mL Normal <=61.5 [facility] Comment on above: Performed By: #### M CHANTAL CMP #### [facility] [address] [place], [place] [id number] Jesi Rachna PROF 14(COMP METB)on 021 Albumin [Mass/Vol] 3.7 g/dL Normal 3.5-5.0 [facility] Comment on above: Performed By: #### Danielle CORNEJO, CMP #### [facility] [address] [place] [address] Jesi Rachna Albumin/Globulin [Mass ratio] 0.9 {ratio} Normal [facility] Comment on above: Performed By: #### Danielle CORNEJO, CMP #### [facility] [address] [place] [address] Jesi Rachna ALP [Catalytic activity/Vol] 81 U/L Normal 38-[address] [facility] Comment on above: Performed By: #### Danielle CORNEJO, CMP #### [facility] [address] [place] [address] Jesi Rachna ALT [Catalytic activity/Vol] 17 U/L Normal 9-[address] [facility] Comment on above: Performed By: #### Danielle CORNEJO, CMP #### [facility] [address] [place] [address] Jesi Rachna Anion gap [Moles/Vol] 15.1 mmol/L Normal [facility] Comment on above: Performed By: #### Danielle CORNEJO, CMP #### [facility] [address] [place] [address] Jesi Rachna AST [Catalytic activity/Vol] 26 U/L Normal 14-[address] [facility] Comment on above: Performed By: #### Danielle CORNEJO, CMP #### [facility] [address] [place] [address] Jesi Rachna Bilirubin [Mass/Vol] 0.3 mg/dL Normal 0.2-1.[address] [facility] Comment on above: Performed By: #### Danielle CORNEJO, CMP #### [facility] [address] [place], [place] [id number] Jesi Rachna Calcium [Mass/Vol] 9.4 mg/dL Normal 8.4-10.2 [facility] Comment on above: Performed By: #### Danielle CORNEJO, CMP #### [facility] [address] [place], [place] [id number] Jesi Rachna Chloride [Moles/Vol] 104 mmol/L Normal 98-[address] [facility] Comment on above: Performed By: #### M YO, CMP #### [facility] [address] [place] [address] Jesi Rachna CO2 [Moles/Vol] 26.0 mmol/L Normal 22.0-30.0 [facility] Comment on above: Performed By: #### M YO, CMP #### [facility] [address] [place] [address] Jesi Rachna Creatinine [Mass/Vol] 1.21 mg/dL Critically high 0.52-1.[address] [facility] Comment on above: Performed By: #### M YO, CMP #### [facility] [address] [place] [address] Jesi Rachna EGFR-AF TURKMEN 54 mL/min/1.73m2 Critically low >=[address] [facility] Comment on above: Performed By: #### M YO, CMP #### [facility] [address] [place] [address] Jesi Rachna EGFR-NON AF TURKMEN 44 mL/min/1.73m2 Critically low >=[address] [facility] Comment on above: Performed By: #### M YO, CMP #### [facility] [address] [place] [address] Jesi Rachna Globulin (S) [Mass/Vol] 3.9 g/dL Normal [facility] Comment on above: Performed By: #### M YO, CMP #### [facility] [address] [place] [address] Jesi Rachna Glucose [Mass/Vol] 138 mg/dL Critically high 74-106 [facility] Comment on above: Performed By: #### M YO, CMP #### [facility] [address] [place] [address] Jesi Rachna Potassium [Moles/Vol] 4.1 mmol/L Normal 3.4-5.[address] [facility] Comment on above: Performed By: #### M YO, CMP #### [facility] [address] [place] [address] Jesi Rachna Protein [Mass/Vol] 7.6 g/dL Normal 6.1-8.2 [facility] Comment on above: Performed By: #### Danielle CORNEJO, CMP #### [facility] [address] [id number] Jesi Rachna Sodium [Moles/Vol] 141 mmol/L Normal 137-145 [facility] Comment on above: Performed By: #### Danielle CORNEJO, CMP #### [facility] [address] [id number] Jesi Rachna Urea nitrogen [Mass/Vol] 19.0 mg/dL Critically high 7.0-17.[address] [facility] Comment on above: Performed By: #### Danielle CORNEJO, CMP #### [facility] [address] [id number] Jesi Rachna Urea nitrogen/Creatinine [Mass ratio] 15.7 mg/mg Normal [facility] Comment on above: Performed By: #### Danielle CORNEJO, CMP #### [facility] [address] [id number] Jesi Rachna SED RATE [facility] 2020 SED RATE 66 mm/hr Critically high <=30 [facility] Comment on above: Performed By: #### Danielle CORNEJO, CMP #### [facility] [address] [id number] Jesi Rachna Vital Signs Date Time Vital Sign Value Performing Clinician Facility 11-29-2023 13:43-0400 Body height 160.02 cm [facility] 11-29-2023 13:43-0400 Body mass index (BMI) [Ratio] 20.9 kg/m2 [facility] 11-29-2023 13:43-0400 Body weight 53.52 kg [facility] 11-29-2023 13:43-0400 Diastolic blood pressure 81 mm[Hg] [facility] 11-29-2023 13:43-0400 Heart rate 109 /min [facility] 11-29-2023 13:43-0400 Systolic blood pressure 128 mm[Hg] [facility] 01-18-2023 13:00-0400 Body height 160.02 cm Crystal Rivera [facility] 01-18-2023 13:00-0400 Body mass index (BMI) [Ratio] 20.72 kg/m2 Crystal Jose Other [facility] Other 01-18-2023 13:00-0400 Body weight 53.07 kg Crystal Jose Other [facility] Other 01-18-2023 13:00-0400 Diastolic blood pressure 84 mm[Hg] Crystal Jose Other [facility] Other 01-18-2023 13:00-0400 Systolic blood pressure 134 mm[Hg] Crystal Jose Other [facility] Other Encounters Encounter Date Encounter Type Care Provider Facility Start: 01-07-2024 End: 01-07-2024 ambulatory Lia Marcum MD Facility:[facility] Start: 11-29-2023 End: 11-29-2023 ambulatory [facility] Work Phone: Start: 11-29-2023 End: 11-29-2023 Patient encounter procedure Pending Sale To [facility] Work Phone: Start: 01-30-2023 End: 01-30-2023 ambulatory Crystal Jose Other [facility] Other Start: 01-30-2023 Telephone encounter Crystal Jose [facility] Start: 01-19-2023 End: 01-19-2023 ambulatory Crystal Jose Other [facility] Other Start: 01-19-2023 Telephone encounter Crystal Jose [facility] Start: 01-18-2023 End: 01-18-2023 ambulatory Crystal Jose Other [facility] Other Start: 01-18-2023 Office outpatient ne w 30 minutes Crystal Jose [facility] Start: 01-25-2022 End: 01-26-[address] [place] Facility:[facility] Start: 11-29-2021 End: 11-30-[address] [place] Facility:[facility] Start: 03-03-2021 End: 03-04-[address] [place] Facility:[facility] Start: 01-31-2021 End: 02-01-[address] [place] Facility:[facility] Plan of Treatment Date Care Activity Detail Author DXA Skeletal system. axial Views for bone density [facility] enter XR Lumbar spine 2 or [facility] Payers Date Payer Category Payer Medicare 2023 Unknown 1959 Medicare [id number] 1959 Unknown [id number] 1950 Unknown [id number] 2.16.84 [id number] 1950 Unknown [id number] 2.16.84 [id number] 1950 Unknown [id number] 2.16.84 [id number] 1950 Unknown [id number] 2.16.84 [id number] 1950 Unknown [id number] [id number]. [id number] Unknown [facility] [id number] Social History Date Type Detail Facility Unknown if ever smoked [facility] Other Sex Assigned At Sex Assigned At Bir th [facility] Other Start: 11-29-2023 Tobacco smoking status NHIS Never smoked tobacco (finding) [facility] Start: 1950 Sex Assigned At Female F [facility] Evaluation note 01-18-2023 Note Date & Type Note Facility 01-18-2023 Evaluation note Encounter Date Diagnosis Assessment Notes Jan, Piriformis syndrome of right side (ICD-10 - G57.01) Order for PT given to pt. Consider repeat xray, Neurosurgery referral. Requests short term rx of pain med. 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 [facility] Other Evaluation note Note Date & Type Note Facility Evaluation note No Information [facility] Other Evaluation note Note Date & Type Note Facility Evaluation note Diagnosis Onset Date Bilateral sacroiliitis acute Hyperglycemia acute Low vitamin D level acute Medicare annual wellness visit, subsequent acute Osteopenia acute Osteoporosis acute [facility] Work Phone: History general Narrative - Reported Note Date & Type Note Facility History general Narrative - Reported Type Medical History osteoporosis [facility] [employer] Other Summary Purpose Family History No Family [...] and content) DATE CREATED AUTHOR 01/28/2022 [facility] DATE CREATED AUTHOR AUTHOR'S ORGANIZ ATION 01/21/2024 [facility] REASON FOR VISIT (unrecogniz ed section and [...] BE BASED ON THE PRIMARY CLINICAL RECORDS. [facility] [employer] [facility]. provides no warranty or guarantee of the accuracy or completeness of information in this document.
[2024-01-28 11:04] VITALS: BP 165/90; PULSE 78; TEMP 36.6; O2SAT 100
[2024-01-28 11:44] VITALS: BP 190/90; BP 194/91; PULSE 94; PULSE 97; O2SAT 96; O2SAT 98
[2024-01-28] MEDS: BUPIVACAINE HCL 0.25% PF 25 MG/10 ML VIAL 5 ML INJ (11:46)
[2024-01-28] MEDS: LIDOCAINE HCL 2% 400 MG/20 ML MDV 5 ML INJ (11:46)
[2024-01-28] MEDS: TRIAMCINOLONE ACETONIDE 40 MG/ML VIAL 80 MG INJ (11:47)
--- NOTE | 2024-01-28 11:59 | P.ON_ITS ---
Date of procedure: 01/28/24 Pre-op diagnosis: Pain due to lumbar spondylosis without myelopathy Post-op diagnosis: same as pre-op Procedure: Procedure: Bilateral L4-5, L5-S1 radiofrequency ablation Medications: Bupivacaine 0.25% 6cc, lidocaine 2% 6cc, kenalog 80mg The patient was seen and examined in the preoperative holding area.? The site was marked.? Written informed consent was obtained and placed on the chart.? The patient was brought to the medical procedure unit and placed in the prone position.? A timeout was completed verifying correct patient, procedure, positioning, and special requirements.? The skin overlying the target points, the designated medial branch, were prepped and draped in the usual sterile fashion.? The target point was achieved with a 20-gauge 15 cm with a 10 mm curved active tip radiofrequency cannula under direct fluoroscopic visualization.? The needle was inserted at level L4 on the right side. Needle tip position was confirmed with lateral fluoroscopic position.? Motor stimulation was carried out at 2 Hz up to 5 volts with the absence of extremity activity.? This was repeated at level L5, S1 on right side.?? Sensory stimulation was carried out.? Concordant pain was realized at the above- mentioned sites.? Then radiofrequency lesioning was carried out times 90 seconds at 80 degrees times 2 lesions at each level.? The radiofrequency probe was removed prior to cannula removal.? The above-mentioned injectate was placed in 1 mL increments.? The needle was removed. The same procedure, with the same steps, was then completed on the left side at the same levels. Insertion sites were covered.? The patient was taken to the postoperative recovery area and monitored for an appropriate length of time before being found suitable for discharge in the company of a responsible adult. Anesthesia: Local Surgeon: Lia Marcum Pathology: none sent Condition: stable Disposition: no change
== END 2024-01-28 12:04 | disposition home or self-care (01) ==
LOC: SURGOUT 10:30
PROVIDERS: PCP Family Medicine; Visit Provider Anesthesiology
DX: M47.816 Spondylosis without myelopathy or radiculopathy, lumbar region (principal)
CPT/HCPCS: 64635; 64636; J0665; J3301

== ENCOUNTER 2024-02-12 10:33 | Outpatient (OUT) | payer MEDICARE, OTHER, SELFPAY ==
--- NOTE | 2024-02-12 | MM_ITS ---
Patient Name: GALDINO STAHL MR#: [id number] : 1950 Exam Date: 02/12/2024 Ordering Doctor: DR Crystal Jose M.D. RADIOLOGY REPORT PROCEDURE: MM TOMOSYNTHESIS SCREENING BI COMPARISON: MG MAMM SCREEN 3D KING CAD, 01/25/2022. MG MAMM SCREEN KING W CAD, 10/09/2018. MG MAMM SCREEN KING W CAD, 12/06/2016. MG MAMM KING SCRN W CAD DIG, 12/03/2012. INDICATIONS: Screening for malignant neoplasm Calculator Name [facility] Breast Cancer Risk Assessment Tool 5 Year Breast Cancer Risk 1.90% Lifetime Breast Cancer Risk 5.40% Personal Breast Cancer No Personal Ovarian Cancer No Treatments None Family Cancers None LOCATION: [facility] BREAST COMPOSITION: The breasts are heterogeneously dense,which may obscure small masses. FINDINGS: DIAGNOSTIC CATEGORY 1--NEGATIVE. RIGHT BREAST: No significant suspicious finding. No significant change has occurred. LEFT BREAST: No significant suspicious finding. No significant change has occurred. RECOMMENDATIONS: ROUTINE MAMMOGRAM AND CLINICAL EVALUATION IN 12 MONTHS. PLEASE NOTE: A NORMAL MAMMOGRAM DOES NOT EXCLUDE THE POSSIBILITY OF BREAST CANCER. A CLINICALLY SUSPICIOUS PALPABLE LUMP SHOULD BE BIOPSIED. Dictated by: Elliott Becerril M.D. on 02/12/2024 at 17:14 Approved by: Elliott Becerril M.D. on 02/12/2024 at 17:16
--- NOTE | 2024-02-12 10:39 | XR_ITS ---
[address] [address] Patient Name: GALDINO STAHL MRN: [id number] date: 1950 Sex: F Assigned Patient Location: [facility] Current Patient Location: [facility] Accession/Order Number: [id number] Exam Date: 02/12/2024 10:50 Report Date: 02/12/2024 11:54 At the request of: LISA YEPEZ Procedure: XR DEXA axial skeleton EXAMINATION: XR DEXA axial skeleton HISTORY: Osteoporosis M81.0 COMPARISON: No relevant comparison available. TECHNIQUE: Dual-energy X-ray absorptiometry (DXA) was performed. FINDINGS: SPINE ANALYSIS: Average bone mineral density is 0.60 g/cm2. T-score (standard deviation relative to young adult mean): -2.7 . +0.3% change since prior study. HIP ANALYSIS: Lowest bone mineral density is within the right femoral neck, 0.671 g/cm2. T-score (standard deviation relative to young adult mean): -2.6 . XR/XR DEXA axial skeleton IMPRESSION: World Health Organization Classification: Osteoporosis - High Fracture Risk FRAX: Cannot be calculated. Pharmacologic treatment recommendations * No uniform recommendation applies to all patients. Management plans must be individualized. * Consider initiating pharmacologic treatment in postmenopausal women and men >= 50 years of age who have the following: Primary fracture prevention: * T-score <= - 2.5 at the femoral neck, total hip, lumbar spine, 33% radius (some uncertainty with existing data) by DXA. * Low bone mass (osteopenia: T-score between - 1.0 and - 2.5) at the femoral neck or total hip by DXA with a 10-year hip fracture risk >= 3% or a 10-year major osteoporosis-related fracture risk >= 20% (i.e., clinical vertebral, hip, forearm, or proximal humerus) based on the [place]-adapted FRAXregistered model. Secondary fracture prevention: * Fracture of the hip or vertebra regardless of BMD [4, 5]. * Fracture of proximal humerus, pelvis, or distal forearm in persons with low bone mass (osteopenia: T-score between - 1.0 and - 2.5). The decision to treat should be individualized in persons with a fracture of the proximal humerus, pelvis, or distal forearm who do not have osteopenia or low BMD [12, 13]. Devan MS, Carmen SL, Miguel Ángel KL, Diamond EM, Lorenzo KG, AJ, Marielle ES. The clinician's guide to prevention and treatment of osteoporosis. Osteoporos Int. 2021;33(10):2146-9763. doi: 10.1007/x88774-366-63812-k. Epub 2021Sep 29. Erratum in: Osteoporos Int. 2021Dec 29;: PMID: [id number]; PMCID: [id number]. Electronically authenticated by: LIU ANDERSON Date: 02/12/2024 11:54
== END 2024-02-12 10:34 | disposition home or self-care (01) ==
LOC: MAMMO 10:34
PROVIDERS: PCP Family Medicine; Visit Provider Family Medicine
DX: Z12.31 Encounter for screening mammogram for malignant neoplasm of breast (principal); M81.0 Age-related osteoporosis without current pathological fracture
CPT/HCPCS: 77063; 77067; 77080

== ENCOUNTER 2024-02-25 14:32 | Outpatient (OUT) | payer MEDICARE, OTHER, SELFPAY ==
--- NOTE | 2024-02-25 15:27 | PM.CN ---
Consult Note: HPI Data of Consult Patient: known to practice within the last 3 years Consult date: 02/25/24 Requesting Physician: Lia Marcum MD Primary Care Provider: Crystal Jose MD Consult Narrative Reason for consult: low back, left side pain Narrative: 73yof who presents for assessment. notes improved relief in right side of low back, but worsening pain throughout left side that describes as occasional stabbing, worst in morning. no advanced imaging available for review. is very active and continues in a series of provider directed home exercises >6 weeks, without significant benefit. uses otc pain meds as needed. cc:: CC: Lia Marcum MD Review of Systems ROS Status of ROS 10 or more systems reviewed and unremarkable except as noted in history and below [facility] Medical History Osteoporosis ?M81.0 - Age-related osteoporosis without current pathological fracture (ICD-10) Low back pain ?M54.50 - Low back pain, unspecified (ICD-10) Scoliosis ?M41.9 - Scoliosis, unspecified (ICD-10) Meds Home Medications and Allergies Home Medications ?Medication ?Instructions ?Recorded ?Confirmed ?Type hzzvrsh-srrbfhixtiagk-hoaaycur 250 1 tab PO Q6H PRN pain 12/27/23 01/21/24 History mg-250 mg-65 mg tablet (Excedrin Extra Strength) calcitonin (salmon) 200 1 spray intranasal DAILY 12/27/23 01/21/24 History unit/actuation nasal spray calcium 600 mg-D3 800 unit-mag11 1 tab PO DAILY 12/27/23 01/21/24 History 50 ow-dvny-fdornz-rita-s.borat tablet (Caltrate 600-D Plus Minerals) doxycycline hyclate 50 mg capsule 50 mg PO Q24H 12/27/23 01/21/24 History ibuprofen 200 mg tablet (Advil) 200 mg PO Q8H PRN pain 12/27/23 01/21/24 History magnesium 250 mg tablet 250 mg PO DAILY 12/27/23 01/21/24 History metronidazole 0.75 % topical gel 1 applic topical DAILY 12/27/23 01/21/24 History raloxifene 60 mg tablet 60 mg PO DAILY 12/27/23 01/21/24 History Allergies Allergy/AdvReac Type Severity Reaction Status Date / Time methylprednisolone Allergy Unknown Verified 01/21/24 08:22 Exam Narrative Exam Narrative: Psych-alert and oriented x 3. Attentive and appropriate, constitutionally normal, displays normal mood and affect per situation. There are no obvious deficits in memory, reasoning, or intellect.? Skin-no obvious rashes, bruising, erythema noted to the patient's area of pain.? Extremities- extremities are warm with minimal edema and palpable pulses. Lumbar-tenderness to palpation noted in the lumbar spine and paraspinal musculature. Pain is not elicited with flexion, extension, and lateral rotation of the lumbar spine. Range of motion is not diminished with these motions. Facet loading maneuvers are negative.? Strength-noted to be unremarkable Sensory-no notable sensory deficits in the bilateral lower extremities to touch or pinprick in all dermatomal distributions with the exception to decreased sensation to the left L4, 5 dermatomal distribution Coordination remains intact.? Gait remains non-antalgic. Assessment and Plan Assessment and Plan (1) Lumbar stenosis with neurogenic claudication: Plan 73yof who presents for assessment. failed conservative measures, as noted. given persistence of left sided pain, will have her undergo lumbar mri without contrast for further information. she is in agreement. meds reviewed, no changes. follow up after imaging.
== END 2024-02-25 14:33 | disposition home or self-care (01) ==
LOC: PM 14:32
PROVIDERS: PCP Family Medicine; Visit Provider Anesthesiology
DX: M48.062 Spinal stenosis, lumbar region with neurogenic claudication (principal)
CPT/HCPCS: G0463

== ENCOUNTER 2024-03-03 12:22 | Outpatient (OUT) | payer MEDICARE, OTHER, SELFPAY ==
--- NOTE | 2024-03-03 | MR_ITS ---
[address] [place] [id number] Patient Name: GALDINO STAHL MRN: [id number] date: 1950 Sex: F Assigned Patient Location: MRI Current Patient Location: MRI Accession/Order Number: [id number] Exam Date: 03/03/2024 12:40 Report Date: 03/03/2024 13:37 At the request of: DESHAUN INTERIANO Procedure: MR lumbar spine wo con MR lumbar spine wo con, 03/03/2024 12:40 PM EDT INDICATION: LUMBAR STENOSIS COMPARISON: Prior x-ray of lumbar spine dated 11/22/2023 TECHNIQUE: Multiplanar, multisequential MRI images of lumbar spine were obtained without contrast. FINDINGS: For dictation purposes, the lowest complete disc space in the lumbar spine considered as L5-S1. There is normal physiologic lumbar lordosis with dextroscoliosis centered on L2-L3. The vertebral height is relative the preserved. The conus medullaris is at the level of L1. No signal abnormality within the visualized spinal cord is noted. Level of T12-L1 is unremarkable. At the level of L1-L2, there are disc bulge with mild right and moderate left neuroforaminal narrowing and no canal stenosis. Type I endplate changes at this level are noted. At the level of L2-L3, there are mild retrolisthesis with disc bulge with no neuroforaminal narrowing and no canal stenosis. At the level of L3-4, there are disc bulge with mild bilateral neuroforaminal narrowing and no canal stenosis. At the level of L4-5, there are disc bulge with mild right neuroforaminal narrowing and no canal stenosis. At the level of L5-S1, there are disc bulge with no neuroforaminal narrowing and no canal stenosis. 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 The paraspinal muscles show mild fatty atrophy at the level of L4-L5 and L5-S1. MR/MR lumbar spine wo con IMPRESSION: Mild degenerative changes of lumbar spine in particular at L1-L2 and L3-4. Electronically authenticated by: NATASHA FLANAGAN Date: 03/03/2024 13:37
--- OUTSIDE RECORDS SUMMARY | 2024-03-03 12:29 | XMS_ITS | CCD ---
Author Organization [facility] Care Team Providers Care Substance Abuse Counselor Name Role Phone HOUSE, DR PICKARD Admitting Unavailable HOUSE, DR PICKARD Attending Unavailable HOUSE, DR PICKARD Consulting Unavailable HOUSE, DR PICKARD Primary Care Unavailable HOUSE, DR PICKARD Admitting Unavailable HOUSE, DR PICKARD Attending Unavailable HOUSE, DR PICKARD Consulting Unavailable WAUPUN, DR PICKARD Primary Care Unavailable MONICA, DR ELLIOTT Paredes Consulting Unavailable HOUSE, DR PICKARD Admitting Unavailable HOUSE, DR PICKARD Attending Unavailable HOUSE, DR PICKARD Consulting Unavailable WAUPUN, DR PICKARD Primary Care Unavailable WAUPUN, DR PICKARD Admitting Unavailable WAUPUN, DR PICKARD Attending Unavailable WAUPUN, DR PICKARD Consulting Unavailable HOUSE, DR PICKARD Primary Care Unavailable Crystal Jose Unavailable Gimusa NEGRETE, Lia Bartlett Attending Unavailable Givillaitis , Lia Bartlett Attending Unavailable Givillaitis , Lia Bartlett Attending Unavailable Givillaitis , Lia Bartlett Attending Unavailable Allergies Allergy Classification Reported Allergen(s) Allergy Type Date of Onset Reaction(s) Facility (3 sources) methylPREDNISolone Drug Allergy bad reaction [facility] Other Medications Current Medications Medication Drug Class(es) [...] sources) Calcitonin Start: 11-28-2023 End: 11-29-2023 Calcitonin ([place]) Active 1 SPRAY intranasal (ALT) Daily November [...] by: ELLIOTT BECERRIL Date: 2022-01-26 06:54 Normal [facility] MG MAMM SCREEN 3D KING CADon 01-25-2022 MG MAMM SCREEN 3D KING CAD Patient: ABBY STAHL Exam Date: 01/25/2022 : 1950 Gender:F Ordering : DR MELLY OH D.O. Admission #: [id number] Family : Order #: [id number] CLICK HERE TO VIEW EXAM RADIOLOGY REPORT [...] Treatments None Family Cancers None LOCATION: [facility] BREAST COMPOSITION: Heterogeneously dense,which may obscure [...] M.D. on 01/25/2022 at 13:54 Normal [facility] CBC AUTO DIFFon 11-29-2021 BASO # 0.0 103/ul Normal 0.0-0.1 [facility] Comment on above: Performed By: #### C BC #### [facility] [address] [place] [address] Dr. Torri Gomez Basophils/100 WBC (Bld) 0.7 % Normal 0.2-2.0 [facility] Comment on above: Performed By: #### C BC #### [facility] [address] [place] [address] Dr. Torri Gomez EO # 0.1 103/ul Normal 0.0-0.7 [facility] Comment on above: Performed By: #### C BC #### [facility] [address] [place] [address] Dr. Torri Gomez Eosinophils/100 WBC (Bld) 2.4 % Normal 0.9-7.0 [facility] Comment on above: Performed By: #### C BC #### [facility] [address] [place] [address] Dr. Torri Gomez Erythrocyte distribution width (RBC) [Ratio] 11.7 % Normal 11.0-15.0 [facility] Comment on above: Performed By: #### C BC #### [facility] [address] [place] [address] Dr. Torri Gomez Hematocrit (Bld) [Volume fraction] 43.5 % Normal 36.0-48.0 [facility] Comment on above: Performed By: #### C BC #### [facility] [address] [place] [address] Dr. Torri Gomez Hemoglobin (Bld) [Mass/Vol] 14.2 g/dL Normal 12.0-16.0 [facility] Comment on above: Performed By: #### C BC #### [facility] [address] [place] [address] Dr. Torri Gomez IG # 0.01 10e3/ul Normal 0.00-0.03 [facility] Comment on above: Performed By: #### C BC #### [facility] [address] [place] [address] Dr. Torri Gomez IG % 0.2 % Normal 0.0-0.5 [facility] Comment on above: Performed By: #### C BC #### [facility] [address] [place] [address] Dr. Torri Gomez LYMPH # 1.5 103/ul Normal 1.2-3.8 [facility] Comment on above: Performed By: #### C BC #### [facility] [address] [place] [address] Dr. Torri Gomez Lymphocytes/100 WBC (Bld) 35.6 % Normal 20.5-60.0 [facility] Comment on above: Performed By: #### C BC #### [facility] [address] [place] [address] Dr. Torri Gomez MANUAL DIFF REQ NO Normal [facility] Comment on above: Performed By: #### C BC #### [facility] [address] [place] [address] Dr. Torri Gomez MCH (RBC) [Entitic mass] 32.3 pg Normal 26.7-34.0 [facility] Comment on above: Performed By: #### C BC #### [facility] [address] [place] [address] Dr. Torri Gomez MCHC (RBC) [Mass/Vol] 32.6 g/dL Normal 29.9-35.2 [facility] Comment on above: Performed By: #### C BC #### [facility] [address] [place] [address] Dr. Torri Gomez MCV (RBC) [Entitic vol] 98.9 fL Normal 81.0-99.0 [facility] Comment on above: Performed By: #### C BC #### [facility] [address] [place] [address] Dr. Torri Gomez MONO # 0.4 103/ul Normal 0.3-0.8 [facility] Comment on above: Performed By: #### C BC #### [facility] [address] [place] [address] Dr. Torri Gomez Monocytes/100 WBC (Bld) 9.8 % Normal 1.7-12.0 [facility] Comment on above: Performed By: #### C BC #### [facility] [address] [place] [address] Dr. Torri Gomez NEUT # 2.2 103/ul Normal 1.4-6.5 [facility] Comment on above: Performed By: #### C BC #### [facility] [address] [place] [address] Dr. Torri Gomez Neutrophils/100 WBC (Bld) 51.3 % Normal 43.0-75.0 [facility] Comment on above: Performed By: #### C BC #### [facility] [address] [place] [address] Dr. Torri Gomez Platelet mean volume (Bld) [Entitic vol] 10.4 fL Normal 9.5-13.5 [facility] Comment on above: Performed By: #### C BC #### [facility] [address] [place] [address] Dr. Torri Gomez PLT 269 103/ul Normal 150-450 [facility] Comment on above: Performed By: #### C BC #### [facility] [address] [place] [address] Dr. Torri Gomez RBC 4.40 106/ul Normal 4.20-5.40 [facility] Comment on above: Performed By: #### C BC #### [facility] [address] [place] [address] Dr. Torri Gomez WBC 4.2 103/ul Normal 4.0-11.0 [facility] Comment on above: Performed By: #### C BC #### [facility] [address] [place] [address] Dr. Torri Gomez GLYCOHEMOGLOBIN A1Con 2021 ADA RECOMMENDATION SEE BELOW Normal [facility] Comment on above: Result Comment: ADA RECOMMENDED LIMIT 4.0 - 6.0 ADA THERAPEUTIC TARGET < 7.0 ACTION SUGGESTED > 7.0 Performed By: #### Danielle CORNEJO, CMP #### [facility] [address] [place] [address] Jesi Rachna Glucose [Mass/Vol] 120 mg/dL Normal [facility] Comment on above: Performed By: #### Danielle CORNEJO, CMP #### [facility] [address] [place] [address] Jesi Rachna HbA1c (Bld) [Mass fraction] 5.8 % Normal 4.5-6.2 [facility] Comment on above: Performed By: #### M YO, CMP #### [facility] [address] [address] Jesi Briscoe LIPID PROFILEon 11-29-2021 CHOL-HDL RATIO NORM SEE BELOW Normal [facility] Comment on above: Result Comment: 3.3 - 4.4 LOW RISK 4.4 - 7.1 AVERAGE RISK 7.1 - 11.0 MODERATE RISK >11.0 HIGH RISK Performed By: #### T 4, LIPID, TSH, CMP #### [facility] [address] [address] [address] Torri Gomez Cholesterol [Mass/Vol] 198 mg/dL Normal <=200 [facility] Comment on above: Performed By: #### T 4, LIPID, TSH, CMP #### [facility] [address] [place] [address] Dr. Torri Gomez Cholesterol in HDL [Mass/Vol] 79 mg/dL Critically high 40-60 [facility] Comment on above: Performed By: #### T 4, LIPID, TSH, CMP #### [facility] [address] [address] [address] Torri Gomez Cholesterol in LDL [Mass/Vol] 101.0 mg/dL Normal [facility] Comment on above: Performed By: #### T 4, LIPID, TSH, CMP #### [facility] [address] [address] [address] Torri Gomez Cholesterol.total/Cho lesterol in HDL [Mass ratio] 2.5 {ratio} Normal [facility] Comment on above: Performed By: #### T 4, LIPID, TSH, CMP #### [facility] [address] [address] [address] Torri Gomez HDL NORMAL > or = 60 mg/dl - LO W CARDIOVASCULAR RISK <40 mg/dl - HIGH CARDIOVASCULAR RISK Normal [facility] Comment on above: Performed By: #### T 4, LIPID, TSH, CMP #### [facility] [address] [place] [address] Dr. Torri Gomez LDL CALC NORMAL SEE BELOW Normal [facility] Comment on above: Result Comment: <100 mg/dl OPTIMAL 100 - 129 mg/dl NEAR OR ABOVE OPTIMAL 130 - 159 mg/dl BORDERLINE HIGH 160 - 189 mg/dl HIGH >190 mg/dl VERY HIGH Performed By: #### T 4, LIPID, TSH, CMP #### [facility] [address] [address] [address] Torri Gomez Triglyceride [Mass/Vol] 90 mg/dL Normal <=150 [facility] Comment on above: Performed By: #### T 4, LIPID, TSH, CMP #### [facility] [address] [address] [address] Torri Gomez VLDL CALC 18.0 mg/dL Normal [facility] Comment on above: Performed By: #### T 4, LIPID, TSH, CMP #### [facility] [address] [place] [address] Dr. Torri Gomez PROF 14(COMP METB)on 022 Albumin [Mass/Vol] 4.1 g/dL Normal 3.4-5.0 [facility] Comment on above: Performed By: #### T 4, LIPID, TSH, CMP #### [facility] [address] [address] [address] Torri Gomez Albumin/Globulin [Mass ratio] 1.2 {ratio} Normal [facility] Comment on above: Performed By: #### T 4, LIPID, TSH, CMP #### [facility] [address] [address] [address] Torri Gomez ALP [Catalytic activity/Vol] 88 U/L Normal 46-116 [facility] Comment on above: Performed By: #### T 4, LIPID, TSH, CMP #### [facility] [address] [address] [address] Torri Gomez ALT [Catalytic activity/Vol] 22 U/L Normal 14-59 [facility] Comment on above: Performed By: #### T 4, LIPID, TSH, CMP #### [facility] [address] [address] [address] Torri Gomez Anion gap [Moles/Vol] 13.6 mmol/L Normal [facility] Comment on above: Performed By: #### T 4, LIPID, TSH, CMP #### [facility] [address] [place] [address] Dr. Torri Gomez AST [Catalytic activity/Vol] 18 U/L Normal 15-37 [facility] Comment on above: Performed By: #### T 4, LIPID, TSH, CMP #### [facility] [address] [place] [address] Dr. Torri Gomez Bilirubin [Mass/Vol] 0.5 mg/dL Normal 0.2-1.0 [facility] Comment on above: Performed By: #### T 4, LIPID, TSH, CMP #### [facility] [address] [place] [address] Dr. Torri Gomez Calcium [Mass/Vol] 9.1 mg/dL Normal 8.5-10.1 [facility] Comment on above: Performed By: #### T 4, LIPID, TSH, CMP #### [facility] [address] [place] [address] Dr. oTrri Gomez Chloride [Moles/Vol] 104 mmol/L Normal 98-107 [facility] Comment on above: Performed By: #### T 4, LIPID, TSH, CMP #### [facility] [address] [place] [address] Dr. Torri Gomez CO2 [Moles/Vol] 26.8 mmol/L Normal 21.0-32.0 [facility] Comment on above: Performed By: #### T 4, LIPID, TSH, CMP #### [facility] [address] [place] [address] Dr. Torri Gomez Creatinine [Mass/Vol] 1.06 mg/dL Critically high 0.55-1.02 [facility] Comment on above: Performed By: #### T 4, LIPID, TSH, CMP #### [facility] [address] [place] [address] Dr. Torri Gomez EGFR-AF FIJIAN >60 Normal >=60 [facility] Comment on above: Performed By: #### T 4, LIPID, TSH, CMP #### [facility] [address] [address] [address] Torri Gomez EGFR-NON AF FIJIAN 51 mL/min/1.73m2 Critically low >=60 [facility] Comment on above: Performed By: #### T 4, LIPID, TSH, CMP #### [facility] [address] [address] [address] Torri Gomez Globulin (S) [Mass/Vol] 3.4 g/dL Normal [facility] Comment on above: Performed By: #### T 4, LIPID, TSH, CMP #### [facility] [address] [address] [address] Torri Gomez Glucose [Mass/Vol] 93 mg/dL Normal 74-106 [facility] Comment on above: Performed By: #### T 4, LIPID, TSH, CMP #### [facility] [address] [place] [address] Dr. Torri Gomez Potassium [Moles/Vol] 4.4 mmol/L Normal 3.5-5.1 [facility] Comment on above: Performed By: #### T 4, LIPID, TSH, CMP #### [facility] [address] [address] [address] Torri Gomez Protein [Mass/Vol] 7.5 g/dL Normal 6.4-8.2 [facility] Comment on above: Performed By: #### T 4, LIPID, TSH, CMP #### [facility] [address] [address] [address] Torri Gomez Sodium [Moles/Vol] 140 mmol/L Normal 136-145 [facility] Comment on above: Performed By: #### T 4, LIPID, TSH, CMP #### [facility] [address] [address] [address] Torri Gomez Urea nitrogen [Mass/Vol] 21.0 mg/dL Critically high 7.0-18.0 [facility] Comment on above: Performed By: #### T 4, LIPID, TSH, CMP #### [facility] [address] [address] [address] Torri Gomez Urea nitrogen/Creatinine [Mass ratio] 19.8 mg/mg Normal [facility] Comment on above: Performed By: #### T 4, LIPID, TSH, CMP #### [facility] [address] [place] [address] Dr. Torri Gomez T4on 11-29-2021 T4 [Mass/Vol] 6.70 ug/dL Normal 4.80-13.90 [facility] Comment on above: Performed By: #### M YO, CMP #### [facility] [address] [place] [address] Jesi Briscoe TSHon 11-29-2021 TSH 2.359 uIU/mL Normal 0.358-3.740 [facility] Comment on above: Performed By: #### T 4, LIPID, TSH, CMP #### [facility] [address] [place] [address] Dr. Torri Gomez VITAMIN D 25 OHon 11-29-2021 VIT D 25-OH 70.8 ng/mL Normal [facility] Comment on above: Performed By: #### M CHANTAL, CMP #### [facility] [address] [place] [address] Jesi Briscoe VIT D RANGES SEE BELOW Normal [facility] Comment on above: Result Comment: <20 ng/mL Vit D deficient 20 - <30 ng/mL Vit D insufficient 30 - 100 ng/mL Vit D sufficient >100 ng/mL Potential Toxicity Performed By: #### Danielle CORNEJO, CMP #### [facility] [address] [place] [address] Jesi Briscoe PROF 14(COMP METB)on 021 Albumin [Mass/Vol] 4.0 g/dL Normal 3.5-5.0 [facility] Comment on above: Performed By: #### C MP #### [facility] [address] [place] [address] Dr. Torri Gomez Albumin/Globulin [Mass ratio] 1.2 {ratio} Normal [facility] Comment on above: Performed By: #### C MP #### [facility] [address] [place] [address] Dr. Torri Gomez ALP [Catalytic activity/Vol] 83 U/L Normal 38-126 [facility] Comment on above: Performed By: #### C MP #### [facility] [address] [place] [address] Dr. Torri Gomez ALT [Catalytic activity/Vol] 16 U/L Normal 9-52 [facility] Comment on above: Performed By: #### C MP #### [facility] [address] [address] [address] Torri Gomez Anion gap [Moles/Vol] 13.9 mmol/L Normal [facility] Comment on above: Performed By: #### C MP #### [facility] [address] [address] [address] Torri Gomez AST [Catalytic activity/Vol] 28 U/L Normal 14-36 [facility] Comment on above: Performed By: #### C MP #### [facility] [address] [place] [address] Dr. Torri Gomez Bilirubin [Mass/Vol] 0.6 mg/dL Normal 0.2-1.3 [facility] Comment on above: Performed By: #### C MP #### [facility] [address] [address] [address] Torri Gomez Calcium [Mass/Vol] 9.1 mg/dL Normal 8.4-10.2 [facility] Comment on above: Performed By: #### C MP #### [facility] [address] [address] [address] Torri Gomez Chloride [Moles/Vol] 103 mmol/L Normal 98-107 [facility] Comment on above: Performed By: #### C MP #### [facility] [address] [address] [address] Torri Gomez CO2 [Moles/Vol] 25.1 mmol/L Normal 22.0-30.0 [facility] Comment on above: Performed By: #### C MP #### [facility] [address] [place] [address] Dr. Torri Gomez Creatinine [Mass/Vol] 1.07 mg/dL Critically high 0.52-1.04 [facility] Comment on above: Performed By: #### C MP #### [facility] [address] [address] [address] Torri Gomez EGFR-AF FIJIAN >60 Normal >=60 [facility] Comment on above: Performed By: #### C MP #### [facility] [address] [address] [address] Torri Gomez EGFR-NON AF FIJIAN 51 mL/min/1.73m2 Critically low >=60 [facility] Comment on above: Performed By: #### C MP #### [facility] [address] [address] [address] Torri Gomez Globulin (S) [Mass/Vol] 3.4 g/dL Normal [facility] Comment on above: Performed By: #### C MP #### [facility] [address] [address] [address] Torri Gomez Glucose [Mass/Vol] 131 mg/dL Critically high 74-106 [facility] Comment on above: Performed By: #### C MP #### [facility] [address] [address] [address] Torri Gomez Potassium [Moles/Vol] 5.0 mmol/L Normal 3.4-5.0 [facility] Comment on above: Performed By: #### C MP #### [facility] [address] [address] [address] Torri Gomez Protein [Mass/Vol] 7.4 g/dL Normal 6.1-8.2 [facility] Comment on above: Performed By: #### C MP #### [facility] [address] [address] [address] Torri Gomez Sodium [Moles/Vol] 137 mmol/L Normal 137-145 [facility] Comment on above: Performed By: #### C MP #### [facility] [address] [address] [address] Torri Gomez Urea nitrogen [Mass/Vol] 26.0 mg/dL Critically high 7.0-17.0 [facility] Comment on above: Performed By: #### C MP #### [facility] [address] [place] [address] Dr. Torri Gomez Urea nitrogen/Creatinine [Mass ratio] 24.3 mg/mg Normal [facility] Comment on above: Performed By: #### C MP #### [facility] [address] [place] [address] Dr. Torri Gomez CBC AUTO DIFFon 01-31-2021 BASO # 0.0 103/ul Normal 0.0-0.1 [facility] Comment on above: Performed By: #### C BC #### [facility] [address] [place] [address] Jesi Rachna Basophils/100 WBC (Bld) 0.4 % Normal 0.2-2.0 [facility] Comment on above: Performed By: #### C BC #### [facility] [address] [place] [address] Jesi Rachna EO # 0.0 103/ul Normal 0.0-0.7 [facility] Comment on above: Performed By: #### C BC #### [facility] [address] [place] [address] Jesi Rachna Eosinophils/100 WBC (Bld) 0.6 % Critically low 0.9-7.0 [facility] Comment on above: Performed By: #### C BC #### [facility] [address] [place] [address] Jesi Rachna Erythrocyte distribution width (RBC) [Ratio] 11.9 % Normal 11.0-15.0 [facility] Comment on above: Performed By: #### C BC #### [facility] [address] [place] [address] Jesi Rachna Hematocrit (Bld) [Volume fraction] 38.5 % Normal 36.0-48.0 [facility] Comment on above: Performed By: #### C BC #### [facility] [address] [place] [address] Jesi Rachna Hemoglobin (Bld) [Mass/Vol] 12.1 g/dL Normal 12.0-16.0 [facility] Comment on above: Performed By: #### C BC #### [facility] [address] [place] [address] Jesi Rachna IG # 0.01 10e3/ul Normal 0.00-0.03 [facility] Comment on above: Performed By: #### C BC #### [facility] [address] [place] [address] Jesi Rachna IG % 0.1 % Normal 0.0-0.5 [facility] Comment on above: Performed By: #### C BC #### [facility] [address] [place] [address] Jesi Rachna LYMPH # 1.7 103/ul Normal 1.2-3.8 [facility] Comment on above: Performed By: #### C BC #### [facility] [address] [place] [address] Jesi Rachna Lymphocytes/100 WBC (Bld) 26.1 % Normal 20.5-60.0 [facility] Comment on above: Performed By: #### C BC #### [facility] [address] [place] [address] Jesi Rachna MANUAL DIFF REQ NO Normal [facility] Comment on above: Performed By: #### C BC #### [facility] [address] [place] [address] Jesi Rachna MCH (RBC) [Entitic mass] 31.8 pg Normal 26.7-34.0 [facility] Comment on above: Performed By: #### C BC #### [facility] [address] [place] [address] Jesi Rachna MCHC (RBC) [Mass/Vol] 31.4 g/dL Normal 29.9-35.2 [facility] Comment on above: Performed By: #### C BC #### [facility] [address] [place] [address] Jesi Rachna MCV (RBC) [Entitic vol] 101.0 fL Critically high 81.0-99.0 [facility] Comment on above: Performed By: #### C BC #### [facility] [address] [place] [address] Jesisanaz Lamaren MONO # 0.4 103/ul Normal 0.3-0.8 [facility] Comment on above: Performed By: #### C BC #### [facility] [address] [place], [place] [id number] Jesi Briscoe Monocytes/100 WBC (Bld) 5.2 % Normal 1.7-12.0 [facility] Comment on above: Performed By: #### C BC #### [facility] [address] [place] [address] Jesisanaz Lamaren NEUT # 4.5 103/ul Normal 1.4-6.5 [facility] Comment on above: Performed By: #### C BC #### [facility] [address] [place] [address] Jesi Briscoe Neutrophils/100 WBC (Bld) 67.6 % Normal 43.0-75.0 [facility] Comment on above: Performed By: #### C BC #### [facility] [address] [place] [address] Jesi Briscoe Platelet mean volume (Bld) [Entitic vol] 10.3 fL Normal 9.5-13.5 [facility] Comment on above: Performed By: #### C BC #### [facility] [address] [place] [address] Jesi Lamaren PLT 329 103/ul Normal 150-450 [facility] Comment on above: Performed By: #### C BC #### [facility] [address] [place] [address] Jesisanaz Lamaren RBC 3.81 106/ul Critically low 4.20-5.40 [facility] Comment on above: Performed By: #### C BC #### [facility] [address] [place] [address] Jesi Rachna WBC 6.7 103/ul Normal 4.0-11.0 [facility] Comment on above: Performed By: #### C BC #### [facility] [address] [place] [address] Jesi Briscoe MYOGLOBINon 01-31-2021 JIMBO 44.0 ng/mL Normal <=61.5 [facility] [facility] Comment on above: Performed By: #### M CHANTAL, CMP #### [facility] [address] [id number] Jesisanaz Lamaren PROF 14(COMP METB)on 021 Albumin [Mass/Vol] 3.7 g/dL Normal 3.5-5.0 [facility] Comment on above: Performed By: #### M CHANTAL, CMP #### [facility] [address] [id number] Jesi Rachna Albumin/Globulin [Mass ratio] 0.9 {ratio} Normal [facility] Comment on above: Performed By: #### M CHANTAL, CMP #### [facility] [address] [place], [place] [id number] Jesi Rachna ALP [Catalytic activity/Vol] 81 U/L Normal 38-126 [facility] Comment on above: Performed By: #### M CHANTAL, CMP #### [facility] [address] [place] [address] Jesi Rachna ALT [Catalytic activity/Vol] 17 U/L Normal 9-52 [facility] Comment on above: Performed By: #### M CHANTAL, CMP #### [facility] [address] [place], [place] [id number] Jesi Rachna Anion gap [Moles/Vol] 15.1 mmol/L Normal [facility] Comment on above: Performed By: #### M CHANTAL, CMP #### [facility] [address] [place], [place] [id number] Jesi Rachna AST [Catalytic activity/Vol] 26 U/L Normal 14-36 [facility] Comment on above: Performed By: #### M YO, CMP #### [facility] [address] [place], [place] [id number] Jesi Rachna Bilirubin [Mass/Vol] 0.3 mg/dL Normal 0.2-1.3 [facility] Comment on above: Performed By: #### M YO, CMP #### [facility] [address] [id number] Jesi Rachna Calcium [Mass/Vol] 9.4 mg/dL Normal 8.4-10.2 [facility] Comment on above: Performed By: #### M YO, CMP #### [facility] [address] [id number] Jesi Rachna Chloride [Moles/Vol] 104 mmol/L Normal 98-107 [facility] Comment on above: Performed By: #### M YO, CMP #### [facility] [address] [id number] Jesi Rachna CO2 [Moles/Vol] 26.0 mmol/L Normal 22.0-30.0 [facility] Comment on above: Performed By: #### M YO, CMP #### [facility] [address] [place], [place] [phone] Jesi Rachna Creatinine [Mass/Vol] 1.21 mg/dL Critically high 0.52-1.04 [facility] Comment on above: Performed By: #### M YO, CMP #### [facility] [address] [place] [address] Jesi Rachna EGFR-AF FIJIAN 54 mL/min/1.73m2 Critically low >=60 [facility] Comment on above: Performed By: #### M YO, CMP #### [facility] [address] [place], [place] [id number] Jesi Rachna EGFR-NON AF FIJIAN 44 mL/min/1.73m2 Critically low >=60 [facility] Comment on above: Performed By: #### M YO, CMP #### [facility] [address] [phone] Jesi Rachna Globulin (S) [Mass/Vol] 3.9 g/dL Normal [facility] Comment on above: Performed By: #### M YO, CMP #### [facility] [address] [phone] Jesi Rachna Glucose [Mass/Vol] 138 mg/dL Critically high 74-106 [facility] Comment on above: Performed By: #### M YO, CMP #### [facility] [address] [phone] Jesi Rachna Potassium [Moles/Vol] 4.1 mmol/L Normal 3.4-5.0 [facility] Comment on above: Performed By: #### M YO, CMP #### [facility] [address], [place] [address] Jesi Rachna Protein [Mass/Vol] 7.6 g/dL Normal 6.1-8.2 [facility] Comment on above: Performed By: #### M YO, CMP #### [facility] [address], [place] [address] Jesi Rachna Sodium [Moles/Vol] 141 mmol/L Normal 137-145 [facility] Comment on above: Performed By: #### M YO, CMP #### [facility] [address], [place] [address] Jesi Rachna Urea nitrogen [Mass/Vol] 19.0 mg/dL Critically high 7.0-17.0 [facility] Comment on above: Performed By: #### M YO, CMP #### [facility] [address] [phone] Jesi Rachna Urea nitrogen/Creatinine [Mass ratio] 15.7 mg/mg Normal [facility] Comment on above: Performed By: #### M YO, CMP #### [facility] [address], [place] [address] Jesi Rachna SED RATE [facility] 2020 SED RATE 66 mm/hr Critically high <=30 [facility] Comment on above: Performed By: #### M YO, CMP #### [facility] [address], [place] [address] Jesi Rachna Vital Signs Date Time Vital Sign Value Performing Clinician Facility 11-29-2023 13:43040 Body height 160.02 cm [facility] 11-29-2023 13:43-0400 Body mass index (BMI) [Ratio] 20.9 kg/m2 [facility] 11-29-2023 13:43040 Body weight 53.52 kg [facility] 11-29-2023 13:43-0400 Diastolic blood pressure 81 mm[Hg] [facility] 11-29-2023 13:43-0400 Heart rate 109 /min [facility] 11-29-2023 13:43-0400 Systolic blood pressure 128 mm[Hg] [facility] 01-18-2023 13:00-0400 Body height 160.02 cm Crystal Jose Other [facility] Other 01-18-2023 13:00-0400 Body mass index (BMI) [Ratio] 20.72 kg/m2 Crystal Jose Other [facility] Other 01-18-2023 13:00-0400 Body weight 53.07 kg Crystal Jose Other [facility] Other 01-18-2023 13:00-0400 Diastolic blood pressure 84 mm[Hg] Crystal Jose Other [facility] Other 01-18-2023 13:00-0400 Systolic blood pressure 134 mm[Hg] Crystal Jose Other [facility] Other Encounters Encounter Date Encounter Type Care Provider Facility Start: 02-25-2024 End: 02-25-2024 ambulatory Lia Marcum MD [facility] Start: 01-21-2024 End: 01-21-2024 ambulatory Lia Marcum MD [facility] Start: 01-14-2024 End: 01-14-2024 ambulatory Lia Marcum MD [facility]: [facility] Start: 01-07-2024 End: 01-07-2024 ambulatory Lia Marcum MD [facility]: [facility] Start: 11-29-2023 End: 11-29-[address] [facility] Work Phone: Start: 11-29-2023 End: 11-29-2023 Patient encounter procedure [facility] Work Phone: Start: 01-30-2023 End: 01-30-2023 ambulatory Crystal Jose Other [facility] Other Start: 01-30-2023 Telephone encounter Crystal Jose [facility] Start: 01-19-2023 End: 01-19-2023 ambulatory Crystal Jose Other [facility] Other Start: 01-19-2023 Telephone encounter Crystal Jose [facility] Start: 01-18-2023 End: 01-18-2023 ambulatory Crystal Jose Other [facility] Other Start: 01-18-2023 Office outpatient ne w 30 minutes Crystal Damon [facility] Start: 01-25-2022 End: 01-26-[address] [place] Facility:[facility] Start: 11-29-2021 End: 11-30-[address] [place] Facility:[facility] Start: 03-03-2021 End: 03-04-[address] [place] Facility:[facility] Start: 01-31-2021 End: 02-01-[address] [place] Facility:[facility] Plan of Treatment Date Care Activity Detail Author DXA Skeletal system. axial Views for bone density [facility] enter XR Lumbar spine 2 or 3 Views [facility] Payers Date Payer Category Payer Medicare 2023 Unknown 1957 Medicare [id number] 1957 Unknown [id number] 1950 Unknown [id number] 2.16.84 [id number] 1950 Unknown [id number] 2.16.84 [id number] 1952 Unknown [id number] 2.16.84 [id number] 1952 Unknown [id number] 2.16.84 [id number] 1952 Unknown [id number] 2.16. [id number] 1952 Unknown [id number] 2.16. [id number] 1952 Unknown [id number] 2.16. [id number] 1952 Unknown [id number] 2.16. [id number] Unknown [facility] [place] [id number] Social History Date Type Detail Facility Unknown if ever smoked [facility] Other Sex Assigned At Sex Assigned At Bir th [facility] Other Start: 11-29-2023 Tobacco smoking status NHIS Never smoked tobacco (finding) [facility] Start: 1950 Sex Assigned At Female F [facility] Evaluation note 01-18-2023 Note Date & Type Note Facility 01-18-2023 Evaluation note Encounter Date Diagnosis Assessment Notes Jan, Piriformis syndrome of right side (ICD-10 - G57.01) Order for PT given to pt. Consider repeat xray, Neurosurgery referral. Requests short term rx of pain med. 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 [facility] Other Evaluation note Note Date & Type Note Facility Evaluation note No Information [employer] Other Evaluation note Note Date & Type Note Facility Evaluation note Diagnosis Onset Date Bilateral sacroiliitis acute Hyperglycemia acute Low vitamin D level acute Medicare annual wellness visit, subsequent acute Osteopenia acute Osteoporosis acute [facility] Work Phone: History general Narrative - Reported Note Date & Type Note Facility History general Narrative - Reported Type Medical History osteoporosis [facility] Other Summary Purpose Family History No Family [...] and content) DATE CREATED AUTHOR 01/28/2022 [facility] DATE CREATED AUTHOR AUTHOR'S ORGANIZ ATION 03/03/2024 [facility] REASON FOR VISIT (unrecogniz ed section [...] BE BASED ON THE PRIMARY CLINICAL RECORDS. [facility] [employer] [facility]. provides no warranty or guarantee of the accuracy or completeness of information in this document.
== END 2024-03-03 12:23 | disposition home or self-care (01) ==
LOC: MRI 12:22
PROVIDERS: PCP Family Medicine; Visit Provider Anesthesiology
DX: M48.062 Spinal stenosis, lumbar region with neurogenic claudication (principal); M51.36 Other intervertebral disc degeneration, lumbar region
CPT/HCPCS: 72148

== ENCOUNTER 2024-03-10 13:00 | Outpatient (OUT) | payer MEDICARE, OTHER, SELFPAY ==
--- OUTSIDE RECORDS SUMMARY | 2024-03-10 13:16 | XMS_ITS | CCD ---
Author Organization [facility] Care Team Providers Care Billet Cutter Name Role Phone HOUSE, DR PICKARD Admitting Unavailable HOUSE, DR PICKARD Attending Unavailable HOUSE, DR PICKARD Consulting Unavailable HOUSE, DR PICKARD Primary Care Unavailable HOUSE, DR PICKARD Admitting Unavailable HOUSE, DR PICKARD Attending Unavailable HOUSE, DR PICKARD Consulting Unavailable [place], DR PICKARD Primary Care Unavailable LARS, DR ELLIOTT Paredes Consulting Unavailable HOUSE, DR PICKARD Admitting Unavailable HOUSE, DR PICKARD Attending Unavailable HOUSE, DR PICKARD Consulting Unavailable [place], DR PICKARD Primary Care Unavailable [place], DR PICKARD Admitting Unavailable [place], DR PICKARD Attending Unavailable [place], DR PICKARD Consulting Unavailable [place], DR PICKARD Primary Care Unavailable Crystal Jose Unavailable Gimusa NEGRETE, Lia Bartlett Attending Unavailable Givillaitis , Lia Bartlett Attending Unavailable Givillaitis , Lia Bartlett Attending Unavailable Givillaitis , Lia Bartlett Attending Unavailable Allergies Allergy Classification Reported Allergen(s) Allergy Type Date of Onset Reaction(s) Facility (3 sources) methylPREDNISolone Drug Allergy bad reaction toucanBox Other Medications Current Medications Medication Drug Class(es) [...] sources) Calcitonin Start: 11-28-2023 End: 11-29-2023 Calcitonin ([place]) Active 1 SPRAY intranasal (ALT) Daily November [...] by: ELLIOTT BECERRIL Date: 2022-01-26 06:[address] [facility] MG MAMM SCREEN 3D KING CADon 01-25-2022 MG MAMM SCREEN 3D KING CAD Patient: ABBY STAHL Exam Date: 01/25/2022 : 1950 Gender:F Ordering : DR MELLY OH D.O. Admission #: [id number] Family : Order #: [id number] CLICK HERE TO VIEW EXAM RADIOLOGY REPORT [...] Treatments None Family Cancers None LOCATION: [facility] BREAST COMPOSITION: Heterogeneously dense,which may obscure [...] Becerril M.D. on 01/25/2022 at 13:[address] [facility] CBC AUTO DIFFon 11-29-2021 BASO # 0.0 103/ul Normal 0.0-0.[address] [facility] Comment on above: Performed By: #### C BC #### [facility] [address] [place] [address] Dr. Torri Gomez Basophils/100 WBC (Bld) 0.7 % Normal 0.2-2.[address] [facility] Comment on above: Performed By: #### C BC #### [facility] [address] [place] [address] Dr. Torri Gomez EO # 0.1 103/ul Normal 0.0-0.7 [facility] Comment on above: Performed By: #### C BC #### [facility] [address] [place] [address] Dr. Torri Gomez Eosinophils/100 WBC (Bld) 2.4 % Normal 0.9-7.[address] [facility] Comment on above: Performed By: #### C BC #### [facility] [address] [place] [address] Dr. Torri Gomez Erythrocyte distribution width (RBC) [Ratio] 11.7 % Normal 11.0-15.[address] [facility] Comment on above: Performed By: #### C BC #### [facility] [address] [place] [address] Dr. Torri Gomez Hematocrit (Bld) [Volume fraction] 43.5 % Normal 36.0-48.[address] [facility] Comment on above: Performed By: #### C BC #### [facility] [address] [place] [address] Dr. Torri Gomez Hemoglobin (Bld) [Mass/Vol] 14.2 g/dL Normal 12.0-16.[address] [facility] Comment on above: Performed By: #### C BC #### [facility] [address] [place] [address] Dr. Torri Gomez IG # 0.01 10e3/ul Normal 0.00-0.03 [facility] Comment on above: Performed By: #### C BC #### [facility] [address] [place] [address] Dr. Torri Gomez IG % 0.2 % Normal 0.0-0.5 [facility] Comment on above: Performed By: #### C BC #### [facility] [address] [place] [address] Dr. Torri Gomez LYMPH # 1.5 103/ul Normal 1.2-3.[address] [facility] Comment on above: Performed By: #### C BC #### [facility] [address] [place] [address] Dr. Torri Gomez Lymphocytes/100 WBC (Bld) 35.6 % Normal 20.5-60.[address] [facility] Comment on above: Performed By: #### C BC #### [facility] [address] [place] [address] Dr. Torri Gomez MANUAL DIFF REQ NO Normal [facility] Comment on above: Performed By: #### C BC #### [facility] [address] [place] [address] Dr. Torri Gomez MCH (RBC) [Entitic mass] 32.3 pg Normal 26.7-34.[address] [facility] Comment on above: Performed By: #### C BC #### [facility] [address] [place] [address] Dr. Torri Gomez MCHC (RBC) [Mass/Vol] 32.6 g/dL Normal 29.9-35.2 [facility] Comment on above: Performed By: #### C BC #### [facility] [address] [place] [address] Dr. Torri Gomez MCV (RBC) [Entitic vol] 98.9 fL Normal 81.0-99.[address] [facility] Comment on above: Performed By: #### C BC #### [facility] [address] [place] [address] Dr. Torri Gomez MONO # 0.4 103/ul Normal 0.3-0.8 [facility] Comment on above: Performed By: #### C BC #### [facility] [address] [place] [address] Dr. Torri Gomez Monocytes/100 WBC (Bld) 9.8 % Normal 1.7-12.[address] [facility] Comment on above: Performed By: #### C BC #### [facility] [address] [place] [address] Dr. Torri Gomez NEUT # 2.2 103/ul Normal 1.4-6.[address] [facility] Comment on above: Performed By: #### C BC #### [facility] [address] [place] [address] Dr. Torri Gomez Neutrophils/100 WBC (Bld) 51.3 % Normal 43.0-75.[address] [facility] Comment on above: Performed By: #### C BC #### [facility] [address] [place] [address] Dr. Torri Gomez Platelet mean volume (Bld) [Entitic vol] 10.4 fL Normal 9.5-13.[address] [facility] Comment on above: Performed By: #### C BC #### [facility] [address] [place] [address] Dr. Torri Gomez PLT 269 103/ul Normal 150-[address] [facility] Comment on above: Performed By: #### C BC #### [facility] [address] [place] [address] Dr. Torri Gomez RBC 4.40 106/ul Normal 4.20-5.[address] [facility] Comment on above: Performed By: #### C BC #### [facility] [address] [place] [address] Dr. Torri Gomez WBC 4.2 103/ul Normal 4.0-11.[address] [facility] Comment on above: Performed By: #### C BC #### [facility] [address] [place] [address] Dr. Torri Gomez GLYCOHEMOGLOBIN A1Con 2021 ADA RECOMMENDATION SEE BELOW Normal [facility] Comment on above: Result Comment: ADA RECOMMENDED LIMIT 4.0 - 6.0 ADA THERAPEUTIC TARGET < 7.0 ACTION SUGGESTED > 7.0 Performed By: #### Danielle CORNEJO, CMP #### [facility] [address] [place] [address] Jesi Rachna Glucose [Mass/Vol] 120 mg/dL Normal [facility] Comment on above: Performed By: #### Danielle CORNEJO, CMP #### [facility] [address] [place] [address] Jesi Rachna HbA1c (Bld) [Mass fraction] 5.8 % Normal 4.5-6.[address] [facility] Comment on above: Performed By: #### M YO, CMP #### [facility] [address] [address] Jesi Briscoe LIPID PROFILEon 11-29-2021 CHOL-HDL RATIO NORM SEE BELOW Normal [facility] Comment on above: Result Comment: 3.3 - 4.4 LOW RISK 4.4 - 7.1 AVERAGE RISK 7.1 - 11.0 MODERATE RISK >11.0 HIGH RISK Performed By: #### T 4, LIPID, TSH, CMP #### [facility] [address] [address] [address] Torri Gomez Cholesterol [Mass/Vol] 198 mg/dL Normal <=[address] [facility] Comment on above: Performed By: #### T 4, LIPID, TSH, CMP #### [facility] [address] [place] [address] Dr. Torri Gomez Cholesterol in HDL [Mass/Vol] 79 mg/dL Critically high 40-[address] [facility] Comment on above: Performed By: #### T 4, LIPID, TSH, CMP #### [facility] [address] [address] [address] Torri Gomez Cholesterol in LDL [Mass/Vol] 101.0 mg/dL Normal [facility] Comment on above: Performed By: #### T 4, LIPID, TSH, CMP #### [facility] [address] [address] [address] Torri Gomez Cholesterol.total/Cho lesterol in HDL [Mass ratio] 2.5 {ratio} Normal [facility] Comment on above: Performed By: #### T 4, LIPID, TSH, CMP #### [facility] [address] [address] [address] Torri Gomez HDL NORMAL > or = 60 mg/dl - LO W CARDIOVASCULAR RISK <40 mg/dl - HIGH CARDIOVASCULAR RISK Normal [facility] Comment on above: Performed By: #### T 4, LIPID, TSH, CMP #### [facility] [address] [place] [address] Dr. Torri Gomez LDL CALC NORMAL SEE BELOW Normal [facility] Comment on above: Result Comment: <100 mg/dl OPTIMAL 100 - 129 mg/dl NEAR OR ABOVE OPTIMAL 130 - 159 mg/dl BORDERLINE HIGH 160 - 189 mg/dl HIGH >190 mg/dl VERY HIGH Performed By: #### T 4, LIPID, TSH, CMP #### [facility] [address] [address] [address] Torri Gomez Triglyceride [Mass/Vol] 90 mg/dL Normal <=[address] [facility] Comment on above: Performed By: #### T 4, LIPID, TSH, CMP #### [facility] [address] [address] [address] Torri Gomez VLDL CALC 18.0 mg/dL Normal [facility] Comment on above: Performed By: #### T 4, LIPID, TSH, CMP #### [facility] [address] [place] [address] Dr. Torri Gomez PROF 14(COMP METB)on 022 Albumin [Mass/Vol] 4.1 g/dL Normal 3.4-5.0 [facility] Comment on above: Performed By: #### T 4, LIPID, TSH, CMP #### [facility] [address] [address] [address] Torri Gomez Albumin/Globulin [Mass ratio] 1.2 {ratio} Normal [facility] Comment on above: Performed By: #### T 4, LIPID, TSH, CMP #### [facility] [address] [address] [address] Torri Gomez ALP [Catalytic activity/Vol] 88 U/L Normal 46-[address] [facility] Comment on above: Performed By: #### T 4, LIPID, TSH, CMP #### [facility] [address] [address] [address] Torri Gomez ALT [Catalytic activity/Vol] 22 U/L Normal 14-[address] [facility] Comment on above: Performed By: #### T 4, LIPID, TSH, CMP #### [facility] [address] [address] [address] Torri Gomez Anion gap [Moles/Vol] 13.6 mmol/L Normal [facility] Comment on above: Performed By: #### T 4, LIPID, TSH, CMP #### [facility] [address] [place] [address] Dr. Torri Gomez AST [Catalytic activity/Vol] 18 U/L Normal 15-[address] [facility] Comment on above: Performed By: #### T 4, LIPID, TSH, CMP #### [facility] [address] [place] [address] Dr. Torri Gomez Bilirubin [Mass/Vol] 0.5 mg/dL Normal 0.2-1.[address] [facility] Comment on above: Performed By: #### T 4, LIPID, TSH, CMP #### [facility] [address] [place] [address] Dr. Torri Gomez Calcium [Mass/Vol] 9.1 mg/dL Normal 8.5-10.1 [facility] Comment on above: Performed By: #### T 4, LIPID, TSH, CMP #### [facility] [address] [place] [address] Dr. Torri Gomez Chloride [Moles/Vol] 104 mmol/L Normal 98-[address] [facility] Comment on above: Performed By: #### T 4, LIPID, TSH, CMP #### [facility] [address] [place] [address] Dr. Torri Gomez CO2 [Moles/Vol] 26.8 mmol/L Normal 21.0-32.0 [facility] Comment on above: Performed By: #### T 4, LIPID, TSH, CMP #### [facility] [address] [place] [address] Dr. Torri Gomez Creatinine [Mass/Vol] 1.06 mg/dL Critically high 0.55-1.[address] [facility] Comment on above: Performed By: #### T 4, LIPID, TSH, CMP #### [facility] [address] [place] [address] Dr. Torri Gomez EGFR-AF FILIPINO >60 Normal >=60 [facility] Comment on above: Performed By: #### T 4, LIPID, TSH, CMP #### [facility] [address] [address] [address] Torri Gomez EGFR-NON AF FILIPINO 51 mL/min/1.73m2 Critically low >=[address] [facility] Comment on above: Performed By: #### T 4, LIPID, TSH, CMP #### [facility] [address] [address] [address] Torri Gomez Globulin (S) [Mass/Vol] 3.4 g/dL Normal [facility] Comment on above: Performed By: #### T 4, LIPID, TSH, CMP #### [facility] [address] [address] [address] Torri Gomez Glucose [Mass/Vol] 93 mg/dL Normal 74-106 [facility] Comment on above: Performed By: #### T 4, LIPID, TSH, CMP #### [facility] [address] [place] [address] Dr. Torri Gomez Potassium [Moles/Vol] 4.4 mmol/L Normal 3.5-5.[address] [facility] Comment on above: Performed By: #### T 4, LIPID, TSH, CMP #### [facility] [address] [address] [address] Torri Gomez Protein [Mass/Vol] 7.5 g/dL Normal 6.4-8.2 [facility] Comment on above: Performed By: #### T 4, LIPID, TSH, CMP #### [facility] [address] [address] [address] Torri Gomez Sodium [Moles/Vol] 140 mmol/L Normal 136-145 [facility] Comment on above: Performed By: #### T 4, LIPID, TSH, CMP #### [facility] [address] [address] [address] Torri Gomez Urea nitrogen [Mass/Vol] 21.0 mg/dL Critically high 7.0-18.[address] [facility] Comment on above: Performed By: #### T 4, LIPID, TSH, CMP #### [facility] [address] [address] [address] Torri Gomez Urea nitrogen/Creatinine [Mass ratio] 19.8 mg/mg Normal [facility] Comment on above: Performed By: #### T 4, LIPID, TSH, CMP #### [facility] [address] [place] [address] Dr. Torri Gomez T4on 11-29-2021 T4 [Mass/Vol] 6.70 ug/dL Normal 4.80-13.90 [facility] Comment on above: Performed By: #### M YO, CMP #### [facility] [address] [place] [address] Jesi Briscoe TSHon 11-29-2021 TSH 2.359 uIU/mL Normal 0.358-3.740 [facility] Comment on above: Performed By: #### T 4, LIPID, TSH, CMP #### [facility] [address] [place] [address] Dr. Torri Gomez VITAMIN D 25 OHon 11-29-2021 VIT D 25-OH 70.8 ng/mL Normal [facility] Comment on above: Performed By: #### M CHANTAL, CMP #### [facility] [address] [place] [address] Jesi Briscoe VIT D RANGES SEE BELOW Normal [facility] Comment on above: Result Comment: <20 ng/mL Vit D deficient 20 - <30 ng/mL Vit D insufficient 30 - 100 ng/mL Vit D sufficient >100 ng/mL Potential Toxicity Performed By: #### Danielle CORNEJO, CMP #### [facility] [address] [place] [address] Jesi Briscoe PROF 14(COMP METB)on 021 Albumin [Mass/Vol] 4.0 g/dL Normal 3.5-5.0 [facility] Comment on above: Performed By: #### C MP #### [facility] [address] [place] [address] Dr. Torri Gomez Albumin/Globulin [Mass ratio] 1.2 {ratio} Normal [facility] Comment on above: Performed By: #### C MP #### [facility] [address] [place] [address] Dr. Torri Gomez ALP [Catalytic activity/Vol] 83 U/L Normal 38-[address] [facility] Comment on above: Performed By: #### C MP #### [facility] [address] [place] [address] Dr. Torri Gomez ALT [Catalytic activity/Vol] 16 U/L Normal 9-[address] [facility] Comment on above: Performed By: #### C MP #### [facility] [address] [address] [address] Torri Gomez Anion gap [Moles/Vol] 13.9 mmol/L Normal [facility] Comment on above: Performed By: #### C MP #### [facility] [address] [address] [address] Torri Gomez AST [Catalytic activity/Vol] 28 U/L Normal 14-[address] [facility] Comment on above: Performed By: #### C MP #### [facility] [address] [place] [address] Dr. Torri Gomez Bilirubin [Mass/Vol] 0.6 mg/dL Normal 0.2-1.[address] [facility] Comment on above: Performed By: #### C MP #### [facility] [address] [address] [address] Torri Gomez Calcium [Mass/Vol] 9.1 mg/dL Normal 8.4-10.2 [facility] Comment on above: Performed By: #### C MP #### [facility] [address] [address] [address] Torri Gomez Chloride [Moles/Vol] 103 mmol/L Normal 98-[address] [facility] Comment on above: Performed By: #### C MP #### [facility] [address] [address] [address] Torri Gomez CO2 [Moles/Vol] 25.1 mmol/L Normal 22.0-30.0 [facility] Comment on above: Performed By: #### C MP #### [facility] [address] [place] [address] Dr. Torri Gomez Creatinine [Mass/Vol] 1.07 mg/dL Critically high 0.52-1.[address] [facility] Comment on above: Performed By: #### C MP #### [facility] [address] [address] [address] Torri Gomez EGFR-AF FILIPINO >60 Normal >=60 [facility] Comment on above: Performed By: #### C MP #### [facility] [address] [address] [address] Torri Gomez EGFR-NON AF FILIPINO 51 mL/min/1.73m2 Critically low >=[address] [facility] Comment on above: Performed By: #### C MP #### [facility] [address] [address] [address] Torri Gomez Globulin (S) [Mass/Vol] 3.4 g/dL Normal [facility] Comment on above: Performed By: #### C MP #### [facility] [address] [address] [address] Torri Gomez Glucose [Mass/Vol] 131 mg/dL Critically high 74-106 [facility] Comment on above: Performed By: #### C MP #### [facility] [address] [address] [address] Torri Gomez Potassium [Moles/Vol] 5.0 mmol/L Normal 3.4-5.[address] [facility] Comment on above: Performed By: #### C MP #### [facility] [address] [address] [address] Torri Gomez Protein [Mass/Vol] 7.4 g/dL Normal 6.1-8.2 [facility] Comment on above: Performed By: #### C MP #### [facility] [address] [address] [address] Torri Gomez Sodium [Moles/Vol] 137 mmol/L Normal 137-145 [facility] Comment on above: Performed By: #### C MP #### [facility] [address] [address] [address] Torri Gomez Urea nitrogen [Mass/Vol] 26.0 mg/dL Critically high 7.0-17.[address] [facility] Comment on above: Performed By: #### C MP #### [facility] [address] [place] [address] Dr. Torri Gomez Urea nitrogen/Creatinine [Mass ratio] 24.3 mg/mg Normal [facility] Comment on above: Performed By: #### C MP #### [facility] [address] [place] [address] Dr. Torri Gomez CBC AUTO DIFFon 01-31-2021 BASO # 0.0 103/ul Normal 0.0-0.[address] [facility] Comment on above: Performed By: #### C BC #### [facility] [address] [place] [address] Jesi Rachna Basophils/100 WBC (Bld) 0.4 % Normal 0.2-2.[address] [facility] Comment on above: Performed By: #### C BC #### [facility] [address] [place] [address] Jesi Rachna EO # 0.0 103/ul Normal 0.0-0.[address] [facility] Comment on above: Performed By: #### C BC #### [facility] [address] [place] [address] Jesi Rachna Eosinophils/100 WBC (Bld) 0.6 % Critically low 0.9-7.[address] [facility] Comment on above: Performed By: #### C BC #### [facility] [address] [place] [address] Jesi Rachna Erythrocyte distribution width (RBC) [Ratio] 11.9 % Normal 11.0-15.0 [facility] Comment on above: Performed By: #### C BC #### [facility] [address] [place] [address] Jesi Rachna Hematocrit (Bld) [Volume fraction] 38.5 % Normal 36.0-48.0 [facility] Comment on above: Performed By: #### C BC #### [facility] [address] [place] [address] Jesi Rachna Hemoglobin (Bld) [Mass/Vol] 12.1 g/dL Normal 12.0-16.0 [facility] Comment on above: Performed By: #### C BC #### [facility] [address] [place] [address] Jesi Rachna IG # 0.01 10e3/ul Normal 0.00-0.[address] [facility] Comment on above: Performed By: #### C BC #### [facility] [address] [place] [address] Jesi Rachna IG % 0.1 % Normal 0.0-0.[address] [facility] Comment on above: Performed By: #### C BC #### [facility] [address] [place] [address] Jesi Rachna LYMPH # 1.7 103/ul Normal 1.2-3.8 [facility] Comment on above: Performed By: #### C BC #### [facility] [address] [place] [address] Jesi Rachna Lymphocytes/100 WBC (Bld) 26.1 % Normal 20.5-60.[address] [facility] Comment on above: Performed By: #### C BC #### [facility] [address] [place] [address] Jesi Rachna MANUAL DIFF REQ NO Normal [facility] Comment on above: Performed By: #### C BC #### [facility] [address] [place] [address] Jesi Rachna MCH (RBC) [Entitic mass] 31.8 pg Normal 26.7-34.[address] [facility] Comment on above: Performed By: #### C BC #### [facility] [address] [place] [address] Jesi Rachna MCHC (RBC) [Mass/Vol] 31.4 g/dL Normal 29.9-35.2 [facility] Comment on above: Performed By: #### C BC #### [facility] [address] [place] [address] Jesi Rachna MCV (RBC) [Entitic vol] 101.0 fL Critically high 81.0-99.[address] [facility] Comment on above: Performed By: #### C BC #### [facility] [address] [place] [address] Jesisanaz Lamaren MONO # 0.4 103/ul Normal 0.3-0.8 [facility] Comment on above: Performed By: #### C BC #### [facility] [address] [place], [place] [id number] Jeis Briscoe Monocytes/100 WBC (Bld) 5.2 % Normal 1.7-12.[address] [facility] Comment on above: Performed By: #### C BC #### [facility] [address] [place] [address] Jesisanaz Lamaren NEUT # 4.5 103/ul Normal 1.4-6.5 [facility] Comment on above: Performed By: #### C BC #### [facility] [address] [place] [address] Jesi Briscoe Neutrophils/100 WBC (Bld) 67.6 % Normal 43.0-75.0 [facility] Comment on above: Performed By: #### C BC #### [facility] [address] [place] [address] Jesi Briscoe Platelet mean volume (Bld) [Entitic vol] 10.3 fL Normal 9.5-13.5 [facility] Comment on above: Performed By: #### C BC #### [facility] [address] [place] [address] Jesi Lamaren PLT 329 103/ul Normal 150-450 [facility] Comment on above: Performed By: #### C BC #### [facility] [address] [place] [address] Jesisanaz Lamaren RBC 3.81 106/ul Critically low 4.20-5.40 [facility] Comment on above: Performed By: #### C BC #### [facility] [address] [place] [address] Jesi Rachna WBC 6.7 103/ul Normal 4.0-11.0 [facility] Comment on above: Performed By: #### C BC #### [facility] [address] [place] [address] Jesi Briscoe MYOGLOBINon 01-31-2021 JIMBO 44.0 ng/mL Normal <=61.5 [facility] Comment on above: Performed By: #### M CHANTAL, CMP #### [facility] [facility] [address] [id number] Jesisanaz Lamaren PROF 14(COMP METB)on 021 Albumin [Mass/Vol] 3.7 g/dL Normal 3.5-5.0 [facility] Comment on above: Performed By: #### M CHANTAL, CMP #### [facility] [address] [id number] Jesi Rachna Albumin/Globulin [Mass ratio] 0.9 {ratio} Normal [facility] Comment on above: Performed By: #### M CHANTAL, CMP #### [facility] [address] [place], [place] [id number] Jesi Rachna ALP [Catalytic activity/Vol] 81 U/L Normal 38-[address] [facility] Comment on above: Performed By: #### M CHANTAL, CMP #### [facility] [address] [place] [address] Jesi Rachna ALT [Catalytic activity/Vol] 17 U/L Normal 9-[address] [facility] Comment on above: Performed By: #### M CHANTAL, CMP #### [facility] [address] [place], [place] [id number] Jesi Rachna Anion gap [Moles/Vol] 15.1 mmol/L Normal [facility] Comment on above: Performed By: #### M CHANTAL, CMP #### [facility] [address] [place], [place] [id number] Jesi Rachna AST [Catalytic activity/Vol] 26 U/L Normal 14-[address] [facility] Comment on above: Performed By: #### M YO, CMP #### [facility] [address] [place], [place] [id number] Jesi Rachna Bilirubin [Mass/Vol] 0.3 mg/dL Normal 0.2-1.[address] [facility] Comment on above: Performed By: #### M YO, CMP #### [facility] [address] [id number] Jesi Rachna Calcium [Mass/Vol] 9.4 mg/dL Normal 8.4-10.2 [facility] Comment on above: Performed By: #### M YO, CMP #### [facility] [address] [id number] Jesi Rachna Chloride [Moles/Vol] 104 mmol/L Normal 98-[address] [facility] Comment on above: Performed By: #### M YO, CMP #### [facility] [address] [id number] Jesi Rachna CO2 [Moles/Vol] 26.0 mmol/L Normal 22.0-30.0 [facility] Comment on above: Performed By: #### M YO, CMP #### [facility] [address] [place], [place] [id number] Jesi Rachna Creatinine [Mass/Vol] 1.21 mg/dL Critically high 0.52-1.[address] [facility] Comment on above: Performed By: #### M YO, CMP #### [facility] [address] [place] [address] Jesi Rachna EGFR-AF FILIPINO 54 mL/min/1.73m2 Critically low >=[address] [facility] Comment on above: Performed By: #### M YO, CMP #### [facility] [address] [place], [place] [phone] Jesi Rachna EGFR-NON AF FILIPINO 44 mL/min/1.73m2 Critically low >=[address] [facility] Comment on above: Performed By: #### M YO, CMP #### [facility] [address] [id number] Jesi Rachna Globulin (S) [Mass/Vol] 3.9 g/dL Normal [facility] Comment on above: Performed By: #### M YO, CMP #### [facility] [address] [id number] Jesi Rachna Glucose [Mass/Vol] 138 mg/dL Critically high 74-106 [facility] Comment on above: Performed By: #### M YO, CMP #### [facility] [address] [id number] Jesi Rachna Potassium [Moles/Vol] 4.1 mmol/L Normal 3.4-5.[address] [facility] Comment on above: Performed By: #### M YO, CMP #### [facility] [address] [place], [place] [address] Jesi Rachna Protein [Mass/Vol] 7.6 g/dL Normal 6.1-8.2 [facility] Comment on above: Performed By: #### M YO, CMP #### [facility] [address] [place], [place] [address] Jesi Rachna Sodium [Moles/Vol] 141 mmol/L Normal 137-145 [facility] Comment on above: Performed By: #### M YO, CMP #### [facility] [address] [place], [place] [address] Jesi Rachna Urea nitrogen [Mass/Vol] 19.0 mg/dL Critically high 7.0-17.[address] [facility] Comment on above: Performed By: #### M YO, CMP #### [facility] [address] [id number] Jesi Rachna Urea nitrogen/Creatinine [Mass ratio] 15.7 mg/mg Normal [facility] Comment on above: Performed By: #### M YO, CMP #### [facility] [address] [place], [place] [address] Jesi Rachna SED RATE [facility] 2020 SED RATE 66 mm/hr Critically high <=30 [facility] [place] Comment on above: Performed By: #### M YO, CMP #### [facility] [address] [place], [place] [address] Jesi Rachna Vital Signs Date Time Vital Sign Value Performing Clinician Facility 11-29-2023 13:43040 Body height 160.02 cm [facility] 11-29-2023 13:43-0400 Body mass index (BMI) [Ratio] 20.9 kg/m2 [facility] 11-29-2023 13:43040 Body weight 53.52 kg [facility] 11-29-2023 13:43-0400 Diastolic blood pressure 81 mm[Hg] [facility] 11-29-2023 13:43-0400 Heart rate 109 /min [facility] 11-29-2023 13:43-0400 Systolic blood pressure 128 mm[Hg] [facility] 01-18-2023 13:00-0400 Body height 160.02 cm Crystal Jose Other [facility] 01-18-2023 13:00-0400 Body mass index (BMI) [Ratio] 20.72 kg/m2 Crystal Jose Other [facility] Other 01-18-2023 13:00-0400 Body weight 53.07 kg Crystal Jose Other [facility] Other 01-18-2023 13:00-0400 Diastolic blood pressure 84 mm[Hg] Crystal Jose Other [facility] Other 01-18-2023 13:00-0400 Systolic blood pressure 134 mm[Hg] Crystal Jose Other [facility] Other Encounters Encounter Date Encounter Type Care Provider Facility Start: 02-25-2024 End: 02-25-2024 ambulatory Lia Marcum MD [facility] Start: 01-21-2024 End: 01-21-2024 ambulatory Lia Marcum MD [facility]: [facility] Start: 01-14-2024 End: 01-14-2024 ambulatory Lia Marcum MD [facility]: [facility] Start: 01-07-2024 End: 01-07-2024 ambulatory Lia Marcum MD [facility]: [facility] Start: 11-29-2023 End: 11-29-2023 ambulatory [facility] Work Phone: Start: 11-29-2023 End: 11-29-2023 Patient encounter procedure [facility] Work Phone: Start: 01-30-2023 End: 01-30-2023 ambulatory Crystal Jose Other [facility] Other Start: 01-30-2023 Telephone encounter Crystal Jose [facility] Start: 01-19-2023 End: 01-19-2023 ambulatory Crystal Jose Other [facility] Other Start: 01-19-2023 Telephone encounter Crystal Jose [facility] Start: 01-18-2023 End: 01-18-2023 ambulatory Crystal Jose Other [facility] Other Start: 01-18-2023 Office outpatient ne w 30 minutes Crystal Damon [facility] Start: 01-25-2022 End: 01-26-[address] [place] Facility:[facility] Start: 11-29-2021 End: 11-30-[address] [place] Facility:[facility] Start: 03-03-2021 End: 03-04-[address] [place] Facility:[facility] Start: 01-31-2021 End: 02-01-[address] [place] Facility:[facility] Plan of Treatment Date Care Activity Detail Author DXA Skeletal system. axial Views for bone density [facility] enter XR Lumbar spine 2 or 3 Views [facility] Payers Date Payer Category Payer Medicare 2023 Unknown 1959 Medicare [id number] 1957 Unknown [id number] 1950 Unknown [id number] 2.16.84 [id number] 1950 Unknown [id number] 2.16.84 [id number] 1952 Unknown [id number] 2.16.84 [id number] 1952 Unknown [id number] 2.16.84 [id number] 1952 Unknown [id number] 2.16. [id number] 1952 Unknown [id number] 2.16. [id number] 1952 Unknown [id number] 2.16. [id number] 1952 Unknown [id number] 2.16. [id number] Unknown [place] [facility] [place] [id number] Social History Date Type Detail Facility Unknown if ever smoked [facility] Other Sex Assigned At Sex Assigned At Bir th [facility] Other Start: 11-29-2023 Tobacco smoking status NHIS Never smoked tobacco (finding) [facility] Start: 1950 Sex Assigned At Female F [facility] Evaluation note 01-18-2023 Note Date & Type Note Facility 01-18-2023 Evaluation note Encounter Date Diagnosis Assessment Notes Jan, Piriformis syndrome of right side (ICD-10 - G57.01) Order for PT given to pt. Consider repeat xray, Neurosurgery referral. Requests short term rx of pain med. 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 [facility] Other Evaluation note Note Date & Type Note Facility Evaluation note No Information [facility] Other Evaluation note Note Date & Type Note Facility Evaluation note Diagnosis Onset Date Bilateral sacroiliitis acute Hyperglycemia acute Low vitamin D level acute Medicare annual wellness visit, subsequent acute Osteopenia acute Osteoporosis acute [facility] Work Phone: History general Narrative - Reported Note Date & Type Note Facility History general Narrative - Reported Type Medical History osteoporosis [email or web address] Other Summary Purpose Family History No Family [...] DATE CREATED AUTHOR AUTHOR'S ORGANIZ ATION 03/03/2024 [facility] REASON FOR VISIT (unrecogniz ed section and [...] BE BASED ON THE PRIMARY CLINICAL RECORDS. [facility] [employer] [facility]. provides no warranty or guarantee of the accuracy or completeness of information in this document.
--- NOTE | 2024-03-10 15:04 | PM.CN ---
Consult Note: HPI Data of Consult Patient: known to practice within the last 3 years Consult date: 03/10/24 Requesting Physician: Lia Marcum MD Primary Care Provider: Crystal Jose MD Consult Narrative Reason for consult: left low back pain Narrative: 73yof who presents for assessment. continues to have left buttock and low back pain. mri reviewed, which shows multilevel foraminal stenosis. continues to be very active and engages in provider directed home exercises. denies adverse med side effects. cc:: CC: Lia Marcum MD Review of Systems ROS Status of ROS 10 or more systems reviewed and unremarkable except as noted in history and below [facility] Medical History Osteoporosis ?M81.0 - Age-related osteoporosis without current pathological fracture (ICD-10) Low back pain ?M54.50 - Low back pain, unspecified (ICD-10) Scoliosis ?M41.9 - Scoliosis, unspecified (ICD-10) Meds Home Medications and Allergies Home Medications ?Medication ?Instructions ?Recorded ?Confirmed ?Type [id number]-[id number] 250 1 tab PO Q6H PRN pain 12/27/23 01/21/24 History mg-250 mg-65 mg tablet (Excedrin Extra Strength) calcitonin (salmon) 200 1 spray intranasal DAILY 12/27/23 01/21/24 History unit/actuation nasal spray calcium 600 mg-D3 800 unit-mag11 1 tab PO DAILY 12/27/23 01/21/24 History 50 gs-xoes-yanbxj-rita-s.borat tablet (Caltrate 600-D Plus Minerals) doxycycline hyclate 50 mg capsule 50 mg PO Q24H 12/27/23 01/21/24 History ibuprofen 200 mg tablet (Advil) 200 mg PO Q8H PRN pain 12/27/23 01/21/24 History magnesium 250 mg tablet 250 mg PO DAILY 12/27/23 01/21/24 History metronidazole 0.75 % topical gel 1 applic topical DAILY 12/27/23 01/21/24 History raloxifene 60 mg tablet 60 mg PO DAILY 12/27/23 01/21/24 History Allergies Allergy/AdvReac Type Severity Reaction Status Date / Time methylprednisolone Allergy Unknown Verified 01/21/24 08:22 Exam Narrative Exam Narrative: Psych-alert and oriented x 3. Attentive and appropriate, constitutionally normal, displays normal mood and affect per situation.? There are no obvious deficits in memory, reasoning, or intellect.? Skin-no obvious rashes, bruising, erythema noted to the patient's area of pain. Extremities- extremities are warm with minimal edema and palpable pulses. Lumbar-no significant tenderness to palpation noted in the lumbar spine and paraspinal musculature.? Pain is elicited with extension, and lateral rotation of the lumbar spine. Range of motion is slightly diminished with these motions due to pain. Sacroiliac - tender to palpation over left PSIS. Positive Iggy's on left. Positive thigh thrust on left. Coordination remains intact.? Gait remains non-antalgic. Assessment and Plan Assessment and Plan (1) Sacroiliac joint disease: Plan 73yof who presents for assessment. failed conservative measures, as noted. imaging reviewed, as noted. given symptoms and imaging, prudent to attempt left sacroiliac joint injection under fluoroscopic guidance. she is in agreement. meds reviewed, no changes. follow up after procedure.
== END 2024-03-10 13:01 | disposition home or self-care (01) ==
LOC: PM 13:01
PROVIDERS: PCP Family Medicine; Visit Provider Anesthesiology
DX: M53.3 Sacrococcygeal disorders, not elsewhere classified (principal)
CPT/HCPCS: G0463

== ENCOUNTER 2024-03-17 09:09 | Day surgery (SDC) | payer MEDICARE, OTHER, SELFPAY ==
--- OUTSIDE RECORDS SUMMARY | 2024-03-17 09:15 | XMS_ITS | CCD ---
Author Organization [facility] Care Team Providers Care Anatomic Pathology Assistant Name Role Phone HOUSE, DR PICKARD Admitting Unavailable HOUSE, DR PICKARD Attending Unavailable HOUSE, DR PICKARD Consulting Unavailable HOUSE, DR PICKARD Primary Care Unavailable HOUSE, DR PICKARD Admitting Unavailable HOUSE, DR PICKARD Attending Unavailable HOUSE, DR PICKARD Consulting Unavailable IGNACIO, DR PICKARD Primary Care Unavailable LARS, DR ELLIOTT Paredes Consulting Unavailable HOUSE, DR PICKARD Admitting Unavailable HOUSE, DR PICKARD Attending Unavailable HOUSE, DR PICKARD Consulting Unavailable IGNACIO, DR PICKARD Primary Care Unavailable IGNACIO, DR PICKARD Admitting Unavailable IGNACIO, DR PICKARD Attending Unavailable IGNACIO, DR PICKARD Consulting Unavailable IGNACIO, DR PICKARD Primary Care Unavailable Crystal Jose Unavailable Gimusa NEGRETE, Lia Bartlett Attending Unavailable Givillaitis , Lia Bartlett Attending Unavailable Givillaitis , Lia Bartlett Attending Unavailable Givillaitis , Lia Bartlett Attending Unavailable Allergies Allergy Classification Reported Allergen(s) Allergy Type Date of Onset Reaction(s) Facility (3 sources) methylPREDNISolone Drug Allergy bad reaction [facility] Other Medications Current Medications Medication Drug Class(es) [...] sources) Calcitonin Start: 11-28-2023 End: 11-29-2023 Calcitonin (Oran) Active 1 SPRAY intranasal (ALT) Daily November [...] by: ELLIOTT BECERRIL Date: 2022-01-26 06:54 Normal [facility] MG MAMM SCREEN 3D KING CADon 01-25-2022 MG MAMM SCREEN 3D KING CAD Patient: ABBY STAHL Exam Date: 01/25/2022 : 1950 Gender:F Ordering : DR MELLY OH D.O. Admission #: [id number] Family : Order #: [id number] CLICK HERE TO VIEW EXAM RADIOLOGY REPORT [...] Cancers None LOCATION: [facility] BREAST COMPOSITION: Heterogeneously dense,which may obscure small [...] Becerril M.D. on 01/25/2022 at 13:54 Normal [facility] CBC AUTO DIFFon 11-29-2021 BASO # 0.0 103/ul Normal 0.0-0.1 [facility] Comment on above: Performed By: #### C BC #### [facility] [address] [place] [address] Dr. Torri Gomez Basophils/100 WBC (Bld) 0.7 % Normal 0.2-2.0 [facility] Comment on above: Performed By: #### C BC #### [facility] [address] [place] [address] Dr. Torri Gomez EO # 0.1 103/ul Normal 0.0-0.7 [facility] Comment on above: Performed By: #### C BC #### [facility] [address] [place] [address] Dr. Torri Gomez Eosinophils/100 WBC (Bld) 2.4 % Normal 0.9-7.0 [facility] Comment on above: Performed By: #### C BC #### [facility] [address] [place] [address] Dr. Torri Gomez Erythrocyte distribution width (RBC) [Ratio] 11.7 % Normal 11.0-15.0 [facility] Comment on above: Performed By: #### C BC #### [facility] [address] [place] [address] Dr. Torri Gomez Hematocrit (Bld) [Volume fraction] 43.5 % Normal 36.0-48.0 [facility] Comment on above: Performed By: #### C BC #### [facility] [address] [place] [address] Dr. Torri Gomez Hemoglobin (Bld) [Mass/Vol] 14.2 g/dL Normal 12.0-16.0 [facility] Comment on above: Performed By: #### C BC #### [facility] [address] [place] [address] Dr. Torri Gomez IG # 0.01 10e3/ul Normal 0.00-0.03 [facility] Comment on above: Performed By: #### C BC #### [facility] [address] [place] [address] Dr. Torri Gomez IG % 0.2 % Normal 0.0-0.5 [facility] Comment on above: Performed By: #### C BC #### [facility] [address] [place] [address] Dr. Torri Gomez LYMPH # 1.5 103/ul Normal 1.2-3.8 [facility] Comment on above: Performed By: #### C BC #### [facility] [address] [place] [address] Dr. Torri Gomez Lymphocytes/100 WBC (Bld) 35.6 % Normal 20.5-60.0 [facility] Comment on above: Performed By: #### C BC #### [facility] [address] [place] [address] Dr. Torri Gomez MANUAL DIFF REQ NO Normal [facility] Comment on above: Performed By: #### C BC #### [facility] [address] [place] [address] Dr. Torri Gomez MCH (RBC) [Entitic mass] 32.3 pg Normal 26.7-34.0 [facility] Comment on above: Performed By: #### C BC #### [facility] [address] [place] [address] Dr. Torri Gomez MCHC (RBC) [Mass/Vol] 32.6 g/dL Normal 29.9-35.2 [facility] Comment on above: Performed By: #### C BC #### [facility] [address] [place] [address] Dr. Torri Gomez MCV (RBC) [Entitic vol] 98.9 fL Normal 81.0-99.0 [facility] Comment on above: Performed By: #### C BC #### [facility] [address] [place] [address] Dr. Torri Gomez MONO # 0.4 103/ul Normal 0.3-0.8 [facility] Comment on above: Performed By: #### C BC #### [facility] [address] [place] [address] Dr. Torri Gomez Monocytes/100 WBC (Bld) 9.8 % Normal 1.7-12.0 [facility] Comment on above: Performed By: #### C BC #### [facility] [address] [place] [address] Dr. Torri Gomez NEUT # 2.2 103/ul Normal 1.4-6.5 [facility] Comment on above: Performed By: #### C BC #### [facility] [address] [place] [address] Dr. Torri Gomez Neutrophils/100 WBC (Bld) 51.3 % Normal 43.0-75.0 [facility] Comment on above: Performed By: #### C BC #### [facility] [address] [place] [address] Dr. Torri Gomez Platelet mean volume (Bld) [Entitic vol] 10.4 fL Normal 9.5-13.5 [facility] Comment on above: Performed By: #### C BC #### [facility] [address] [place] [address] Dr. Torri Gomez PLT 269 103/ul Normal 150-450 [facility] Comment on above: Performed By: #### C BC #### [facility] [address] [place] [address] Dr. Torri Gomez RBC 4.40 106/ul Normal 4.20-5.40 [facility] Comment on above: Performed By: #### C BC #### [facility] [address] [place] [address] Dr. Torri Gomez WBC 4.2 103/ul Normal 4.0-11.0 [facility] Comment on above: Performed By: #### C BC #### [facility] [address] [place] [address] Dr. Torri Gomez GLYCOHEMOGLOBIN A1Con 2021 ADA RECOMMENDATION SEE BELOW Normal [facility] Comment on above: Result Comment: ADA RECOMMENDED LIMIT 4.0 - 6.0 ADA THERAPEUTIC TARGET < 7.0 ACTION SUGGESTED > 7.0 Performed By: #### Danielle CORNEJO, CMP #### [facility] [address] [place] [address] Jesi Rachna Glucose [Mass/Vol] 120 mg/dL Normal [facility] Comment on above: Performed By: #### Danielle CORNEJO, CMP #### [facility] [address] [place] [address] Jesi Rachna HbA1c (Bld) [Mass fraction] 5.8 % Normal 4.5-6.2 [facility] Comment on above: Performed By: #### M YO, CMP #### [facility] [address] [address] Jesi Briscoe LIPID PROFILEon 11-29-2021 CHOL-HDL RATIO NORM SEE BELOW Normal [facility] Comment on above: Result Comment: 3.3 - 4.4 LOW RISK 4.4 - 7.1 AVERAGE RISK 7.1 - 11.0 MODERATE RISK >11.0 HIGH RISK Performed By: #### T 4, LIPID, TSH, CMP #### [facility] [address] [address] [address] Torri Gomez Cholesterol [Mass/Vol] 198 mg/dL Normal <=200 [facility] Comment on above: Performed By: #### T 4, LIPID, TSH, CMP #### [facility] [address] [place] [address] Dr. Torri Gomez Cholesterol in HDL [Mass/Vol] 79 mg/dL Critically high 40-60 [facility] Comment on above: Performed By: #### T 4, LIPID, TSH, CMP #### [facility] [address] [address] [address] Torri Gomez Cholesterol in LDL [Mass/Vol] 101.0 mg/dL Normal [facility] Comment on above: Performed By: #### T 4, LIPID, TSH, CMP #### [facility] [address] [address] [address] Torri Gomez Cholesterol.total/Cho lesterol in HDL [Mass ratio] 2.5 {ratio} Normal [facility] Comment on above: Performed By: #### T 4, LIPID, TSH, CMP #### [facility] [address] [address] [address] Torri Gomez HDL NORMAL > or = 60 mg/dl - LO W CARDIOVASCULAR RISK <40 mg/dl - HIGH CARDIOVASCULAR RISK Normal [facility] Comment on above: Performed By: #### T 4, LIPID, TSH, CMP #### [facility] [address] [place] [address] Dr. Torri Gomez LDL CALC NORMAL SEE BELOW Normal [facility] Comment on above: Result Comment: <100 mg/dl OPTIMAL 100 - 129 mg/dl NEAR OR ABOVE OPTIMAL 130 - 159 mg/dl BORDERLINE HIGH 160 - 189 mg/dl HIGH >190 mg/dl VERY HIGH Performed By: #### T 4, LIPID, TSH, CMP #### [facility] [address] [address] [address] Torri Gomez Triglyceride [Mass/Vol] 90 mg/dL Normal <=150 [facility] Comment on above: Performed By: #### T 4, LIPID, TSH, CMP #### [facility] [address] [address] [address] Torri Gomez VLDL CALC 18.0 mg/dL Normal [facility] Comment on above: Performed By: #### T 4, LIPID, TSH, CMP #### [facility] [address] [place] [address] Dr. Torri Gomez PROF 14(COMP METB)on 022 Albumin [Mass/Vol] 4.1 g/dL Normal 3.4-5.0 [facility] Comment on above: Performed By: #### T 4, LIPID, TSH, CMP #### [facility] [address] [address] [address] Torri Gomez Albumin/Globulin [Mass ratio] 1.2 {ratio} Normal [facility] Comment on above: Performed By: #### T 4, LIPID, TSH, CMP #### [facility] [address] [address] [address] Torri Gomez ALP [Catalytic activity/Vol] 88 U/L Normal 46-116 [facility] Comment on above: Performed By: #### T 4, LIPID, TSH, CMP #### [facility] [address] [address] [address] Torri Gomez ALT [Catalytic activity/Vol] 22 U/L Normal 14-59 [facility] Comment on above: Performed By: #### T 4, LIPID, TSH, CMP #### [facility] [address] [address] [address] Torri Gomez Anion gap [Moles/Vol] 13.6 mmol/L Normal [facility] Comment on above: Performed By: #### T 4, LIPID, TSH, CMP #### [facility] [address] [place] [address] Dr. Torri Gomez AST [Catalytic activity/Vol] 18 U/L Normal 15-37 [facility] Comment on above: Performed By: #### T 4, LIPID, TSH, CMP #### [facility] [address] [place] [address] Dr. Torri Gomez Bilirubin [Mass/Vol] 0.5 mg/dL Normal 0.2-1.0 [facility] Comment on above: Performed By: #### T 4, LIPID, TSH, CMP #### [facility] [address] [place] [address] Dr. Torri Gomez Calcium [Mass/Vol] 9.1 mg/dL Normal 8.5-10.1 [facility] Comment on above: Performed By: #### T 4, LIPID, TSH, CMP #### [facility] [address] [place] [address] Dr. Torri Gomez Chloride [Moles/Vol] 104 mmol/L Normal 98-107 [facility] Comment on above: Performed By: #### T 4, LIPID, TSH, CMP #### [facility] [address] [place] [address] Dr. Torri Gomez CO2 [Moles/Vol] 26.8 mmol/L Normal 21.0-32.0 [facility] Comment on above: Performed By: #### T 4, LIPID, TSH, CMP #### [facility] [address] [place] [address] Dr. Torri Gomez Creatinine [Mass/Vol] 1.06 mg/dL Critically high 0.55-1.02 [facility] Comment on above: Performed By: #### T 4, LIPID, TSH, CMP #### [facility] [address] [place] [address] Dr. Torri Gomez EGFR-AF GIBRALTARIAN >60 Normal >=60 [facility] Comment on above: Performed By: #### T 4, LIPID, TSH, CMP #### [facility] [address] [address] [address] Torri Gomez EGFR-NON AF GIBRALTARIAN 51 mL/min/1.73m2 Critically low >=60 [facility] Comment on above: Performed By: #### T 4, LIPID, TSH, CMP #### [facility] [address] [address] [address] Torri Gomez Globulin (S) [Mass/Vol] 3.4 g/dL Normal [facility] Comment on above: Performed By: #### T 4, LIPID, TSH, CMP #### [facility] [address] [address] [address] Torri Gomez Glucose [Mass/Vol] 93 mg/dL Normal 74-106 [facility] Comment on above: Performed By: #### T 4, LIPID, TSH, CMP #### [facility] [address] [place] [address] Dr. Torri Gomez Potassium [Moles/Vol] 4.4 mmol/L Normal 3.5-5.1 [facility] Comment on above: Performed By: #### T 4, LIPID, TSH, CMP #### [facility] [address] [address] [address] Torri Gomez Protein [Mass/Vol] 7.5 g/dL Normal 6.4-8.2 [facility] Comment on above: Performed By: #### T 4, LIPID, TSH, CMP #### [facility] [address] [address] [address] Torri Gomez Sodium [Moles/Vol] 140 mmol/L Normal 136-145 [facility] Comment on above: Performed By: #### T 4, LIPID, TSH, CMP #### [facility] [address] [address] [address] Torri Gomez Urea nitrogen [Mass/Vol] 21.0 mg/dL Critically high 7.0-18.0 [facility] Comment on above: Performed By: #### T 4, LIPID, TSH, CMP #### [facility] [address] [address] [address] Torri Gomez Urea nitrogen/Creatinine [Mass ratio] 19.8 mg/mg Normal [facility] Comment on above: Performed By: #### T 4, LIPID, TSH, CMP #### [facility] [address] [place] [address] Dr. Torri Gomez T4on 11-29-2021 T4 [Mass/Vol] 6.70 ug/dL Normal 4.80-13.90 [facility] Comment on above: Performed By: #### M YO, CMP #### [facility] [address] [place] [address] Jesi Briscoe TSHon 11-29-2021 TSH 2.359 uIU/mL Normal 0.358-3.740 [facility] Comment on above: Performed By: #### T 4, LIPID, TSH, CMP #### [facility] [address] [place] [address] Dr. Torri Gomez VITAMIN D 25 OHon 11-29-2021 VIT D 25-OH 70.8 ng/mL Normal [facility] Comment on above: Performed By: #### M CHANTAL, CMP #### [facility] [address] [place] [address] Jesi Briscoe VIT D RANGES SEE BELOW Normal [facility] Comment on above: Result Comment: <20 ng/mL Vit D deficient 20 - <30 ng/mL Vit D insufficient 30 - 100 ng/mL Vit D sufficient >100 ng/mL Potential Toxicity Performed By: #### Danielle CORNEJO, CMP #### [facility] [address] [place] [address] Jesi Briscoe PROF 14(COMP METB)on 021 Albumin [Mass/Vol] 4.0 g/dL Normal 3.5-5.0 [facility] Comment on above: Performed By: #### C MP #### [facility] [address] [place] [address] Dr. Torri Gomez Albumin/Globulin [Mass ratio] 1.2 {ratio} Normal [facility] Comment on above: Performed By: #### C MP #### [facility] [address] [place] [address] Dr. Torri Gomez ALP [Catalytic activity/Vol] 83 U/L Normal 38-126 [facility] Comment on above: Performed By: #### C MP #### [facility] [address] [place] [address] Dr. Torri Gomez ALT [Catalytic activity/Vol] 16 U/L Normal 9-52 [facility] Comment on above: Performed By: #### C MP #### [facility] [address] [address] [address] Torri Gomez Anion gap [Moles/Vol] 13.9 mmol/L Normal [facility] Comment on above: Performed By: #### C MP #### [facility] [address] [address] [address] Torri Gomez AST [Catalytic activity/Vol] 28 U/L Normal 14-36 [facility] Comment on above: Performed By: #### C MP #### [facility] [address] [place] [address] Dr. Torri Gomez Bilirubin [Mass/Vol] 0.6 mg/dL Normal 0.2-1.3 [facility] Comment on above: Performed By: #### C MP #### [facility] [address] [address] [address] Torri Gomez Calcium [Mass/Vol] 9.1 mg/dL Normal 8.4-10.2 [facility] Comment on above: Performed By: #### C MP #### [facility] [address] [address] [address] Torri Gomez Chloride [Moles/Vol] 103 mmol/L Normal 98-107 [facility] Comment on above: Performed By: #### C MP #### [facility] [address] [address] [address] Torri Gomez CO2 [Moles/Vol] 25.1 mmol/L Normal 22.0-30.0 [facility] Comment on above: Performed By: #### C MP #### [facility] [address] [place] [address] Dr. Torri Gomez Creatinine [Mass/Vol] 1.07 mg/dL Critically high 0.52-1.04 [facility] Comment on above: Performed By: #### C MP #### [facility] [address] [address] [address] Torri Gomez EGFR-AF GIBRALTARIAN >60 Normal >=60 [facility] Comment on above: Performed By: #### C MP #### [facility] [address] [address] [address] Torri Gomez EGFR-NON AF GIBRALTARIAN 51 mL/min/1.73m2 Critically low >=60 [facility] Comment on above: Performed By: #### C MP #### [facility] [address] [address] [address] Torri Gomez Globulin (S) [Mass/Vol] 3.4 g/dL Normal [facility] Comment on above: Performed By: #### C MP #### [facility] [address] [address] [address] Torri Gomez Glucose [Mass/Vol] 131 mg/dL Critically high 74-106 [facility] Comment on above: Performed By: #### C MP #### [facility] [address] [address] [address] Torri Goemz Potassium [Moles/Vol] 5.0 mmol/L Normal 3.4-5.0 [facility] Comment on above: Performed By: #### C MP #### [facility] [address] [address] [address] Torri Gomez Protein [Mass/Vol] 7.4 g/dL Normal 6.1-8.2 [facility] Comment on above: Performed By: #### C MP #### [facility] [address] [address] [address] Torri Gomez Sodium [Moles/Vol] 137 mmol/L Normal 137-145 [facility] Comment on above: Performed By: #### C MP #### [facility] [address] [address] [address] Torri Gomez Urea nitrogen [Mass/Vol] 26.0 mg/dL Critically high 7.0-17.0 [facility] Comment on above: Performed By: #### C MP #### [facility] [address] [place] [address] Dr. Torri Gomez Urea nitrogen/Creatinine [Mass ratio] 24.3 mg/mg Normal [facility] Comment on above: Performed By: #### C MP #### [facility] [address] [place] [address] Dr. Torri Gomez CBC AUTO DIFFon 01-31-2021 BASO # 0.0 103/ul Normal 0.0-0.1 [facility] Comment on above: Performed By: #### C BC #### [facility] [address] [place] [address] Jesi Rachna Basophils/100 WBC (Bld) 0.4 % Normal 0.2-2.0 [facility] Comment on above: Performed By: #### C BC #### [facility] [address] [place] [address] Jesi Rachna EO # 0.0 103/ul Normal 0.0-0.7 [facility] Comment on above: Performed By: #### C BC #### [facility] [address] [place] [address] Jesi Rachna Eosinophils/100 WBC (Bld) 0.6 % Critically low 0.9-7.0 [facility] Comment on above: Performed By: #### C BC #### [facility] [address] [place] [address] Jesi Rachna Erythrocyte distribution width (RBC) [Ratio] 11.9 % Normal 11.0-15.0 [facility] Comment on above: Performed By: #### C BC #### [facility] [address] [place] [address] Jesi Rachna Hematocrit (Bld) [Volume fraction] 38.5 % Normal 36.0-48.0 [facility] Comment on above: Performed By: #### C BC #### [facility] [address] [place] [address] Jesi Rachna Hemoglobin (Bld) [Mass/Vol] 12.1 g/dL Normal 12.0-16.0 [facility] Comment on above: Performed By: #### C BC #### [facility] [address] [place] [address] Jesi Rachna IG # 0.01 10e3/ul Normal 0.00-0.03 [facility] Comment on above: Performed By: #### C BC #### [facility] [address] [place] [address] Jesi Rachna IG % 0.1 % Normal 0.0-0.5 [facility] Comment on above: Performed By: #### C BC #### [facility] [address] [place] [address] Jesi Rachna LYMPH # 1.7 103/ul Normal 1.2-3.8 [facility] Comment on above: Performed By: #### C BC #### [facility] [address] [place] [address] Jesi Rachna Lymphocytes/100 WBC (Bld) 26.1 % Normal 20.5-60.0 [facility] Comment on above: Performed By: #### C BC #### [facility] [address] [place] [address] Jesi Rachna MANUAL DIFF REQ NO Normal [facility] Comment on above: Performed By: #### C BC #### [facility] [address] [place] [address] Jesi Rachna MCH (RBC) [Entitic mass] 31.8 pg Normal 26.7-34.0 [facility] Comment on above: Performed By: #### C BC #### [facility] [address] [place] [address] Jesi Rachna MCHC (RBC) [Mass/Vol] 31.4 g/dL Normal 29.9-35.2 [facility] Comment on above: Performed By: #### C BC #### [facility] [address] [place] [address] Jesi Rachna MCV (RBC) [Entitic vol] 101.0 fL Critically high 81.0-99.0 [facility] Comment on above: Performed By: #### C BC #### [facility] [address] [place] [address] Jesisanaz Lamaren MONO # 0.4 103/ul Normal 0.3-0.8 [facility] Comment on above: Performed By: #### C BC #### [facility] [address] [place], [place] [id number] Jesi Briscoe Monocytes/100 WBC (Bld) 5.2 % Normal 1.7-12.0 [facility] Comment on above: Performed By: #### C BC #### [facility] [address] [place] [address] Jesisanaz Lamaren NEUT # 4.5 103/ul Normal 1.4-6.5 [facility] Comment on above: Performed By: #### C BC #### [facility] [address] [place] [address] Jesi Briscoe Neutrophils/100 WBC (Bld) 67.6 % Normal 43.0-75.0 [facility] Comment on above: Performed By: #### C BC #### [facility] [address] [place] [address] Jesi Briscoe Platelet mean volume (Bld) [Entitic vol] 10.3 fL Normal 9.5-13.5 [facility] Comment on above: Performed By: #### C BC #### [facility] [address] [place] [address] Jesi Lamaren PLT 329 103/ul Normal 150-450 [facility] Comment on above: Performed By: #### C BC #### [facility] [address] [place] [address] Jesisanaz Lamaren RBC 3.81 106/ul Critically low 4.20-5.40 [facility] Comment on above: Performed By: #### C BC #### [facility] [address] [place] [address] Jesi Rachna WBC 6.7 103/ul Normal 4.0-11.0 [facility] Comment on above: Performed By: #### C BC #### [facility] [address] [place] [address] Jesi Briscoe MYOGLOBINon 01-31-2021 JIMBO 44.0 ng/mL Normal <=61.5 [facility] Comment on above: Performed By: #### M CHANTAL, CMP #### [facility] [address] [id number] Jesisanaz Lamaren PROF 14(COMP METB)on 021 Albumin [Mass/Vol] 3.7 g/dL Normal 3.5-5.0 [facility] Comment on above: Performed By: #### M CHANTAL, CMP #### [facility] [address] [id number] Jesi Rachna Albumin/Globulin [Mass ratio] 0.9 {ratio} Normal [facility] Comment on above: Performed By: #### M CHANTAL, CMP #### [facility] [address] [place], [place] [id number] Jesi Rachna ALP [Catalytic activity/Vol] 81 U/L Normal 38-126 [facility] Comment on above: Performed By: #### M CHANTAL, CMP #### [facility] Laboratory [address] [place] [address] Jesi Rachna ALT [Catalytic activity/Vol] 17 U/L Normal 9-52 [facility] Comment on above: Performed By: #### M CHANTAL, CMP #### [facility] [address] [place], [place] [id number] Jesi Rachna Anion gap [Moles/Vol] 15.1 mmol/L Normal [facility] Comment on above: Performed By: #### M CHANTAL, CMP #### [facility] [address] [place], [place] [id number] Jesi Rachna AST [Catalytic activity/Vol] 26 U/L Normal 14-36 [facility] Comment on above: Performed By: #### M YO, CMP #### [facility] [address] [place], [place] [id number] Jesi Rachna Bilirubin [Mass/Vol] 0.3 mg/dL Normal 0.2-1.3 [facility] Comment on above: Performed By: #### M YO, CMP #### [facility] [address] [id number] Jesi Rachna Calcium [Mass/Vol] 9.4 mg/dL Normal 8.4-10.2 [facility] Comment on above: Performed By: #### M YO, CMP #### [facility] [address] [id number] Jesi Rachna Chloride [Moles/Vol] 104 mmol/L Normal 98-107 [facility] Comment on above: Performed By: #### M YO, CMP #### [facility] [address] [id number] Jesi Rachna CO2 [Moles/Vol] 26.0 mmol/L Normal 22.0-30.0 [facility] Comment on above: Performed By: #### M YO, CMP #### [facility] [address] [place], [place] [id number] Jesi Rachna Creatinine [Mass/Vol] 1.21 mg/dL Critically high 0.52-1.04 [facility] Comment on above: Performed By: #### M YO, CMP #### [facility] [address] [place] [address] Jesi Rachna EGFR-AF GIBRALTARIAN 54 mL/min/1.73m2 Critically low >=60 [facility] Comment on above: Performed By: #### M YO, CMP #### [facility] [address] [place], [place] [id number] Jesi Rachna EGFR-NON AF GIBRALTARIAN 44 mL/min/1.73m2 Critically low >=60 [facility] Comment on above: Performed By: #### M YO, CMP #### [facility] [address] [id number] Jesi Rachna Globulin (S) [Mass/Vol] 3.9 g/dL Normal [facility] Comment on above: Performed By: #### M YO, CMP #### [facility] [address] [id number] Jesi Rachna Glucose [Mass/Vol] 138 mg/dL Critically high 74-106 [facility] Comment on above: Performed By: #### M YO, CMP #### [facility] [address] [id number] Jesi Rachna Potassium [Moles/Vol] 4.1 mmol/L Normal 3.4-5.0 [facility] Comment on above: Performed By: #### M YO, CMP #### [facility] [address] [place], [place] [address] Jesi Rachna Protein [Mass/Vol] 7.6 g/dL Normal 6.1-8.2 [facility] Comment on above: Performed By: #### M YO, CMP #### [facility] [address] [place], [place] [address] Jesi Rachna Sodium [Moles/Vol] 141 mmol/L Normal 137-145 [facility] Comment on above: Performed By: #### M YO, CMP #### [facility] [address] [place], [place] [address] Jesi Rachna Urea nitrogen [Mass/Vol] 19.0 mg/dL Critically high 7.0-17.0 [facility] Comment on above: Performed By: #### M YO, CMP #### [facility] [address] [id number] Jesi Rachna Urea nitrogen/Creatinine [Mass ratio] 15.7 mg/mg Normal [facility] Comment on above: Performed By: #### M YO, CMP #### [facility] [address] [place], [place] [address] Jesi Rachna SED RATE [facility] 2020 SED RATE 66 mm/hr Critically high <=30 [facility] Comment on above: Performed By: #### M YO, CMP #### [facility] [address] [place], [place] [address] Jesi Rachna Vital Signs Date Time Vital Sign Value Performing Clinician Facility 11-29-2023 13:43040 Body height 160.02 cm [facility] 11-29-2023 13:43-0400 Body mass index (BMI) [Ratio] 20.9 kg/m2 [facility] 11-29-2023 13:43040 Body weight 53.52 kg [facility] 11-29-2023 13:43-0400 Diastolic blood pressure 81 mm[Hg] [facility] 11-29-2023 13:43-0400 Heart rate 109 /min [facility] 11-29-2023 13:43-0400 Systolic blood pressure 128 mm[Hg] [facility] 01-18-2023 13:00-0400 Body height 160.02 cm Crystal Jose Other [facility] 01-18-2023 13:00-0400 Body mass index (BMI) [Ratio] 20.72 kg/m2 Crystal Jose Other [facility] Other 01-18-2023 13:00-0400 Body weight 53.07 kg Crystal Jose Other [facility] Other 01-18-2023 13:00-0400 Diastolic blood pressure 84 mm[Hg] Crystal Jose Other [facility] Other 01-18-2023 13:00-0400 Systolic blood pressure 134 mm[Hg] Crystal Jose Other [facility] Other Encounters Encounter Date Encounter Type Care Provider Facility Start: 02-25-2024 End: 02-25-2024 ambulatory Lia Marcum MD [facility] Start: 01-21-2024 End: 01-21-2024 ambulatory Lia Marcum MD [facility]: [facility] Start: 01-14-2024 End: 01-14-2024 ambulatory Lia Marcum MD Facility: [facility] Start: 01-07-2024 End: 01-07-2024 ambulatory Lia Marcum MD Facility: [facility] Start: 11-29-2023 End: 11-29-2023 ambulatory [facility] Work Phone: Start: 11-29-2023 End: 11-29-2023 Patient encounter procedure [facility] Work Phone: Start: 01-30-2023 End: 01-30-2023 ambulatory Crystal Jose Other [facility] Other Start: 01-30-2023 Telephone encounter Crystal Jose [facility] Start: 01-19-2023 End: 01-19-2023 ambulatory Crystal Jose Other [facility] Other Start: 01-19-2023 Telephone encounter Crystal Jose [facility] Start: 01-18-2023 End: 01-18-2023 ambulatory Crystal Jose Other [facility] Other Start: 01-18-2023 Office outpatient ne w 30 minutes Crystal Damon [facility] Start: 01-25-2022 End: 01-26-[address] [place] Facility:[facility] Start: 11-29-2021 End: 11-30-[address] [place] [facility] Start: 03-03-2021 End: 03-04-[address] [place] [facility] Start: 01-31-2021 End: 02-01-[address] [place] Facility:[facility] Plan of Treatment Date Care Activity Detail Author DXA Skeletal system. axial Views for bone density [facility] enter XR Lumbar spine 2 or 3 Views [facility] Payers Date Payer Category Payer Medicare 2023 Unknown 1957 Medicare [id number] 1957 Unknown [id number] 1950 Unknown [id number] 2.16.84 [id number] 1950 Unknown [id number] 2.16.84 [id number] 1952 Unknown [id number] 2.16.84 [id number] 1952 Unknown [id number] 2.16.84 [id number] 1952 Unknown [id number] 2.16. [id number] 1952 Unknown [id number] 2.16. [id number] 1952 Unknown [id number] 2.16. [id number] 1952 Unknown [id number] 2.16. [id number] Unknown [facility] [id number] Social History Date Type Detail Facility Unknown if ever smoked [facility] Other Sex Assigned At Sex Assigned At Bir th [facility] Other Start: 11-29-2023 Tobacco smoking status NHIS Never smoked tobacco (finding) [facility] Start: 1950 Sex Assigned At Female [facility] Evaluation note 01-18-2023 Note Date & Type Note Facility 01-18-2023 Evaluation note Encounter Date Diagnosis Assessment Notes Jan, Piriformis syndrome of right side (ICD-10 - G57.01) Order for PT given to pt. Consider repeat xray, Neurosurgery referral. Requests short term rx of pain med. 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 [facility] Other Evaluation note Note Date & Type Note Facility Evaluation note No Information [facility] Other Evaluation note Note Date & Type Note Facility Evaluation note Diagnosis Onset Date Bilateral sacroiliitis acute Hyperglycemia acute Low vitamin D level acute Medicare annual wellness visit, subsequent acute Osteopenia acute Osteoporosis acute [facility] Work Phone: History general Narrative - Reported Note Date & Type Note Facility History general Narrative - Reported Type Medical History osteoporosis [facility] Other Summary Purpose Family History No Family [...] DATE CREATED AUTHOR AUTHOR'S ORGANIZ ATION 03/03/2024 [facility] REASON FOR VISIT (unrecogniz ed section [...] BE BASED ON THE PRIMARY CLINICAL RECORDS. [facility] [facility]. provides no warranty or guarantee of the accuracy or completeness of information in this document.
[2024-03-17 09:59] VITALS: BP 179/98; PULSE 98; TEMP 36.6; O2SAT 100
[2024-03-17 10:18] VITALS: BP 173/84; BP 178/83; PULSE 102; PULSE 96; O2SAT 99
[2024-03-17] MEDS: LIDOCAINE HCL 2% 400 MG/20 ML MDV 15 ML INJ (10:19)
[2024-03-17] MEDS: BUPIVACAINE HCL 0.25% PF 25 MG/10 ML VIAL 5 ML INJ (10:19)
[2024-03-17] MEDS: TRIAMCINOLONE ACETONIDE 40 MG/ML VIAL INJ (10:19)
[2024-03-17] MEDS: IOHEXOL 240 MG/ML - 10 ML VIAL INJ (10:20)
--- NOTE | 2024-03-17 10:22 | W.PM.PROCNOT ---
Date of procedure: 03/17/24 Pre-op diagnosis: Pain due to left sacroiliitis Post-op diagnosis: same as pre-op Procedure: Procedure: Left sacroiliac joint injection Medications: Bupivacaine 0.25% 3cc, kenalog 40mg After informed consent was obtained, the patient was brought to the medical procedure unit and placed in the prone position, when a timeout was completed verifying correct patient, procedure, site, positioning, implant, and/or special equipment.? The skin overlying the area was prepped and draped in standard sterile fashion using alcohol.? A 25-gauge needle was inserted towards the left sacroiliac joint under direct fluoroscopic imaging.? Needle tip was advanced until the joint was encountered.? We instilled a total of 2 mL of solution.? Postoperatively needles were removed.? The patient tolerated the procedure well without complication.? The patient reported reduction in pain symptoms postoperatively. Anesthesia: Local Surgeon: Lia Marcum Pathology: none sent Condition: stable Disposition: no change
== END 2024-03-17 10:26 | disposition home or self-care (01) ==
PROVIDERS: PCP Family Medicine; Visit Provider Anesthesiology
DX: M46.1 Sacroiliitis, not elsewhere classified (principal)
CPT/HCPCS: 27096; J0665; J3301; Q9966

== ENCOUNTER 2024-03-31 13:49 | Outpatient (OUT) | payer MEDICARE, OTHER, SELFPAY ==
--- OUTSIDE RECORDS SUMMARY | 2024-03-31 14:05 | XMS_ITS | CCD ---
Author Organization [facility] Care Team Providers Care Instructor Nurse Name Role Phone HOUSE, DR PICKARD Admitting Unavailable HOUSE, DR PICKARD Attending Unavailable HOUSE, DR PICKARD Consulting Unavailable [place], DR PICKARD Primary Care Unavailable HOUSE, DR PICKARD Admitting Unavailable HOUSE, DR PICKARD Attending Unavailable HOUSE, DR PICKARD Consulting Unavailable [place], DR PICKARD Primary Care Unavailable [facility], DR ELLIOTT Paredes Consulting Unavailable HOUSE, DR PICKARD Admitting Unavailable HOUSE, DR PICKARD Attending Unavailable HOUSE, DR PICKARD Consulting Unavailable [place], DR PICKARD Primary Care Unavailable [place], DR PICKARD Admitting Unavailable [place], DR PICKARD Attending Unavailable [place], DR PICKARD Consulting Unavailable [place], DR PICKARD Primary Care Unavailable Crystal Jose Unavailable Givillaitis , Lia Bartlett Attending Unavailable Giedraitis , Andjaclynus Dhruv Attending Unavailable Giedraitis , Andjaclynus Dhruv Attending Unavailable Gieditis , Andrius Dhruv Attending Unavailable Gieditis , Andmarichuy Bartlett Attending Unavailable Allergies Allergy Classification Reported Allergen(s) Allergy Type Date of Onset Reaction(s) Facility (3 sources) methylPREDNISolone Drug Allergy bad reaction [employer] [facility] theAudience Other Medications Current Medications Medication Drug Class(es) [...] sources) Calcitonin Start: 11-28-2023 End: 11-29-2023 Calcitonin ([place]) Active 1 SPRAY intranasal (ALT) Daily November [...] ELLIOTT BECERRIL Date: 2022-01-26 06:54 Normal [facility] MAMM SCREEN 3D KING CADon 01-25-2022 MG MAMM SCREEN 3D KING CAD Patient: ABBY STAHL Exam Date: 01/25/2022 : 1950 Gender:F Ordering : DR MELLY OH D.O. Admission #: [id number] Family : Order #: [id number] CLICK HERE TO VIEW EXAM RADIOLOGY REPORT [...] Treatments None Family Cancers None LOCATION: [facility] BREAST COMPOSITION: Heterogeneously dense,which may obscure [...] above: Performed By: #### C BC #### [facility] [address] [place] [address] Dr. Torri Gomez Basophils/100 WBC (Bld) 0.7 % Normal 0.2-2.0 [facility] Comment on above: Performed By: #### C BC #### [facility] [address] [place] [address] Dr. Torri Gomez EO # 0.1 103/ul Normal 0.0-0.7 [facility] Comment on above: Performed By: #### C BC #### [facility] [address] [place] [address] Dr. Torri Gomez Eosinophils/100 WBC (Bld) 2.4 % Normal 0.9-7.0 [facility] Comment on above: Performed By: #### C BC #### [facility] [address] [place] [address] Dr. Torri Gomez Erythrocyte distribution width (RBC) [Ratio] 11.7 % Normal 11.0-15.0 [facility] Comment on above: Performed By: #### C BC #### [facility] [address] [place] [address] Dr. Torri Gomez Hematocrit (Bld) [Volume fraction] 43.5 % Normal 36.0-48.0 [facility] Comment on above: Performed By: #### C BC #### [facility] [address] [place] [address] Dr. Torri Gomez Hemoglobin (Bld) [Mass/Vol] 14.2 g/dL Normal 12.0-16.0 [facility] Comment on above: Performed By: #### C BC #### [facility] [address] [place] [address] Dr. Torri Gomez IG # 0.01 10e3/ul Normal 0.00-0.03 [facility] Comment on above: Performed By: #### C BC #### [facility] [address] [place] [address] Dr. Torri Gomez IG % 0.2 % Normal 0.0-0.5 [facility] Comment on above: Performed By: #### C BC #### [facility] [address] [place] [address] Dr. Torri Gomez LYMPH # 1.5 103/ul Normal 1.2-3.8 [facility] Comment on above: Performed By: #### C BC #### [facility] [address] [place] [address] Dr. Torri Gomez Lymphocytes/100 WBC (Bld) 35.6 % Normal 20.5-60.0 [facility] Comment on above: Performed By: #### C BC #### [facility] [address] [place] [address] Dr. Torri Gomez MANUAL DIFF REQ NO Normal [facility] Comment on above: Performed By: #### C BC #### [facility] [address] [place] [address] Dr. Torri Gomez MCH (RBC) [Entitic mass] 32.3 pg Normal 26.7-34.0 [facility] Comment on above: Performed By: #### C BC #### [facility] [address] [place] [address] Dr. Torri Gomez MCHC (RBC) [Mass/Vol] 32.6 g/dL Normal 29.9-35.2 [facility] Comment on above: Performed By: #### C BC #### [facility] [address] [place] [address] Dr. Torri Gomez MCV (RBC) [Entitic vol] 98.9 fL Normal 81.0-99.0 [facility] Comment on above: Performed By: #### C BC #### [facility] [address] [place] [address] Dr. Torri Gomez MONO # 0.4 103/ul Normal 0.3-0.8 [facility] Comment on above: Performed By: #### C BC #### [facility] [address] [place] [address] Dr. Torri Gomez Monocytes/100 WBC (Bld) 9.8 % Normal 1.7-12.0 [facility] Comment on above: Performed By: #### C BC #### [facility] [address] [place] [address] Dr. Torri Gomez NEUT # 2.2 103/ul Normal 1.4-6.5 [facility] Comment on above: Performed By: #### C BC #### [facility] [address] [place] [address] Dr. Torri Gomez Neutrophils/100 WBC (Bld) 51.3 % Normal 43.0-75.0 [facility] Comment on above: Performed By: #### C BC #### [facility] [address] [place] [address] Dr. Torri Gomez Platelet mean volume (Bld) [Entitic vol] 10.4 fL Normal 9.5-13.5 [facility] Comment on above: Performed By: #### C BC #### [facility] [address] [place] [address] Dr. Torri Gomez PLT 269 103/ul Normal 150-450 [facility] Comment on above: Performed By: #### C BC #### [facility] [address] [place] [address] Dr. Torri Gomez RBC 4.40 106/ul Normal 4.20-5.40 [facility] Comment on above: Performed By: #### C BC #### [facility] [address] [place] [address] Dr. Torri Gomez WBC 4.2 103/ul Normal 4.0-11.0 [facility] Comment on above: Performed By: #### C BC #### [facility] [address] [place] [address] Dr. Torri Gomez GLYCOHEMOGLOBIN A1Con 2021 ADA RECOMMENDATION SEE BELOW Normal [facility] Comment on above: Result Comment: ADA RECOMMENDED LIMIT 4.0 - 6.0 ADA THERAPEUTIC TARGET < 7.0 ACTION SUGGESTED > 7.0 Performed By: #### M CHANTAL, CMP #### [facility] [address] [place] [address] Jesi Briscoe Glucose [Mass/Vol] 120 mg/dL Normal [facility] Comment on above: Performed By: #### M CHANTAL, CMP #### [facility] [address] [place] [address] Jesi Briscoe HbA1c (Bld) [Mass fraction] 5.8 % Normal 4.5-6.2 [facility] Comment on above: Performed By: #### M YO, CMP #### [facility] [address] [place] [address] eJsi Briscoe LIPID PROFILEon 11-29-2021 CHOL-HDL RATIO NORM SEE BELOW Normal [facility] Comment on above: Result Comment: 3.3 - 4.4 LOW RISK 4.4 - 7.1 AVERAGE RISK 7.1 - 11.0 MODERATE RISK >11.0 HIGH RISK Performed By: #### T 4, LIPID, TSH, CMP #### [facility] [address] [place] [address] Dr. Torri Gomez Cholesterol [Mass/Vol] 198 mg/dL Normal <=200 [facility] Comment on above: Performed By: #### T 4, LIPID, TSH, CMP #### [facility] [address] [place] [address] Dr. Torri Gomez Cholesterol in HDL [Mass/Vol] 79 mg/dL Critically high 40-60 [facility] Comment on above: Performed By: #### T 4, LIPID, TSH, CMP #### [facility] [address] [place] [address] Dr. Torri Gomez Cholesterol in LDL [Mass/Vol] 101.0 mg/dL Normal [facility] Comment on above: Performed By: #### T 4, LIPID, TSH, CMP #### [facility] [address] [place] [address] Dr. Torri Gomez Cholesterol.total/Cho lesterol in HDL [Mass ratio] 2.5 {ratio} Normal [facility] Comment on above: Performed By: #### T 4, LIPID, TSH, CMP #### [facility] [address] [place] [address] Dr. Torri Gomez HDL NORMAL > or = 60 mg/dl - LO W CARDIOVASCULAR RISK <40 mg/dl - HIGH CARDIOVASCULAR RISK Normal [facility] Comment on above: Performed By: #### T 4, LIPID, TSH, CMP #### [facility] [address] [address] [address] Torri Gomez LDL CALC NORMAL SEE BELOW Normal [facility] Comment on above: Result Comment: <100 mg/dl OPTIMAL 100 - 129 mg/dl NEAR OR ABOVE OPTIMAL 130 - 159 mg/dl BORDERLINE HIGH 160 - 189 mg/dl HIGH >190 mg/dl VERY HIGH Performed By: #### T 4, LIPID, TSH, CMP #### [facility] [address] [address] [address] Torri Gomez Triglyceride [Mass/Vol] 90 mg/dL Normal <=150 [facility] Comment on above: Performed By: #### T 4, LIPID, TSH, CMP #### [facility] [address] [address] [address] Torri Gomez VLDL CALC 18.0 mg/dL Normal [facility] Comment on above: Performed By: #### T 4, LIPID, TSH, CMP #### [facility] [address] [place] [address] Dr. Torri Gomez PROF 14(COMP METB)on 022 Albumin [Mass/Vol] 4.1 g/dL Normal 3.4-5.0 [facility] Comment on above: Performed By: #### T 4, LIPID, TSH, CMP #### [facility] [address] [address] [address] Torri Gomez Albumin/Globulin [Mass ratio] 1.2 {ratio} Normal [facility] Comment on above: Performed By: #### T 4, LIPID, TSH, CMP #### [facility] [address] [place] [address] Dr. Torri Gomez ALP [Catalytic activity/Vol] 88 U/L Normal 46-116 [facility] Comment on above: Performed By: #### T 4, LIPID, TSH, CMP #### [facility] [address] [address] [address] Torri Gomez ALT [Catalytic activity/Vol] 22 U/L Normal 14-59 [facility] Comment on above: Performed By: #### T 4, LIPID, TSH, CMP #### [facility] [address] [place] [address] Dr. Torri Gomez Anion gap [Moles/Vol] 13.6 mmol/L Normal [facility] Comment on above: Performed By: #### T 4, LIPID, TSH, CMP #### [facility] [address] [address] [address] Torri Gomez AST [Catalytic activity/Vol] 18 U/L Normal 15-37 [facility] Comment on above: Performed By: #### T 4, LIPID, TSH, CMP #### [facility] [address] [place] [address] Dr. Torri Gomez Bilirubin [Mass/Vol] 0.5 mg/dL Normal 0.2-1.0 [facility] Comment on above: Performed By: #### T 4, LIPID, TSH, CMP #### [facility] [address] [place] [address] Dr. Torri Gomez Calcium [Mass/Vol] 9.1 mg/dL Normal 8.5-10.1 [facility] Comment on above: Performed By: #### T 4, LIPID, TSH, CMP #### [facility] [address] [place] [address] Dr. Torri Gomez Chloride [Moles/Vol] 104 mmol/L Normal 98-107 [facility] Comment on above: Performed By: #### T 4, LIPID, TSH, CMP #### [facility] [address] [place] [address] Dr. Torri Gomez CO2 [Moles/Vol] 26.8 mmol/L Normal 21.0-32.0 [facility] Comment on above: Performed By: #### T 4, LIPID, TSH, CMP #### [facility] [address] [place] [address] Dr. Torri Gomez Creatinine [Mass/Vol] 1.06 mg/dL Critically high 0.55-1.02 [facility] Comment on above: Performed By: #### T 4, LIPID, TSH, CMP #### [facility] [address] [place] [address] Dr. Torri Gomez EGFR-AF ISRAELI >60 Normal >=60 [facility] Comment on above: Performed By: #### T 4, LIPID, TSH, CMP #### [facility] [address] [place] [address] Dr. Torri Gomez EGFR-NON AF ISRAELI 51 mL/min/1.73m2 Critically low >=60 [facility] Comment on above: Performed By: #### T 4, LIPID, TSH, CMP #### [facility] [address] [place] [address] Dr. Torri Gomez Globulin (S) [Mass/Vol] 3.4 g/dL Normal [facility] Comment on above: Performed By: #### T 4, LIPID, TSH, CMP #### [facility] [address] [place] [address] Dr. Torri Gomez Glucose [Mass/Vol] 93 mg/dL Normal 74-106 [facility] Comment on above: Performed By: #### T 4, LIPID, TSH, CMP #### [facility] [address] [place] [address] Dr. Torri Gomez Potassium [Moles/Vol] 4.4 mmol/L Normal 3.5-5.1 [facility] Comment on above: Performed By: #### T 4, LIPID, TSH, CMP #### [facility] [address] [place] [address] Dr. Torri Gomez Protein [Mass/Vol] 7.5 g/dL Normal 6.4-8.2 [facility] Comment on above: Performed By: #### T 4, LIPID, TSH, CMP #### [facility] [address] [place] [address] Dr. Torri Gomez Sodium [Moles/Vol] 140 mmol/L Normal 136-145 [facility] Comment on above: Performed By: #### T 4, LIPID, TSH, CMP #### [facility] [address] [place] [address] Dr. Torri Gomez Urea nitrogen [Mass/Vol] 21.0 mg/dL Critically high 7.0-18.0 [facility] Comment on above: Performed By: #### T 4, LIPID, TSH, CMP #### [facility] [address] [place] [address] Dr. Torri Gomez Urea nitrogen/Creatinine [Mass ratio] 19.8 mg/mg Normal [facility] Comment on above: Performed By: #### T 4, LIPID, TSH, CMP #### [facility] [address] [place] [address] Dr. Torri Gomez T4on 11-29-2021 T4 [Mass/Vol] 6.70 ug/dL Normal 4.80-13.90 [facility] Comment on above: Performed By: #### M CHANTAL, CMP #### [facility] [address] [place] [address] Jesi Briscoe TSHon 11-29-2021 TSH 2.359 uIU/mL Normal 0.358-3.740 [facility] Comment on above: Performed By: #### T 4, LIPID, TSH, CMP #### [facility] [address] [place] [address] Dr. Torri Gomez VITAMIN D 25 OHon 11-29-2021 VIT D 25-OH 70.8 ng/mL Normal [facility] Comment on above: Performed By: #### Danielle CORNEJO, CMP #### [facility] [address] [place] [address] Jesi Briscoe VIT D RANGES SEE BELOW Normal [facility] Comment on above: Result Comment: <20 ng/mL Vit D deficient 20 - <30 ng/mL Vit D insufficient 30 - 100 ng/mL Vit D sufficient >100 ng/mL Potential Toxicity Performed By: #### Danielle CORNEOJ, CMP #### [facility] [address] [place] [address] Jesi Briscoe PROF 14(COMP METB)on 021 Albumin [Mass/Vol] 4.0 g/dL Normal 3.5-5.0 [facility] Comment on above: Performed By: #### C MP #### [facility] [address] [place] [address] Dr. Torri Gomez Albumin/Globulin [Mass ratio] 1.2 {ratio} Normal [facility] Comment on above: Performed By: #### C MP #### [facility] [address] [place] [address] Dr. Torri Gomez ALP [Catalytic activity/Vol] 83 U/L Normal 38-126 [facility] Comment on above: Performed By: #### C MP #### [facility] [address] [address] [address] Torri Gomez ALT [Catalytic activity/Vol] 16 U/L Normal 9-52 [facility] Comment on above: Performed By: #### C MP #### [facility] [address] [address] [address] Torri Gomez Anion gap [Moles/Vol] 13.9 mmol/L Normal [facility] Comment on above: Performed By: #### C MP #### [facility] [address] [address] [address] Torri Gomez AST [Catalytic activity/Vol] 28 U/L Normal 14-36 [facility] Comment on above: Performed By: #### C MP #### [facility] [address] [address] [address] Torri Gomez Bilirubin [Mass/Vol] 0.6 mg/dL Normal 0.2-1.3 [facility] Comment on above: Performed By: #### C MP #### [facility] [address] [address] [address] Torri Gomez Calcium [Mass/Vol] 9.1 mg/dL Normal 8.4-10.2 [facility] Comment on above: Performed By: #### C MP #### [facility] [address] [address] [address] Torri Gomez Chloride [Moles/Vol] 103 mmol/L Normal 98-107 [facility] Comment on above: Performed By: #### C MP #### [facility] [address] [address] [address] Torri Gomez CO2 [Moles/Vol] 25.1 mmol/L Normal 22.0-30.0 [facility] Comment on above: Performed By: #### C MP #### [facility] [address] [address] [address] Torri Gomez Creatinine [Mass/Vol] 1.07 mg/dL Critically high 0.52-1.04 [facility] Comment on above: Performed By: #### C MP #### [facility] [address] [address] [address] Torri Gomez EGFR-AF ISRAELI >60 Normal >=60 [facility] Comment on above: Performed By: #### C MP #### [facility] [address] [address] [address] Torri Gomez EGFR-NON AF ISRAELI 51 mL/min/1.73m2 Critically low >=60 [facility] Comment on above: Performed By: #### C MP #### [facility] [address] [address] [address] Torri Gomez Globulin (S) [Mass/Vol] 3.4 g/dL Normal [facility] Comment on above: Performed By: #### C MP #### [facility] [address] [address] [address] Torri Gomez Glucose [Mass/Vol] 131 mg/dL Critically high 74-106 [facility] Comment on above: Performed By: #### C MP #### [facility] [address] [address] [address] Torri Gomez Potassium [Moles/Vol] 5.0 mmol/L Normal 3.4-5.0 [facility] Comment on above: Performed By: #### C MP #### [facility] [address] [address] [address] Torri Gomez Protein [Mass/Vol] 7.4 g/dL Normal 6.1-8.2 [facility] Comment on above: Performed By: #### C MP #### [facility] [address] [address] [address] Torri Gomez Sodium [Moles/Vol] 137 mmol/L Normal 137-145 [facility] Comment on above: Performed By: #### C MP #### [facility] [address] [address] [address] Torri Gomez Urea nitrogen [Mass/Vol] 26.0 mg/dL Critically high 7.0-17.0 [facility] Comment on above: Performed By: #### C MP #### [facility] [address] [place] [address] Dr. Torri Gomez Urea nitrogen/Creatinine [Mass ratio] 24.3 mg/mg Normal [facility] Comment on above: Performed By: #### C MP #### [facility] [address] [place] [address] Dr. Torri Gomez CBC AUTO DIFFon 01-31-2021 BASO # 0.0 103/ul Normal 0.0-0.1 [facility] Comment on above: Performed By: #### C BC #### [facility] [address] [place] [address] Jesi Rachna Basophils/100 WBC (Bld) 0.4 % Normal 0.2-2.0 [facility] Comment on above: Performed By: #### C BC #### [facility] [address] [place] [address] Jesi Rachna EO # 0.0 103/ul Normal 0.0-0.7 [facility] Comment on above: Performed By: #### C BC #### [facility] [address] [place] [address] Jesi Rachna Eosinophils/100 WBC (Bld) 0.6 % Critically low 0.9-7.0 [facility] Comment on above: Performed By: #### C BC #### [facility] [address] [place] [address] Jesi Rachna Erythrocyte distribution width (RBC) [Ratio] 11.9 % Normal 11.0-15.0 [facility] Comment on above: Performed By: #### C BC #### [facility] [address] [place] [address] Jesi Rachna Hematocrit (Bld) [Volume fraction] 38.5 % Normal 36.0-48.0 [facility] Comment on above: Performed By: #### C BC #### [facility] [address] [place] [address] Jesi Rachna Hemoglobin (Bld) [Mass/Vol] 12.1 g/dL Normal 12.0-16.0 [facility] Comment on above: Performed By: #### C BC #### [facility] [address] [id number] Jesi Rachna IG # 0.01 10e3/ul Normal 0.00-0.03 [facility] Comment on above: Performed By: #### C BC #### [facility] [address] [place], [place] [id number] Jesi Rachna IG % 0.1 % Normal 0.0-0.5 [facility] Comment on above: Performed By: #### C BC #### [facility] [address] [place] [address] Jesi Rachna LYMPH # 1.7 103/ul Normal 1.2-3.8 [facility] Comment on above: Performed By: #### C BC #### [facility] [address] [place] [address] Jesi Rachna Lymphocytes/100 WBC (Bld) 26.1 % Normal 20.5-60.0 [facility] Comment on above: Performed By: #### C BC #### [facility] [address] [place], [place] [id number] Jesisanaz Briscoe MANUAL DIFF REQ NO Normal [facility] Comment on above: Performed By: #### C BC #### [facility] [address] [place], [place] [id number] Jesi Rachna MCH (RBC) [Entitic mass] 31.8 pg Normal 26.7-34.0 [facility] Comment on above: Performed By: #### C BC #### [facility] [address] [place] [address] Jesisanaz Briscoe MCHC (RBC) [Mass/Vol] 31.4 g/dL Normal 29.9-35.2 [facility] Comment on above: Performed By: #### C BC #### [facility] [address] [place], [place] [id number] Jesi Rachna MCV (RBC) [Entitic vol] 101.0 fL Critically high 81.0-99.0 [facility] Comment on above: Performed By: #### C BC #### [facility] [address] [id number] Jesi Rachna MONO # 0.4 103/ul Normal 0.3-0.8 [facility] Comment on above: Performed By: #### C BC #### [facility] [address] [id number] Jesi Rachna Monocytes/100 WBC (Bld) 5.2 % Normal 1.7-12.0 [facility] Comment on above: Performed By: #### C BC #### [facility] [address] [place], [place] [id number] Jesi Rachna NEUT # 4.5 103/ul Normal 1.4-6.5 [facility] Comment on above: Performed By: #### C BC #### [facility] [address] [place], [place] [address] Jesi Rachna Neutrophils/100 WBC (Bld) 67.6 % Normal 43.0-75.0 [facility] Comment on above: Performed By: #### C BC #### [facility] [address] [place], [place] [address] Jesisanaz Lamaren Platelet mean volume (Bld) [Entitic vol] 10.3 fL Normal 9.5-13.5 [facility] Comment on above: Performed By: #### C BC #### [facility] [address] [place], [place] [address] Jesi Rachna PLT 329 103/ul Normal 150-450 [facility] Comment on above: Performed By: #### C BC #### [facility] [address] [place] [address] Jesi Rachna RBC 3.81 106/ul Critically low 4.20-5.40 [facility] Comment on above: Performed By: #### C BC #### [facility] [address] [place], [place] [address] Jesi Rachna WBC 6.7 103/ul Normal 4.0-11.0 [facility] Comment on above: Performed By: #### C BC #### [facility] [address] [place], [place] [address] Jesi Archna MYOGLOBINon 01-31-2021 JIMBO 44.0 ng/mL Normal <=61.5 [facility] Comment on above: Performed By: #### Danielle CORNEJO, CMP #### [facility] [address] [place], [place] [address] Jesisanaz Lamaren PROF 14(COMP METB)on 021 Albumin [Mass/Vol] 3.7 g/dL Normal 3.5-5.0 [facility] Comment on above: Performed By: #### Danielle CORNEJO, CMP #### [facility] [address] [place], [place] [id number] Jesi Rachna Albumin/Globulin [Mass ratio] 0.9 {ratio} Normal [facility] Comment on above: Performed By: #### Danielle CORNEJO, CMP #### [facility] [address] [place] [address] Jesi Rachna ALP [Catalytic activity/Vol] 81 U/L Normal 38-126 [facility] Comment on above: Performed By: #### Danielle CORNEJO, CMP #### [facility] [address] [place] [address] Jesi Rachna ALT [Catalytic activity/Vol] 17 U/L Normal 9-52 [facility] Comment on above: Performed By: #### Danielle CORNEJO, CMP #### [facility] [address] [place], [place] [id number] Jesi Rachna Anion gap [Moles/Vol] 15.1 mmol/L Normal [facility] Comment on above: Performed By: #### Danielle CORNEJO, CMP #### [facility] [address] [place], [place] [id number] Jesi Rachna AST [Catalytic activity/Vol] 26 U/L Normal 14-36 [facility] Comment on above: Performed By: #### Danielle CORNEJO, CMP #### [facility] [address] [place], [place] [id number] Jesi Rachna Bilirubin [Mass/Vol] 0.3 mg/dL Normal 0.2-1.3 [facility] Comment on above: Performed By: #### Danielle CORNEJO, CMP #### [facility] [address] [place], [place] [address] Jesi Rachna Calcium [Mass/Vol] 9.4 mg/dL Normal 8.4-10.2 [facility] Comment on above: Performed By: #### M YO, CMP #### [facility] [address] [place], [place] [address] Jesi Rachna Chloride [Moles/Vol] 104 mmol/L Normal 98-107 [facility] Comment on above: Performed By: #### M YO, CMP #### [facility] [address] [place] [address] Jesi Rachna CO2 [Moles/Vol] 26.0 mmol/L Normal 22.0-30.0 [facility] Comment on above: Performed By: #### M YO, CMP #### [facility] [address] [place] [address] Jesi Rachna Creatinine [Mass/Vol] 1.21 mg/dL Critically high 0.52-1.04 [facility] Comment on above: Performed By: #### Danielle CORNEJO, CMP #### [facility] [address] [place] [address] Jesi Rachna EGFR-AF ISRAELI 54 mL/min/1.73m2 Critically low >=60 [facility] Comment on above: Performed By: #### Danielle CORNEJO, CMP #### [facility] [address] [place] [address] Jesi Rachna EGFR-NON AF ISRAELI 44 mL/min/1.73m2 Critically low >=60 [facility] Comment on above: Performed By: #### Danielle YO, CMP #### [facility] [address] [place] [address] Jesi Rachna Globulin (S) [Mass/Vol] 3.9 g/dL Normal [facility] Comment on above: Performed By: #### M YO, CMP #### [facility] [address] [place], [place] [address] Jesi Rachna Glucose [Mass/Vol] 138 mg/dL Critically high 74-106 [facility] Comment on above: Performed By: #### M YO, CMP #### [facility] [address] [place] [address] Jesi Rachna Potassium [Moles/Vol] 4.1 mmol/L Normal 3.4-5.0 [facility] Comment on above: Performed By: #### Danielle CORNEJO, CMP #### [facility] [address] [id number] Jesi Rachna Protein [Mass/Vol] 7.6 g/dL Normal 6.1-8.2 [facility] Comment on above: Performed By: #### Danielle CORNEJO, CMP #### [facility] [address] [id number] Jesi Rachna Sodium [Moles/Vol] 141 mmol/L Normal 137-145 [facility] Comment on above: Performed By: #### Danielle CORNEJO, CMP #### [facility] [address] [id number] Jesi Rachna Urea nitrogen [Mass/Vol] 19.0 mg/dL Critically high 7.0-17.0 [facility] Comment on above: Performed By: #### Danielle CORNEJO, CMP #### [facility] [address] [address] Jesi Rachna Urea nitrogen/Creatinine [Mass ratio] 15.7 mg/mg Normal [facility] Comment on above: Performed By: #### Danielle CORNEJO, CMP #### [facility] [address] [id number] Jesi Rachna SED RATE [facility] 2020 SED RATE 66 mm/hr Critically high <=30 [facility] Comment on above: Performed By: #### Danielle CORNEJO, CMP #### [facility] [address] [id number] Jesi Rachna Vital Signs Date Time Vital Sign Value Performing Clinician Facility 11-29-2023 13:43040 Body height 160.02 cm [facility] 11-29-2023 13:43040 Body mass index (BMI) [Ratio] 20.9 kg/m2 [facility] 11-29-2023 13:43040 Body weight 53.52 kg [facility] 11-29-2023 13:43-0400 Diastolic blood pressure 81 mm[Hg] [facility] 11-29-2023 13:43-0400 Heart rate 109 /min [facility] 11-29-2023 13:43-0400 Systolic blood pressure 128 mm[Hg] [facility] 01-18-2023 13:00-0400 Body height 160.02 cm Crystal Jose [facility] Other 01-18-2023 13:00-0400 Body mass index (BMI) [Ratio] 20.72 kg/m2 Crystal Jose [facility] 01-18-2023 13:00-0400 Body weight 53.07 kg Crystal Jose [facility] Other 01-18-2023 13:00-0400 Diastolic blood pressure 84 mm[Hg] Crystal Jose [facility] Other 01-18-2023 13:00-0400 Systolic blood pressure 134 mm[Hg] Crystal [facility] Other Encounters Encounter Date Encounter Type Care Provider Facility Start: 03-10-2024 End: 03-10-2024 ambulatory Lia Marcum MD [facility] Start: 02-25-2024 End: 02-25-2024 ambulatory Lia Marcum MD [facility]: [facility] Start: 01-21-2024 End: 01-21-2024 ambulatory Lia Marcum MD [facility]: [facility] Start: 01-14-2024 End: 01-14-2024 ambulatory Lia Marcum MD Facility: [facility] Start: 01-07-2024 End: 01-07-2024 ambulatory Lia Marcum MD Facility: [facility] Start: 11-29-2023 End: 11-29-2023 ambulatory [facility] Work Phone: Start: 11-29-2023 End: 11-29-2023 Patient encounter procedure [facility] Work Phone: Start: 01-30-2023 End: 01-30-2023 ambulatory Crystal Damon [facility] Other Start: 01-30-2023 Telephone encounter Crystal Jose [facility] Start: 01-19-2023 End: 01-19-2023 ambulatory Crystal Damon [facility] Other Start: 01-19-2023 Telephone encounter Crystal Damon [facility] Start: 01-18-2023 End: 01-18-2023 ambulatory Crystal Damon [facility] Other Start: 01-18-2023 Office outpatient ne w 30 minutes Crystal Jose [facility] Start: 01-25-2022 End: 01-26-[address] [place] Facility:[facility] Start: 11-29-2021 End: 11-30-[address] [place] Facility:[facility] Start: 03-03-2021 End: 03-04-[address] [place] Facility:[facility] Start: 01-31-2021 End: 02-01-[address] [place] Facility:[facility] Plan of Treatment Date Care Activity Detail Author DXA Skeletal system. axial Views for bone density [facility] enter XR Lumbar spine 2 or 3 Views [facility] Payers Date Payer Category Payer Medicare 2023 Unknown 1959 Medicare [id number] 1957 Unknown [id number] 1950 Unknown [id number] 2.16.84 [id number] 1952 Unknown [id number] .16.84 [id number] 1952 Unknown [id number] 2.16.84 [id number] 1952 Unknown [id number] 2.16.84 [id number] 1952 Unknown [id number] 2.16. [id number] 1952 Unknown [id number] 2.16. [id number] 1952 Unknown [id number] 2.16. [id number] 1952 Unknown [id number] 2.16. [id number] 1952 Unknown [id number] 2.16. [id number] Unknown [facility] [id number] Social History Date Type Detail Facility Unknown if ever smoked [facility] Other Sex Assigned At Sex Assigned At Bir th [facility] Other Start: 11-29-2023 Tobacco smoking status NHIS Never smoked tobacco (finding) [facility] Start: 1950 Sex Assigned At Female F [facility] Evaluation note 01-18-2023 Note Date & Type Note Facility 01-18-2023 Evaluation note Encounter Date Diagnosis Assessment Notes Jan, Piriformis syndrome of right side (ICD-10 - G57.01) Order for PT given to pt. Consider repeat xray, Neurosurgery referral. Requests short term rx of pain med. 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 [facility] Other Evaluation note Note Date & Type Note Facility Evaluation note No Information [employer] Other Evaluation note Note Date & Type Note Facility Evaluation note Diagnosis Onset Date Bilateral sacroiliitis acute Hyperglycemia acute Low vitamin D level acute Medicare annual wellness visit, subsequent acute Osteopenia acute Osteoporosis acute [facility] Work Phone: History general Narrative - Reported Note Date & Type Note Facility History general Narrative - Reported Type Medical History osteoporosis [facility] Other Summary Purpose Family History No Family [...] pital DATE CREATED AUTHOR AUTHOR'S ORGANIZ ATION 03/19/2024 [facility] REASON FOR VISIT (unrecogniz ed section [...] BE BASED ON THE PRIMARY CLINICAL RECORDS. [employer] provides no warranty or guarantee of the accuracy or completeness of information in this document.
--- NOTE | 2024-03-31 15:40 | P.CN_ITS ---
Consult Note: HPI Data of Consult Patient: known to practice within the last 3 years Consult date: 03/31/24 Requesting Physician: Lia Marcum MD Primary Care Provider: Crystal Jose MD Consult Narrative Reason for consult: low back pain Narrative: 73yof who presents for assessment. continues to have low back pain. is very active and does lots of stretches and exercises. uses otc meds as needed. cc:: CC: Lia Marcum MD Review of Systems ROS Status of ROS 10 or more systems reviewed and unremark able except as noted in history and below [facility] Medical History Osteoporosis ?M81.0 - Age-related osteoporosis without current pathological fracture (ICD- 10) Low back pain ?M54.50 - Low back pain, unspecified (ICD-10) Scoliosis ?M41.9 - Scoliosis, unspecified (ICD-10) Meds Home Medications and Allergies Home Medications ?Medication ?Instructions ?Recorded ?Confirmed ?Type [id number] 250 1 tab PO Q6H PRN pain 12/27/23 03/17/24 History mg-250 mg-65 mg tablet (Excedrin Extra Strength) calcitonin (salmon) 200 1 spray intranasal DAILY 12/27/23 03/17/24 History unit/actuation nasal spray calcium 600 mg-D3 800 unit-mag11 1 tab PO DAILY 12/27/23 03/17/24 History 50 zm-dpal-jebyfh-rita-s.borat tablet (Caltrate 600-D Plus Minerals) doxycycline hyclate 50 mg capsule 50 mg PO Q24H 12/27/23 03/17/24 History ibuprofen 200 mg tablet (Advil) 200 mg PO Q8H PRN pain 12/27/23 03/17/24 History magnesium 250 mg tablet 250 mg PO DAILY 12/27/23 03/17/24 History metronidazole 0.75 % topical gel 1 applic topical DAILY 12/27/23 03/17/24 History raloxifene 60 mg tablet 60 mg PO DAILY 12/27/23 03/17/24 History Allergies Allergy/AdvReac Type Severity Reaction Status Date / Time methylprednisolone Allergy Unknown Verified 03/17/24 09:57 Exam Narrative Exam Narrative: Psych-alert and oriented x 3. Attentive and appropriate, constitutionally normal, displays normal mood and affect per situation.? There are no obvious deficits in memory, reasoning, or intellect.? Skin-no obvious rashes, bruising, erythema noted to the patient's area of pain. Extremities- extremities are warm with minimal edema and palpable pulses. Lumbar-no significant tenderness to palpation noted in the lumbar spine and paraspinal musculature.? Pain is elicited with extension, and lateral rotation of the lumbar spine. Range of motion is slightly diminished with these motions due to pain. Coordination remains intact.? Gait remains non-antalgic. Assessment and Plan Assessment and Plan (1) Chronic bilateral low back pain: Qualifiers: Sciatica presence: without sciatica Qualified Code(s): M54.50 - Low back pain, unspecified; G89.29 - Other chronic pain (2) Lumbar spondylosis: Plan 73yof who presents for assessment. continues to have bilateral buttock and low back pain. at this point, will have her engage in physical therapy twice weekly for 4-6 weeks. she is in agreement. meds reviewed, no changes. follow up after therapy.
== END 2024-03-31 13:50 | disposition home or self-care (01) ==
LOC: PM 13:50
PROVIDERS: PCP Family Medicine; Visit Provider Anesthesiology
DX: M54.50 Low back pain, unspecified (principal); G89.29 Other chronic pain
CPT/HCPCS: G0463

== ENCOUNTER 2024-11-14 07:39 | Outpatient (OUT) | payer MEDICARE, OTHER, SELFPAY ==
--- OUTSIDE RECORDS SUMMARY | 2024-11-14 07:44 | XMS_ITS | Clinical Summary ---
Author Organization [facility] Address [address] [place] [address] Care Team Providers Care Customs Appraiser Name Role Phone Unavailable Primary Care Provider Unavailabl e Medications doxycycline (Vibramycin) 50 MG capsuleIndicati ons:Rosacea TAKE 1 CAPSULE BY MOUTH EVERY DAY 90 capsule 08/02/2023 Active Social History Tobacco Use Types Packs/Day Years Used Date Smoking Tobacco: Never Assessed Comments Unknown Sex and Gender Information Value Date Recorded Sex Assigned at Female 03/13/2023 11:19 AM EDT Legal Sex Female 8:00 PM EDT Gender Identity Female 03/13/2023 11:19 AM EDT Sexual Orientation Straight 03/13/2023 11 :19 AM EDT Last Filed Vital Signs Vital Sign Reading Time Taken Comments Blood Pressure 147/97 04/29/2019 12:00 PM EST Pulse - - Temperature - - Respiratory Rate - - Oxygen Saturation - - Inhaled Oxygen Concentration - - Weight 54.4 kg (120 lb) 05/04/2022 12:00 PM EST Height 162.6 cm (5' 4 ) 09/11/2022 12:00 PM EDT Body Mass Index 20.6 05/04/2022 12:00 PM EST Plan of Treatment Not on file Insurance MEDICARE
--- OUTSIDE RECORDS SUMMARY | 2024-11-14 07:45 | XMS_ITS | CCD ---
Author Organization [facility] Care Team Providers Care Correction Officer Head Name Role Phone HOUSE, DR PICKARD Admitting Unavailable HOUSE, DR PICKARD Attending Unavailable HOUSE, DR PICKARD Consulting Unavailable MUSSELSHELL, DR PICKARD Primary Care Unavailable HOUSE, DR PICKARD Admitting Unavailable HOUSE, DR PICKARD Attending Unavailable HOUSE, DR PICKARD Consulting Unavailable MUSSELSHELL, DR PICKARD Primary Care Unavailable [facility], DR ELLIOTT Paredes Consulting Unavailable HOUSE, DR PICKARD Admitting Unavailable HOUSE, DR PICKARD Attending Unavailable HOUSE, DR PICKARD Consulting Unavailable MUSSELSHELL, DR PICKARD Primary Care Unavailable MUSSELSHELL, DR PICKARD Admitting Unavailable MUSSELSHELL, DR PICKARD Attending Unavailable HOUSE, DR PICKARD Consulting Unavailable MUSSELSHELL, DR PICKARD Primary Care Unavailable Crystal Jose Unavailable Giedraitis , Andrius Dhruv Attending Unavailable Giedraitis , Andrius Vytgwendolyn Attending Unavailable Giedraitis , Andrius Vytgwendolyn Attending Unavailable Giedraitis , Andrius Vytautfadumo Attending Unavailable Giedraitis , Andrius Vytautas Attending Unavailable Giedraitis , Andrius Vytautas Attending Unavailable Giedraitis , Andrius Vytautfadumo Attending Unavailable Giedraitis , Andrius Vytautfadumo Attending Unavailable Allergies Allergy Classification Reported Allergen(s) Allergy Type Date of Onset Reaction(s) Facility (3 sources) methylPREDNISolone Drug Allergy bad reaction [facility] Other Medications Current Medications Medication Drug Class(es) [...] sources) Calcitonin Start: 11-28-2023 End: 11-29-2023 Calcitonin ([place]) Active 1 SPRAY intranasal (ALT) Daily November [...] by: ELLIOTT BECERRIL Date: 2022-01-26 06:54 Normal [facility] MG MAMM SCREEN 3D KING CADon 01-25-2022 MG MAMM SCREEN 3D KING CAD Patient: ABBY STAHL Exam Date: 01/25/2022 : 1950 Gender:F Ordering : DR MELLY OH DDick Admission #: [id number] Family : Order #: [id number] CLICK HERE TO VIEW EXAM RADIOLOGY REPORT [...] Treatments None Family Cancers None LOCATION: [facility] BREAST COMPOSITION: Heterogeneously dense,which may obscure small [...] Becerril M.D. on 01/25/2022 at 13:54 Normal [facility] CBC AUTO DIFFon 11-29-2021 BASO # 0.0 103/ul Normal 0.0-0.1 [facility] Comment on above: Performed By: #### C BC #### [facility] [address] [place] [address] Dr. Torri Gomez Basophils/100 WBC (Bld) 0.7 % Normal 0.2-2.0 [facility] Comment on above: Performed By: #### C BC #### [facility] [address] [place] [address] Dr. Torri Gomez EO # 0.1 103/ul Normal 0.0-0.7 [facility] Comment on above: Performed By: #### C BC #### [facility] [address] [place] [address] Dr. Torri Gomez Eosinophils/100 WBC (Bld) 2.4 % Normal 0.9-7.0 [facility] Comment on above: Performed By: #### C BC #### [facility] [address] [place] [address] Dr. Torri Gomez Erythrocyte distribution width (RBC) [Ratio] 11.7 % Normal 11.0-15.0 [facility] Comment on above: Performed By: #### C BC #### [facility] [address] [place] [address] Dr. Torri Gomez Hematocrit (Bld) [Volume fraction] 43.5 % Normal 36.0-48.0 [facility] Comment on above: Performed By: #### C BC #### [facility] [address] [place] [address] Dr. Torri Gomez Hemoglobin (Bld) [Mass/Vol] 14.2 g/dL Normal 12.0-16.0 [facility] Comment on above: Performed By: #### C BC #### [facility] [address] [place] [address] Dr. Torri Gomez IG # 0.01 10e3/ul Normal 0.00-0.03 [facility] Comment on above: Performed By: #### C BC #### [facility] [address] [place] [address] Dr. oTrri Gomez IG % 0.2 % Normal 0.0-0.5 [facility] Comment on above: Performed By: #### C BC #### [facility] [address] [place] [address] Dr. Torri Gomez LYMPH # 1.5 103/ul Normal 1.2-3.8 [facility] Comment on above: Performed By: #### C BC #### [facility] [address] [place] [address] Dr. Torri Gomez Lymphocytes/100 WBC (Bld) 35.6 % Normal 20.5-60.0 [facility] Comment on above: Performed By: #### C BC #### [facility] [address] [place] [address] Dr. Torri Gomez MANUAL DIFF REQ NO Normal [facility] Comment on above: Performed By: #### C BC #### [facility] [address] [place] [address] Dr. Torri Gomez MCH (RBC) [Entitic mass] 32.3 pg Normal 26.7-34.0 [facility] Comment on above: Performed By: #### C BC #### [facility] [address] [place] [address] Dr. Torri Gomez MCHC (RBC) [Mass/Vol] 32.6 g/dL Normal 29.9-35.2 [facility] Comment on above: Performed By: #### C BC #### [facility] [address] [place] [address] Dr. Torri Gomez MCV (RBC) [Entitic vol] 98.9 fL Normal 81.0-99.0 [facility] Comment on above: Performed By: #### C BC #### [facility] [address] [place] [address] Dr. Torri Gomez MONO # 0.4 103/ul Normal 0.3-0.8 [facility] Comment on above: Performed By: #### C BC #### [facility] [address] [place] [address] Dr. Torri Gomez Monocytes/100 WBC (Bld) 9.8 % Normal 1.7-12.0 [facility] Comment on above: Performed By: #### C BC #### [facility] [address] [place] [address] Dr. Torri Gomez NEUT # 2.2 103/ul Normal 1.4-6.5 [facility] Comment on above: Performed By: #### C BC #### [facility] [address] [place] [address] Dr. Torri Gomez Neutrophils/100 WBC (Bld) 51.3 % Normal 43.0-75.0 [facility] Comment on above: Performed By: #### C BC #### [facility] [address] [place] [address] Dr. Torri Gomez Platelet mean volume (Bld) [Entitic vol] 10.4 fL Normal 9.5-13.5 [facility] Comment on above: Performed By: #### C BC #### [facility] [address] [place] [address] Dr. Torri Gomez PLT 269 103/ul Normal 150-450 [facility] Comment on above: Performed By: #### C BC #### [facility] [address] [place] [address] Dr. Torri Gomez RBC 4.40 106/ul Normal 4.20-5.40 [facility] Comment on above: Performed By: #### C BC #### [facility] [address] [place] [address] Dr. Torri Gomez WBC 4.2 103/ul Normal 4.0-11.0 [facility] Comment on above: Performed By: #### C BC #### [facility] [address] [place] [address] Dr. Torri Gomez GLYCOHEMOGLOBIN A1Con 2021 ADA RECOMMENDATION SEE BELOW Normal [facility] Comment on above: Result Comment: ADA RECOMMENDED LIMIT 4.0 - 6.0 ADA THERAPEUTIC TARGET < 7.0 ACTION SUGGESTED > 7.0 Performed By: #### M YO, CMP #### [facility] [address] [place] [address] Jesi Briscoe Glucose [Mass/Vol] 120 mg/dL Normal [facility] Comment on above: Performed By: #### M YO, CMP #### [facility] [address] [address] Jesi Briscoe HbA1c (Bld) [Mass fraction] 5.8 % Normal 4.5-6.2 [facility] Comment on above: Performed By: #### M YO, CMP #### [facility] [address] [address] Jesi Briscoe LIPID PROFILEon 11-29-2021 CHOL-HDL RATIO NORM SEE BELOW Normal [facility] Comment on above: Result Comment: 3.3 - 4.4 LOW RISK 4.4 - 7.1 AVERAGE RISK 7.1 - 11.0 MODERATE RISK >11.0 HIGH RISK Performed By: #### T 4, LIPID, TSH, CMP #### [facility] [address] [address] [address] Torri Gomez Cholesterol [Mass/Vol] 198 mg/dL Normal <=200 [facility] Comment on above: Performed By: #### T 4, LIPID, TSH, CMP #### [facility] [address] [address] [address] Torri Gomez Cholesterol in HDL [Mass/Vol] 79 mg/dL Critically high 40-60 [facility] Comment on above: Performed By: #### T 4, LIPID, TSH, CMP #### [facility] [address] [address] [address] Torri Gomez Cholesterol in LDL [Mass/Vol] 101.0 mg/dL Normal [facility] Comment on above: Performed By: #### T 4, LIPID, TSH, CMP #### [facility] [address] [address] [address] Torri Gomez Cholesterol.total/Cho lesterol in HDL [Mass ratio] 2.5 {ratio} Normal [facility] Comment on above: Performed By: #### T 4, LIPID, TSH, CMP #### [facility] [address] [address] [address] Torri Gomez HDL NORMAL > or = 60 mg/dl - LO W CARDIOVASCULAR RISK <40 mg/dl - HIGH CARDIOVASCULAR RISK Normal [facility] Comment on above: Performed By: #### T 4, LIPID, TSH, CMP #### [facility] [address] [address] [address] Torri Gomez LDL CALC NORMAL SEE BELOW Normal [facility] Comment on above: Result Comment: <100 mg/dl OPTIMAL 100 - 129 mg/dl NEAR OR ABOVE OPTIMAL 130 - 159 mg/dl BORDERLINE HIGH 160 - 189 mg/dl HIGH >190 mg/dl VERY HIGH Performed By: #### T 4, LIPID, TSH, CMP #### [facility] [address] [address] [address] Torri Gomez Triglyceride [Mass/Vol] 90 mg/dL Normal <=150 [facility] Comment on above: Performed By: #### T 4, LIPID, TSH, CMP #### [facility] [address] [place] [address] Dr. Torri Gomez VLDL CALC 18.0 mg/dL Normal [facility] Comment on above: Performed By: #### T 4, LIPID, TSH, CMP #### [facility] [address] [address] [address] Torri Gomez PROF 14(COMP METB)on 022 Albumin [Mass/Vol] 4.1 g/dL Normal 3.4-5.0 [facility] Comment on above: Performed By: #### T 4, LIPID, TSH, CMP #### [facility] [address] [address] [address] Torri Gomez Albumin/Globulin [Mass ratio] 1.2 {ratio} Normal [facility] Comment on above: Performed By: #### T 4, LIPID, TSH, CMP #### [facility] [address] [address] [address] Torri Gomez ALP [Catalytic activity/Vol] 88 U/L Normal 46-116 [facility] Comment on above: Performed By: #### T 4, LIPID, TSH, CMP #### [facility] [address] [address] [address] Torri Gomez ALT [Catalytic activity/Vol] 22 U/L Normal 14-59 [facility] Comment on above: Performed By: #### T 4, LIPID, TSH, CMP #### [facility] [address] [address] [address] Torri Gomez Anion gap [Moles/Vol] 13.6 mmol/L Normal [facility] Comment on above: Performed By: #### T 4, LIPID, TSH, CMP #### [facility] [address] [place] [address] Dr. Torri Gomez AST [Catalytic activity/Vol] 18 U/L Normal 15-37 [facility] Comment on above: Performed By: #### T 4, LIPID, TSH, CMP #### [facility] [address] [place] [address] Dr. Torri Gomez Bilirubin [Mass/Vol] 0.5 mg/dL Normal 0.2-1.0 [facility] Comment on above: Performed By: #### T 4, LIPID, TSH, CMP #### [facility] [address] [place] [address] Dr. Torri Gomez Calcium [Mass/Vol] 9.1 mg/dL Normal 8.5-10.1 [facility] Comment on above: Performed By: #### T 4, LIPID, TSH, CMP #### [facility] [address] [place] [address] Dr. Torri Gomez Chloride [Moles/Vol] 104 mmol/L Normal 98-107 [facility] Comment on above: Performed By: #### T 4, LIPID, TSH, CMP #### [facility] [address] [place] [address] Dr. Torri Gomez CO2 [Moles/Vol] 26.8 mmol/L Normal 21.0-32.0 [facility] Comment on above: Performed By: #### T 4, LIPID, TSH, CMP #### [facility] [address] [place] [address] Dr. Torri Gomez Creatinine [Mass/Vol] 1.06 mg/dL Critically high 0.55-1.02 [facility] Comment on above: Performed By: #### T 4, LIPID, TSH, CMP #### [facility] [address] [address] [address] Torri Gomez EGFR-AF EQUATORIAL GUINEAN >60 Normal >=60 [facility] Comment on above: Performed By: #### T 4, LIPID, TSH, CMP #### [facility] [address] [address] [address] Torri Gomez EGFR-NON AF EQUATORIAL GUINEAN 51 mL/min/1.73m2 Critically low >=60 [facility] Comment on above: Performed By: #### T 4, LIPID, TSH, CMP #### [facility] [address] [address] [address] Torri Gomez Globulin (S) [Mass/Vol] 3.4 g/dL Normal [facility] Comment on above: Performed By: #### T 4, LIPID, TSH, CMP #### [facility] [address] [address] [address] Torri Gomez Glucose [Mass/Vol] 93 mg/dL Normal 74-106 [facility] Comment on above: Performed By: #### T 4, LIPID, TSH, CMP #### [facility] [address] [address] [address] Torri Gomez Potassium [Moles/Vol] 4.4 mmol/L Normal 3.5-5.1 [facility] Comment on above: Performed By: #### T 4, LIPID, TSH, CMP #### [facility] [address] [address] [address] Torri Gomez Protein [Mass/Vol] 7.5 g/dL Normal 6.4-8.2 [facility] Comment on above: Performed By: #### T 4, LIPID, TSH, CMP #### [facility] [address] [address] [address] Torri Gomez Sodium [Moles/Vol] 140 mmol/L Normal 136-145 [facility] Comment on above: Performed By: #### T 4, LIPID, TSH, CMP #### [facility] [address] [address] [address] Torri Gomez Urea nitrogen [Mass/Vol] 21.0 mg/dL Critically high 7.0-18.0 [facility] Comment on above: Performed By: #### T 4, LIPID, TSH, CMP #### [facility] [address] [place] [address] Dr. Torri Gomez Urea nitrogen/Creatinine [Mass ratio] 19.8 mg/mg Normal [facility] Comment on above: Performed By: #### T 4, LIPID, TSH, CMP #### [facility] [address] [place] [address] Dr. Torri Gomez T4on 11-29-2021 T4 [Mass/Vol] 6.70 ug/dL Normal 4.80-13.90 [facility] Comment on above: Performed By: #### M YO, CMP #### [facility] [address] [place] [address] Jesi Briscoe TSHon 11-29-2021 TSH 2.359 uIU/mL Normal 0.358-3.740 [facility] Comment on above: Performed By: #### T 4, LIPID, TSH, CMP #### [facility] [address] [place] [address] Dr. Torri Gomez VITAMIN D 25 OHon 11-29-2021 VIT D 25-OH 70.8 ng/mL Normal [facility] Comment on above: Performed By: #### M YO, CMP #### [facility] [address] [place] [address] Jesi Briscoe VIT D RANGES SEE BELOW Normal [facility] Comment on above: Result Comment: <20 ng/mL Vit D deficient 20 - <30 ng/mL Vit D insufficient 30 - 100 ng/mL Vit D sufficient >100 ng/mL Potential Toxicity Performed By: #### M YO, CMP #### [facility] [address] [place] [address] Jesi Briscoe PROF 14(COMP METB)on 021 Albumin [Mass/Vol] 4.0 g/dL Normal 3.5-5.0 [facility] Comment on above: Performed By: #### C MP #### [facility] [address] [place] [address] Dr. Torri Gomez Albumin/Globulin [Mass ratio] 1.2 {ratio} Normal [facility] Comment on above: Performed By: #### C MP #### [facility] [address] [place] [address] Dr. Torri Gomez ALP [Catalytic activity/Vol] 83 U/L Normal 38-126 [facility] Comment on above: Performed By: #### C MP #### [facility] [address] [address] [address] Torri Gomez ALT [Catalytic activity/Vol] 16 U/L Normal 9-52 [facility] Comment on above: Performed By: #### C MP #### [facility] [address] [address] [address] Torri Gomez Anion gap [Moles/Vol] 13.9 mmol/L Normal [facility] Comment on above: Performed By: #### C MP #### [facility] [address] [place] [address] Dr. Torri Gomez AST [Catalytic activity/Vol] 28 U/L Normal 14-36 [facility] Comment on above: Performed By: #### C MP #### [facility] [address] [address] [address] Torri Gomez Bilirubin [Mass/Vol] 0.6 mg/dL Normal 0.2-1.3 [facility] Comment on above: Performed By: #### C MP #### [facility] [address] [address] [address] Torri Gomez Calcium [Mass/Vol] 9.1 mg/dL Normal 8.4-10.2 [facility] Comment on above: Performed By: #### C MP #### [facility] [address] [address] [address] Torri Gomez Chloride [Moles/Vol] 103 mmol/L Normal 98-107 [facility] Comment on above: Performed By: #### C MP #### [facility] [address] [address] [address] Torri Gomez CO2 [Moles/Vol] 25.1 mmol/L Normal 22.0-30.0 [facility] Comment on above: Performed By: #### C MP #### [facility] [address] [address] [address] Torri Gomez Creatinine [Mass/Vol] 1.07 mg/dL Critically high 0.52-1.04 [facility] Comment on above: Performed By: #### C MP #### [facility] [address] [address] [address] Torri Gomez EGFR-AF EQUATORIAL GUINEAN >60 Normal >=60 [facility] Comment on above: Performed By: #### C MP #### [facility] [address] [address] [address] Torri Gomez EGFR-NON AF EQUATORIAL GUINEAN 51 mL/min/1.73m2 Critically low >=60 [facility] Comment on above: Performed By: #### C MP #### [facility] [address] [place] [address] Dr. Torri Gomez Globulin (S) [Mass/Vol] 3.4 g/dL Normal [facility] Comment on above: Performed By: #### C MP #### [facility] [address] [address] [address] Torri Gomez Glucose [Mass/Vol] 131 mg/dL Critically high 74-106 [facility] Comment on above: Performed By: #### C MP #### [facility] [address] [address] [address] Torri Gomez Potassium [Moles/Vol] 5.0 mmol/L Normal 3.4-5.0 [facility] Comment on above: Performed By: #### C MP #### [facility] [address] [address] [address] Torri Gomez Protein [Mass/Vol] 7.4 g/dL Normal 6.1-8.2 [facility] Comment on above: Performed By: #### C MP #### [facility] [address] [address] [address] Torri Gomez Sodium [Moles/Vol] 137 mmol/L Normal 137-145 [facility] Comment on above: Performed By: #### C MP #### [facility] [address] [place] [address] Dr. Torri Gomez Urea nitrogen [Mass/Vol] 26.0 mg/dL Critically high 7.0-17.0 [facility] Comment on above: Performed By: #### C MP #### [facility] [address] [place] [address] Dr. Torri Gomez Urea nitrogen/Creatinine [Mass ratio] 24.3 mg/mg Normal [facility] Comment on above: Performed By: #### C MP #### [facility] [address] [place] [address] Dr. Torri Gomez CBC AUTO DIFFon 01-31-2021 BASO # 0.0 103/ul Normal 0.0-0.1 [facility] Comment on above: Performed By: #### C BC #### [facility] [address] [place] [address] Jesi Rachna Basophils/100 WBC (Bld) 0.4 % Normal 0.2-2.0 [facility] Comment on above: Performed By: #### C BC #### [facility] [address] [place] [address] Jesi Rachna EO # 0.0 103/ul Normal 0.0-0.7 [facility] Comment on above: Performed By: #### C BC #### [facility] [address] [place] [address] Jesi Rachna Eosinophils/100 WBC (Bld) 0.6 % Critically low 0.9-7.0 [facility] Comment on above: Performed By: #### C BC #### [facility] [address] [place] [address] Jesi Rachna Erythrocyte distribution width (RBC) [Ratio] 11.9 % Normal 11.0-15.0 [facility] Comment on above: Performed By: #### C BC #### [facility] [address] [place] [address] Jesi Rachna Hematocrit (Bld) [Volume fraction] 38.5 % Normal 36.0-48.0 [facility] Comment on above: Performed By: #### C BC #### [facility] [address] [place], [place] [id number] Jesi Rachna Hemoglobin (Bld) [Mass/Vol] 12.1 g/dL Normal 12.0-16.0 [facility] Comment on above: Performed By: #### C BC #### [facility] [address] [place], [place] [id number] Jesi Rachna IG # 0.01 10e3/ul Normal 0.00-0.03 [facility] Comment on above: Performed By: #### C BC #### [facility] [address] [place] [address] Jesi Rachna IG % 0.1 % Normal 0.0-0.5 [facility] Comment on above: Performed By: #### C BC #### [facility] [address] [place] [address] Jesi Rachna LYMPH # 1.7 103/ul Normal 1.2-3.8 [facility] Comment on above: Performed By: #### C BC #### [facility] [address] [place], [place] [id number] Jesi Rachna Lymphocytes/100 WBC (Bld) 26.1 % Normal 20.5-60.0 [facility] Comment on above: Performed By: #### C BC #### [facility] [address] [place], [place] [id number] Jesi Rachna MANUAL DIFF REQ NO Normal [facility] Comment on above: Performed By: #### C BC #### [facility] [address] [place], [place] [id number] Jesi Rachna MCH (RBC) [Entitic mass] 31.8 pg Normal 26.7-34.0 [facility] Comment on above: Performed By: #### C BC #### [facility] [address] [place], [place] [id number] Jesi Rachna MCHC (RBC) [Mass/Vol] 31.4 g/dL Normal 29.9-35.2 [facility] Comment on above: Performed By: #### C BC #### [facility] [address] [place] [address] Jesi Rachna MCV (RBC) [Entitic vol] 101.0 fL Critically high 81.0-99.0 [facility] Comment on above: Performed By: #### C BC #### [facility] [address] [place], [place] [id number] Jesi Briscoe MONO # 0.4 103/ul Normal 0.3-0.8 [facility] Comment on above: Performed By: #### C BC #### [facility] [address] [place], [place] [id number] Jesi Briscoe Monocytes/100 WBC (Bld) 5.2 % Normal 1.7-12.0 [facility] Comment on above: Performed By: #### C BC #### [facility] [address] [place] [address] Jesi Briscoe NEUT # 4.5 103/ul Normal 1.4-6.5 [facility] Comment on above: Performed By: #### C BC #### [facility] [address] [place] [address] Jesi Briscoe Neutrophils/100 WBC (Bld) 67.6 % Normal 43.0-75.0 [facility] Comment on above: Performed By: #### C BC #### [facility] [address] [place], [place] [id number] Jesi Briscoe Platelet mean volume (Bld) [Entitic vol] 10.3 fL Normal 9.5-13.5 [facility] Comment on above: Performed By: #### C BC #### [facility] [address] [place], [place] [id number] Jesi Briscoe PLT 329 103/ul Normal 150-450 [facility] Comment on above: Performed By: #### C BC #### [facility] [address] [place], [place] [id number] Jesisanaz Briscoe RBC 3.81 106/ul Critically low 4.20-5.40 [facility] Comment on above: Performed By: #### C BC #### [facility] [address] [place], [place] [id number] Jesi Rachna WBC 6.7 103/ul Normal 4.0-11.0 [facility] Comment on above: Performed By: #### C BC #### [facility] [address] [place] [id number] Jesi Rachna MYOGLOBINon 01-31-2021 JIMBO 44.0 ng/mL Normal <=61.5 [facility] Comment on above: Performed By: #### Danielle CORNEJO, CMP #### [facility] [address] [place], [place] [id number] Jesisanaz Briscoe PROF 14(COMP METB)on 021 Albumin [Mass/Vol] 3.7 g/dL Normal 3.5-5.0 [facility] Comment on above: Performed By: #### Danielle CORNEJO, CMP #### [facility] [address] [place], [place] [id number] Jesi Rachna Albumin/Globulin [Mass ratio] 0.9 {ratio} Normal [facility] Comment on above: Performed By: #### Danielle CORNEJO, CMP #### [facility] [address] [place], [place] [id number] Jesi Rachna ALP [Catalytic activity/Vol] 81 U/L Normal 38-126 [facility] Comment on above: Performed By: #### Danielle CORNEJO, CMP #### [facility] [address] [place], [place] [id number] Jesi Rachna ALT [Catalytic activity/Vol] 17 U/L Normal 9-52 [facility] Comment on above: Performed By: #### Danielle CORNEJO, CMP #### [facility] [address] [place], [place] [id number] Jesi Rachna Anion gap [Moles/Vol] 15.1 mmol/L Normal [facility] Comment on above: Performed By: #### Danielle CORNEJO, CMP #### [facility] [address] [place], [place] [id number] Jesi Rachna AST [Catalytic activity/Vol] 26 U/L Normal 14-36 [facility] Comment on above: Performed By: #### Danielle CORNEJO, CMP #### [facility] [address] [place], [place] [id number] Jesi Rachna Bilirubin [Mass/Vol] 0.3 mg/dL Normal 0.2-1.3 [facility] Comment on above: Performed By: #### M YO, CMP #### [facility] [address] [id number] Jesi Rachna Calcium [Mass/Vol] 9.4 mg/dL Normal 8.4-10.2 [facility] Comment on above: Performed By: #### M YO, CMP #### [facility] [address] [id number] Jesi Rachna Chloride [Moles/Vol] 104 mmol/L Normal 98-107 [facility] Comment on above: Performed By: #### M YO, CMP #### [facility] [address] [id number] Jesi Rachna CO2 [Moles/Vol] 26.0 mmol/L Normal 22.0-30.0 [facility] Comment on above: Performed By: #### M YO, CMP #### [facility] [address] [address] Jesi Rachna Creatinine [Mass/Vol] 1.21 mg/dL Critically high 0.52-1.04 [facility] Comment on above: Performed By: #### M YO, CMP #### [facility] [address] [id number] Jesi Rachna EGFR-AF EQUATORIAL GUINEAN 54 mL/min/1.73m2 Critically low >=60 [facility] Comment on above: Performed By: #### M YO, CMP #### [facility] [address] [id number] Jesi Rachna EGFR-NON AF EQUATORIAL GUINEAN 44 mL/min/1.73m2 Critically low >=60 [facility] Comment on above: Performed By: #### M YO, CMP #### [facility] [address] [id number] Jesi Rachna Globulin (S) [Mass/Vol] 3.9 g/dL Normal [facility] Comment on above: Performed By: #### M YO, CMP #### [facility] [address] [id number] Jesi Rachna Glucose [Mass/Vol] 138 mg/dL Critically high 74-106 [facility] Comment on above: Performed By: #### M YO, CMP #### [facility] [address] [place], [place] [address] Jesi Rachna Potassium [Moles/Vol] 4.1 mmol/L Normal 3.4-5.0 [facility] Comment on above: Performed By: #### M YO, CMP #### [facility] [address] [place], [place] [address] Jesi Rachna Protein [Mass/Vol] 7.6 g/dL Normal 6.1-8.2 [facility] Comment on above: Performed By: #### M YO, CMP #### [facility] [address] [id number] Jesi Rachna Sodium [Moles/Vol] 141 mmol/L Normal 137-145 [facility] Comment on above: Performed By: #### M YO, CMP #### [facility] [address] [place], [place] [address] Jesi Rachna Urea nitrogen [Mass/Vol] 19.0 mg/dL Critically high 7.0-17.0 [facility] Comment on above: Performed By: #### M YO, CMP #### [facility] [address] [id number] Jesi Rachna Urea nitrogen/Creatinine [Mass ratio] 15.7 mg/mg Normal [facility] Comment on above: Performed By: #### M YO, CMP #### [facility] [address] [id number] Jesi Rachna SED RATE [facility] 2020 SED RATE 66 mm/hr Critically high <=30 [facility] [place] [facility] Comment on above: Performed By: #### M YO, CMP #### [facility] [address] [place], [place] [address] Jesi Rachna Vital Signs Date Time Vital Sign Value Performing Clinician Facility 11-29-2023 13:43-0400 Body height 160.[address] [facility] 11-29-2023 13:43-0400 Body mass index (BMI) [Ratio] 20.9 kg/m2 [facility] 11-29-2023 13:43-0400 Body weight 53.[address] [facility] 11-29-2023 13:43-0400 Diastolic blood pressure 81 mm[Hg] [facility] 11-29-2023 13:43-0400 Heart rate 109 /min [facility] 11-29-2023 13:43-0400 Systolic blood pressure 128 mm[Hg] [facility] 01-18-2023 13:00-0400 Body height 160.02 cm Crystal Jose Other [facility] 01-18-2023 13:00-0400 Body mass index (BMI) [Ratio] 20.72 kg/m2 Crystal Jose Other [facility] 01-18-2023 13:00-0400 Body weight 53.07 kg Crystal Jose Other [facility] 01-18-2023 13:00-0400 Diastolic blood pressure 84 mm[Hg] Crystal Jose Other [facility] Other 01-18-2023 13:00-0400 Systolic blood pressure 134 mm[Hg] Crystal Jose Other [facility] Other Encounters Encounter Date Encounter Type Care Provider Facility Start: 04-08-2024 End: 05-22-2024 Unknown Lia Marcum MD Facility:[facility] Start: 03-31-2024 End: 03-31-2024 ambulatory Lia Marcum MD [facility] Start: 03-17-2024 End: 03-17-2024 ambulatory Lia Marcum MD Facility: [facility] Start: 03-10-2024 End: 03-10-2024 ambulatory Lia Marcum MD Facility: [facility] Start: 02-25-2024 End: 02-25-2024 ambulatory Lia Marcum MD Facility: [facility] Start: 01-21-2024 End: 01-21-2024 ambulatory [facility] Start: 01-14-2024 End: 01-14-2024 ambulatory Lia Marcum MD Facility:[facility] Start: 01-07-2024 End: 01-07-2024 ambulatory Lia Marcum MD Facility:[facility] Start: 11-29-2023 End: 11-29-2023 ambulatory [facility] Work Phone: Start: 11-29-2023 End: 11-29-2023 Patient encounter procedure [facility] Work Phone: Start: 01-30-2023 End: 01-30-2023 ambulatory Crystal Jose Other [facility] Other Start: 01-30-2023 Telephone encounter Crystal Jose [facility] Start: 01-19-2023 End: 01-19-2023 ambulatory Crystal Jose Other [facility] Other Start: 01-19-2023 Telephone encounter Crystal Jose [facility] Start: 01-18-2023 End: 01-18-2023 ambulatory Crystal Jose Other [facility] Other Start: 01-18-2023 Office outpatient ne w 30 minutes Crystal Jose [facility] Start: 01-25-2022 End: 01-26-[address] [place] Facility:[facility] Start: 11-29-2021 End: 11-30-[address] [place] Facility[facility] Start: 03-03-2021 End: 03-04-[address] [place] Facility[facility] Start: 01-31-2021 End: 02-01-[address] [place] Facility:[facility] Plan of Treatment Date Care Activity Detail Author DXA Skeletal system. axial Views for bone density [facility] enter XR Lumbar spine 2 or 3 Views [facility] Payers Date Payer Category Payer Medicare 2023 Unknown 1957 Medicare [id number] 1957 Unknown [id number] 1950 Unknown [id number] 2.16.84 [id number] 1952 Unknown [id number] 2.16.84 [id number] 1952 Unknown [id number] 2.16.84 [id number] 1952 Unknown [id number] 2.16.84 0.1.105084.3.579.2.593 1952 Unknown [id number] 2.16. 840.1.641178.3.579.2.196 1952 Unknown [id number] 2.16. 840.1.771975.3.579.2.196 1952 Unknown [id number] 2.16. 840.1.380219.3.579.2.196 1952 Unknown [id number] 2.16. 840.1.402565.3.579.2.196 1952 Unknown [id number] 2.16. 840.1.417872.3.579.2.196 1952 Unknown [id number] 2.16. 840.1.022603.3.579.2.196 1952 Unknown [id number] 2.16. 840.1.603293.3.579.2.196 1952 Unknown [id number] 2.16. 840.1.855923.3.579.2.196 Unknown [facility] [id number] Social History Date Type Detail Facility Unknown if ever smoked [facility] Other Sex Assigned At Sex Assigned At Bir th [facility] Other Start: 11-29-2023 Tobacco smoking status NHIS Never smoked tobacco (finding) [facility] Start: 1950 Sex Assigned At Female F [facility] Evaluation note 01-18-2023 Note Date & Type Note Facility 01-18-2023 Evaluation note Encounter Date Diagnosis Assessment Notes Jan, Piriformis syndrome of right side (ICD-10 - G57.01) Order for PT given to pt. Consider repeat xray, Neurosurgery referral. Requests short term rx of pain med. 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 [facility] Other Evaluation note Note Date & Type Note Facility Evaluation note No Information [employer] Other Evaluation note Note Date & Type Note Facility Evaluation note Diagnosis Onset Date Bilateral sacroiliitis acute Hyperglycemia acute Low vitamin D level acute Medicare annual wellness visit, subsequent acute Osteopenia acute Osteoporosis acute [facility] Work Phone: History general Narrative - Reported Note Date & Type Note Facility History general Narrative - Reported Type Medical History osteoporosis [facility] Other Summary Purpose Family History No Family [...] section and content) DATE CREATED AUTHOR 01/28/2022 Preston pinon DATE CREATED AUTHOR AUTHOR'S ORGANIZ ATION 05/25/2024 [facility] REASON FOR VISIT (unrecogniz ed section and [...] BE BASED ON THE PRIMARY CLINICAL RECORDS. [facility] [email or web address] provides no warranty or guarantee of the accuracy or completeness of information in this document.
[2024-11-14 08:04] LABS: Basophils Percent Auto 0.8 % (0.2-2.0); Eosinophils Absolute Auto 0.2 10^3/uL (0.0-0.7); Eosinophils Percent Auto 5.3 % (0.9-7.0); Hematocrit 40.8 % (36.0-48.0); Hemoglobin 13.4 g/dL (12.0-16.0); Immature Granulocytes Abs Auto 0.01 10^3/uL (0.00-0.03); Immature Granulocytes Pct Auto 0.3 % (0.0-0.5); Lymphocytes Absolute Auto 1.5 10^3/uL (1.2-3.8); Lymphocytes Percent Auto 40.3 % (20.5-60.0); Mean Corpuscular HGB Conc 32.8 g/dL (29.9-35.2); Mean Corpuscular Hemoglobin 32.5 pg (26.7-34.0); Mean Platelet Volume 9.9 fL (9.5-13.5); Monocytes Absolute Auto 0.4 10^3/uL (0.3-0.8); Monocytes Percent Auto 10.3 % (1.7-12.0); Neutrophils Absolute Auto 1.6 10^3/uL (1.4-6.5); Platelet Count 248 10^3/uL (150-450); Red Blood Count 4.12 10^6/uL (4.20-5.40); Red Cell Distribution Width 11.7 % (11.0-15.0); White Blood Count 3.6 10^3/uL (4.0-11.0)
[2024-11-14 08:33] LABS: Estimated Average Glucose 117 mg/dL; Glycohemoglobin A1C 5.7 % (4.5-6.2)
[2024-11-14 11:03] LABS: Anion Gap 14.4; BUN Creatinine Ratio 22.4; Calcium 9.4 mg/dL (8.5-10.1); Chloride 106 mmol/L (98-107); Estimated GFR (African America >60 (>=60 mL/min/1.73m^2); Estimated GFR (Non-African Ame 50 (>=60 mL/min/1.73m^2); Glucose 100 mg/dL (74-106); Potassium 4.4 mmol/L (3.5-5.1); Sodium 142 mmol/L (136-145); TSH W/ REFLEX FT4 2.271 uIU/mL (0.358-3.740)
== END 2024-11-14 07:40 | disposition home or self-care (01) ==
LOC: LAB 07:42
PROVIDERS: PCP Family Medicine; Visit Provider Family Medicine
DX: M85.80 Other specified disorders of bone density and structure, unspecified site (principal); R79.89 Other specified abnormal findings of blood chemistry; R73.03 Prediabetes; M79.2 Neuralgia and neuritis, unspecified
CPT/HCPCS: 36415; 80048; 82306; 82728; 83036; 84443; 85025